=== PATIENT | female | born 1955 | race Caucasian/White ===

== ENCOUNTER → 2016-04-01 | Outpatient (CLI) | payer OTHER ==
[~2016-04-01] MED LIST: ACET325T96 PO; BISA10SU38 PR; BISA10SU7 PR; CLON0.5T3 PO; CPR500 PO; DOCU-94 PO; ERGO1CAP41 PO; FRC PO; HYOS1TAB PO; IBUP-1450 PO; LCTL45 PO; MOML PO; MULT-884 PO; NTRS PO; NYSS5 PO; ONDA4TAB46 PO; POTA-74 PO; POTA10CA28 PO; QUET1TAB32 PO; RXC/5 PO; RXC5 PO; SENN-61 PO; SODIENE PR; SORB70SO6 PO; [UNRECOGNIZED DRUG - CODE] PO
[2016-04-01 10:50] LABS: HEMATOCRIT 39.1 % (37-47); MEAN CELL VOLUME 93.1 fL (80-100); MEAN CORPUSCULAR HEMOGLOBIN 30.5 pg (25-34); MEAN CORPUSCULAR HGB CONC 32.7 g/dl (32-36); MEAN PLATELET VOLUME 10.8 fL (7.4-10.4); PLATELET COUNT 137 K/uL (130-400); WHITE BLOOD COUNT 3.84 K/uL (4.8-10.8)
[2016-04-01 10:57] LABS: ALT/SGPT 20 U/L (12-78); AST/SGOT 14 U/L (15-37); BLOOD UREA NITROGEN 12 mg/dl (7-18); BUN/CREATININE RATIO 21.3 (10-20); CALCIUM 8.4 mg/dl (8.5-10.1); CARBON DIOXIDE 28 mmol/L (21-32); CHLORIDE 111 mmol/L (98-107); CREATININE 0.56 mg/dl (0.60-1.20); GLUCOSE 78 mg/dl (70-99); POTASSIUM 3.8 mmol/L (3.5-5.1); SODIUM 147 mmol/L (136-145)
[2016-04-01 11:07] LABS: ALB/GLOB RATIO 0.8 (0.9-2)
[2016-04-01 11:08] LABS: ALKALINE PHOSPHATASE 86 U/L (45-117)
[2016-04-01 11:44] LABS: BASO % 0.3 %; BASO ABS # 0.01 K/uL (0-0.2); COMPLETE YES; IG% 0.3 %; LYMPH % 58.3 %; LYMPH ABS # 2.24 K/uL (1.2-3.4); NEUT % 34.1 %
--- NOTE | 2016-04-02 09:53 | CODING QUERY NO DIAGNOSIS ---
TREATMENT RENDERED WITHOUT A DIAGNOSIS 51 To promote full compliance with coding requirements relating to patient care, physician participation is requested in all cases of university lecturer uncertainty. Please assist us with providing a diagnosis/symptom for the test(s) below: A diagnosis/symptom was not documented on your Order. A valid diagnosis/symptom is required to bill all insurances. Please remember that we are unable to code a diagnosis of rule out, probable, possible, questionable, or suspected. DOS Tests that require a diagnosis: * TSH DIAGNOSIS: *THE DX CODE S06.zx ON YOUR ORDER IS AN INVALID CODE, CAN YOU PLEASE ADD CORRECT CODE Provider Signature: Date: Thank you Anni Coronel Health Information Management Once completed, please kindly fax back to [phone] For questions please call [phone]
== END | disposition home or self-care (01) ==
LOC: C.LABUPUNI 10:26
PROVIDERS: ATTEND Family Medicine
DX: E87.6 Hypokalemia (principal); R48.9 Unspecified symbolic dysfunctions; E03.9 Hypothyroidism, unspecified

== ENCOUNTER → 2016-04-08 | Outpatient (CLI) | payer OTHER ==
[2016-04-08 09:20] LABS: BLOOD UREA NITROGEN 13 mg/dl (7-18); BUN/CREATININE RATIO 23.8 (10-20); CALCIUM 8.6 mg/dl (8.5-10.1); CARBON DIOXIDE 28 mmol/L (21-32); CHLORIDE 109 mmol/L (98-107); CREATININE 0.53 mg/dl (0.60-1.20); GLUCOSE 92 mg/dl (70-99); POTASSIUM 3.8 mmol/L (3.5-5.1); SODIUM 146 mmol/L (136-145)
--- NOTE | 2016-04-12 06:40 | CODING QUERY NO DIAGNOSIS ---
: 1955 TREATMENT RENDERED WITHOUT A DIAGNOSIS To promote full compliance with coding requirements relating to patient care, physician participation is requested in all cases of tobacco buyer uncertainty. Please assist us with providing a diagnosis/symptom for the test(s) below: A diagnosis/symptom was not documented on your Order. A valid diagnosis/symptom is required to bill all insurances. Please remember that we are unable to code a diagnosis of rule out, probable, possible, questionable, or suspected. Tests that require a diagnosis: * BMP DOS: 04/08/16 DIAGNOSIS: Provider Signature: Date: Thank you Nan Manning Health Information Management Once completed, please kindly fax back to [phone] For questions please call [phone]
== END ==
LOC: C.LABUPUNI 08:52
PROVIDERS: ATTEND Family Medicine
DX: R63.4 Abnormal weight loss (principal)

== ENCOUNTER → 2016-05-26 | Outpatient (CLI) | payer OTHER ==
[2016-05-26 10:16] LABS: BLOOD UREA NITROGEN 8 mg/dl (7-18); CALCIUM 8.4 mg/dl (8.5-10.1); CARBON DIOXIDE 29 mmol/L (21-32); CHLORIDE 109 mmol/L (98-107); CREATININE 0.43 mg/dl (0.60-1.20); GLUCOSE 73 mg/dl (70-99); POTASSIUM 3.5 mmol/L (3.5-5.1); SODIUM 145 mmol/L (136-145)
== END ==
LOC: C.LABUPUNI 09:41
PROVIDERS: ATTEND Family Medicine
DX: R48.9 Unspecified symbolic dysfunctions (principal)

== ENCOUNTER → 2016-07-14 | Outpatient (CLI) | payer OTHER ==
[~2016-07-14] MED LIST changes: +CHOL2000 PO; -ERGO1CAP41 PO; +ERGO500011 PO; +FAMO20TA11 PO; +GABA1CAP PO; +IPRASOL4 INH; +MULT-506 PO; +POTA20TA16 PO; +QUET1TAB30 PO
[2016-07-14 08:45] LABS: ALT/SGPT 15 U/L (12-78); BLOOD UREA NITROGEN 10 mg/dl (7-18); BUN/CREATININE RATIO 20.6 (10-20); CARBON DIOXIDE 27 mmol/L (21-32); CHLORIDE 110 mmol/L (98-107); CREATININE 0.48 mg/dl (0.60-1.20); GLUCOSE 72 mg/dl (70-99); POTASSIUM 3.8 mmol/L (3.5-5.1); SODIUM 144 mmol/L (136-145)
[2016-07-14 08:55] LABS: ALB/GLOB RATIO 0.8 (0.9-2); ALKALINE PHOSPHATASE 92 U/L (45-117); AST/SGOT 10 U/L (15-37)
[2016-07-14 09:05] LABS: BASO % 0.2 %; BASO ABS # 0.01 K/uL (0-0.2); COMPLETE YES; HEMATOCRIT 42.2 % (37-47); LYMPH % 48.7 %; MEAN CELL VOLUME 95.3 fL (80-100); MEAN CORPUSCULAR HEMOGLOBIN 31.4 pg (25-34); MEAN CORPUSCULAR HGB CONC 32.9 g/dl (32-36); MEAN PLATELET VOLUME 10.6 fL (7.4-10.4); MONO % 5.6 %; NEUT % 45.5 %; PLATELET COUNT 160 K/uL (130-400); RED BLOOD COUNT 4.43 M/uL (4.2-5.4); WHITE BLOOD COUNT 5.34 K/uL (4.8-10.8)
[2016-07-14 09:06] LABS: CALCIUM 8.8 mg/dl (8.5-10.1)
--- NOTE | 2016-07-19 10:15 | CODING QUERY MEDICAL NECESSITY ---
SUPPORTING DIAGNOSIS NEEDED A supporting diagnosis is required for the test/procedure performed on this patient in order for us to be reimbursed by the patient's insurance. Please provide a supporting diagnosis for the following test/procedure listed below next to the test name along with your signature. *If there is no additional diagnosis for this patient that would support the following test/procedure please document that below next to the test/procedure. Test(s)/Procedure(s) that require a supporting diagnosis: DOS 07/14 * Vitamin D DIAGNOSIS: Provider Signature: Date: Thank you Maral Poe Health Information Management Once completed, please kindly fax back to [phone] For questions please call [phone]
== END ==
LOC: C.LABUPUNI 08:15
PROVIDERS: ATTEND Family Medicine
DX: I10 Essential (primary) hypertension (principal); S06.2X9A Diffuse traumatic brain injury with loss of consciousness of unspecified duration, initial encounter; X58.XXXA Exposure to other specified factors, initial encounter; I69.910 Attention and concentration deficit following unspecified cerebrovascular disease; E55.9 Vitamin D deficiency, unspecified

== ENCOUNTER 2016-07-18 12:56 | Inpatient (IN) | payer OTHER ==
[~2016-07-18] VITALS: Ht 165.1 cm; Wt 62.0 kg
[~2016-07-18 12:56] MED LIST changes: -ACET325T96 PO; -BISA10SU38 PR; -BISA10SU7 PR; -CHOL2000 PO; -CLON0.5T3 PO; -CPR500 PO; -DOCU-94 PO; -ERGO500011 PO; -FAMO20TA11 PO; -GABA1CAP PO; -HYOS1TAB PO; -IBUP-1450 PO; -IPRASOL4 INH; -LCTL45 PO; -MOML PO; -MULT-506 PO; -MULT-884 PO; -NTRS PO; -NYSS5 PO; -ONDA4TAB46 PO; -POTA-74 PO; -POTA10CA28 PO; -POTA20TA16 PO; -QUET1TAB30 PO; -QUET1TAB32 PO; -RXC/5 PO; -RXC5 PO; -SENN-61 PO; -SODIENE PR; -SORB70SO6 PO; -[UNRECOGNIZED DRUG - CODE] PO
[2016-07-18 13:56] LABS: COMPLETE YES; HEMATOCRIT 48.3 % (37-47); IG% 0.2 %; LYMPH % 4.4 %; LYMPH ABS # 0.48 K/uL (1.2-3.4); MEAN CELL VOLUME 93.4 fL (80-100); MEAN CORPUSCULAR HEMOGLOBIN 31.5 pg (25-34); MEAN CORPUSCULAR HGB CONC 33.7 g/dl (32-36); MEAN PLATELET VOLUME 10.4 fL (7.4-10.4); MONO % 6.4 %; PLATELET COUNT 181 K/uL (130-400); RED BLOOD COUNT 5.17 M/uL (4.2-5.4); WHITE BLOOD COUNT 10.89 K/uL (4.8-10.8)
[2016-07-18] MEDS ORDERED: SODIUM CHLORIDE 0.9% 1000ML 500 ML IV STA (13:56)
[2016-07-18] MEDS ORDERED: SODIUM CHLORIDE 0.9% 1000ML 1,000 ML IV STA (13:56)
[2016-07-18] MEDS ORDERED: ONDANSETRON INJ 2 MG/ML 2 ML VIAL IV STA (13:56)
[2016-07-18] MEDS ORDERED: PROMETHAZINE HCL INJ 6.25 MG in SODIUM CHLORIDE 0.9% 50ML 50 ML IV STA (13:56)
[2016-07-18] MEDS ORDERED: MoRPHine SULFATE 4 MG/ML 1 ML CARP\\VIAL IV PRN (14:00)
--- NOTE | 2016-07-18 14:02 | EMERGENCY ROOM VISIT NOTE ---
History Report prepared by Twyla: Luis Dacosta Under the Supervision of: Dr. Elias Merritt M.D. First contact with patient: 13:49 Chief Complaint: ABDOMINAL PAIN Stated Complaint: ABD PAIN History of Present Illness The patient is a 60 year old female who presents to the Emergency Room via EMS with complaints of abdominal pain that began yesterday. This history is given by the family due to the patient's altered mental status that is baseline since her brain aneurysm. 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 This occurred 9 years ago. Via the family, the patient has been having severe abdominal pain with vomiting and diarrhea since yesterday. The family states that the REPAIR DEPARTMENT MANAGER stated that she looked worse today that she was yesterday. They deny any other symptoms at this time. She has a Sulfa allergy. Source of History: family, nursing staff Onset: yesterday Position: abdomen Symptom Intensity: severe Quality: ache Timing: worsening Associated Symptoms: + abdominal pain, + diarrhea, + vomiting Note: They deny any other abnormal symptoms at this time. Review of Systems See HPI for pertinent positives & negatives. A total of 10 systems reviewed and were otherwise negative. Past Medical & Surgical Medical Problems: (1) Brain injury (2) Hyperlipidemia (3) Hypertension Surgical Problems: (1) H/O brain surgery Family History Omitted secondary to age. Social History Smoking Status: Never Smoker Smokeless Tobacco Use: No Alcohol Use: none Drug Use: none Housing Status: assisted living Occupation Status: disabled Current/Historical Medications Scheduled Acetaminophen Tab (Tylenol), 650 MG PO Q4H Clonazepam (Klonopin), 0.5 MG PO BID Docusate Sodium (Colace), 100 CAP PO QAM Enteral Nutrition Formula (Nutritional Supplement), 1 DOSE PO QAM Ergocalciferol (Vitamin D 91729 Unit), 50,000 UNIT PO WK Famotidine (Pepcid Ac Ez Chews Maximu), 20 MG PO QAM Hyoscyamine Sulfate (Levsin), 0.125 MG PO QID Lactulose (Lactulose), 30 GM PO QAM Multiple Vitamin (Multi Vitamin Daily), 1 TAB PO QAM Potassium Chloride (Micro-K Ext Rel), 20 MEQ PO QAM Quetiapine Fumarate (Seroquel), 50 MG PO HS Senna (Senokot), 1 TAB PO BID Sodium Phosphate/Biphosphate (Fleet Enema), 1 EA MI DAILY Scheduled PRN Bisacodyl (Bisac-Evac), 10 MG MI UD PRN for Constipation Bisacodyl (Dulcolax), 10 MG MI UD PRN for Constipation Ibuprofen (Motrin), 600 MG PO Q6H PRN for Pain Magnesium Hydroxide (Milk Of Magnesia), 30 ML PO UD PRN for Constipation Ondansetron Hcl (Zofran), 4 MG PO Q4H PRN for Nausea Oxycodone HCl (Oxycodone HCl), 5 MG PO TID PRN for Headache Sorbitol (Laxative) (Sorbitol), 15 ML PO HS PRN for Constipation Allergies Coded Allergies: Morphine (Verified Allergy, Intermediate, hives, 07/18/16) Sulfa Antibiotics (Verified Allergy, Unknown, UNKNOWN, 07/18/16) Physical Exam Vital Signs Date Time Temp Pulse Resp B/P Pulse Ox O2 Delivery O2 Flow Rate FiO2 07/18/16 15:28 78 07/18/16 15:09 83 140/91 95 Room Air 07/18/16 14:15 72 20 114/68 98 Room Air 07/18/16 13:05 76 07/18/16 13:03 37.2 73 30 168/92 94 Room Air Physical Exam GENERAL: Patient is in moderate distress secondary to pain. Nonverbal. Grunting. HEENT: There is a deformity to the right skull consistent with previous surgery. Moist mucous membranes. No acute facial trauma. NECK: No stridor, no adenopathy, no meningismus, trachea is midline. LUNGS: Clear to auscultation bilaterally, no wheeze, no rhonchi, breath sounds equal. HEART: Without murmurs gallops or rubs, regular rate and rhythm. ABDOMEN: Soft, appears nontender by exam, bowel sounds positive, no hernias, no peritonitis. EXTREMITIES: No cyanosis or edema, full range of motion of all the joints without pain or difficulty, no signs for acute trauma. NEUROLOGIC: Nonverbal. Awake. Left sided paralysis. SKIN: No rash, no jaundice, no diaphoresis. Medical Decision & Procedures ER Provider Diagnostic Interpretation: Radiology results are stated below per my review and radiologist interpretation: CHEST ONE VIEW PORTABLE HISTORY: Generalized abdominal pain. COMPARISON: None. FINDINGS: The heart is normal in size. There are low lung volumes. No pleural effusions. No pneumothorax. No focal lung consolidations to suggest pneumonia. No evidence for pulmonary edema. IMPRESSION: No acute process. Electronically signed by: Rigo Reed M.D. 07/18/2016 2:38 PM Dictated Date/Time: 07/18/2016 2:37 PM ABDOMEN AND PELVIS CT WITH IV CONTRAST CT DOSE: 509.26 mGy.cm HISTORY: Generalized abdominal pain. TECHNIQUE: Multiaxial CT images of the abdomen and pelvis were performed following the use of intravenous contrast. COMPARISON STUDY: None. FINDINGS: Bibasilar linear densities consistent with subsegmental atelectasis. No pneumoperitoneum. No pneumatosis. No suspicious lytic or blastic osseous lesions. There are 3 hypodense lesions within the liver. Dominant lesion within the right hepatic lobe measures 1.4 cm. These are incompletely characterized on this single phase study but favor cysts or hemangiomas. The spleen, pancreas, adrenal glands are unremarkable. The kidneys enhance normally. Bilateral peripelvic renal cysts. The bladder is unremarkable. The uterus and bilateral adnexa are within normal limits. No bowel wall thickening or obstruction. A few colonic diverticula. Normal appendix. No retroperitoneal lymphadenopathy. Distended gallbladder with an enhancing wall and pericholecystic fluid/inflammatory change. This is consistent with acute cholecystitis. Normal caliber common bile duct. IMPRESSION: 1. Distended gallbladder with an enhancing wall and pericholecystic fluid/inflammatory change. This is consistent with acute cholecystitis. 2. Normal caliber common bile duct. 3. No bowel wall thickening or obstruction. 4. Additional findings as described above. Electronically signed by: Rigo Reed M.D. 07/18/2016 3:24 PM Dictated Date/Time: 07/18/2016 3:19 PM Laboratory Results 07/18/16 13:40 Red Blood Count 5.17, Mean Corpuscular Volume 93.4, Mean Corpuscular Hemoglobin 31.5, Mean Corpuscular Hemoglobin Concent 33.7, Mean Platelet Volume 10.4, Neutrophils (%) (Auto) 89.0, Lymphocytes (%) (Auto) 4.4, Monocytes (%) (Auto) 6.4, Eosinophils (%) (Auto) 0.0, Basophils (%) (Auto) 0.0, Neutrophils # (Auto) 9.69, Lymphocytes # (Auto) 0.48, Monocytes # (Auto) 0.70, Eosinophils # (Auto) 0.00, Basophils # (Auto) 0.00 07/18/16 13:40 Test 07/18/16 13:40 07/18/16 14:18 07/18/16 15:30 White Blood Count 10.89 K/uL (4.8-10.8) Red Blood Count 5.17 M/uL (4.2-5.4) Hemoglobin 16.3 g/dL (12.0-16.0) Hematocrit 48.3 % (37-47) Mean Corpuscular Volume 93.4 fL (80-100) Mean Corpuscular Hemoglobin 31.5 pg (25-34) Mean Corpuscular Hemoglobin Concent 33.7 g/dl (32-36) Platelet Count 181 K/uL (130-400) Mean Platelet Volume 10.4 fL (7.4-10.4) Neutrophils (%) (Auto) 89.0 % Lymphocytes (%) (Auto) 4.4 % Monocytes (%) (Auto) 6.4 % Eosinophils (%) (Auto) 0.0 % Basophils (%) (Auto) 0.0 % Neutrophils # (Auto) 9.69 K/uL (1.4-6.5) Lymphocytes # (Auto) 0.48 K/uL (1.2-3.4) Monocytes # (Auto) 0.70 K/uL (0.11-0.59) Eosinophils # (Auto) 0.00 K/uL (0-0.5) Basophils # (Auto) 0.00 K/uL (0-0.2) RDW Standard Deviation 44.9 fL (36.4-46.3) RDW Coefficient of Variation 13.1 % (11.5-14.5) Immature Granulocyte % (Auto) 0.2 % Immature Granulocyte # (Auto) 0.02 K/uL (0.00-0.02) Prothrombin Time 12.0 SECONDS (9.0-12.0) Prothromb Time International Ratio 1.1 (0.9-1.1) Activated Partial Thromboplast Time 23.8 SECONDS (21.0-31.0) Partial Thromboplastin Ratio 0.9 Anion Gap 8.0 mmol/L (3-11) Est Creatinine Clear Calc Drug Dose 70.9 ml/min Estimated GFR () 100.6 Estimated GFR (Non- 86.8 BUN/Creatinine Ratio 14.1 (10-20) Calcium Level 9.4 mg/dl (8.5-10.1) Total Bilirubin 2.1 mg/dl (0.2-1) Aspartate Amino Transf (AST/SGOT) 196 U/L (15-37) Alanine Aminotransferase (ALT/SGPT) 144 U/L (12-78) Alkaline Phosphatase 131 U/L (45-117) Troponin I 0.016 ng/ml (0-0.045) Total Protein 8.0 gm/dl (6.4-8.2) Albumin 3.5 gm/dl (3.4-5.0) Globulin 4.5 gm/dl (2.5-4.0) Albumin/Globulin Ratio 0.8 (0.9-2) Lipase 47 U/L (73-393) Chemistry Specimen Hemolysis Lactic Acid Level 2.5 mmol/L (0.4-2.0) Urine Color DK YELLOW Urine Appearance CLOUDY (CLEAR) Urine pH 6.0 (4.5-7.5) Urine Specific [place] 1.023 (1.000-1.030) Urine Protein TRACE (NEG) Urine Glucose (UA) NEG (NEG) Urine Ketones 1+ (NEG) Urine Occult Blood NEG (NEG) Urine Nitrite POS (NEG) Urine Bilirubin NEG (NEG) Urine Urobilinogen NEG (NEG) Urine Leukocyte Esterase TRACE (NEG) Urine WBC (Auto) 1-5 /hpf (0-5) Urine RBC (Auto) 0-4 /hpf (0-4) Urine Hyaline Casts (Auto) 0 /lpf (0-5) Urine Epithelial Cells (Auto) 0-5 /lpf (0-5) Urine Bacteria (Auto) 4+ (NEG) Laboratory results reviewed by me. Medications Administered Medications (Trade) Dose Ordered Sig/Mini Route Start Time Stop Time Status Last Admin Dose Admin Sodium Chloride (Nss 1000ml) 500 ml @ 999 mls/hr Q31M STAT IV 07/18/16 13:56 07/18/16 14:26 DC 07/18/16 15:00 999 MLS/HR Ondansetron HCl 4 mg 4 mg NOW STAT IV 07/18/16 13:56 07/18/16 13:59 DC 07/18/16 14:10 4 MG Sodium Chloride (Nss 1000ml) 1,000 ml @ 200 mls/hr Q5H STAT IV 07/18/16 13:56 07/18/16 18:55 DC 07/18/16 14:12 200 MLS/HR Morphine Sulfate 4 mg 4 mg Q30M PRN IV 07/18/16 14:00 07/18/16 19:14 DC 07/18/16 14:11 4 MG Promethazine HCl/ Sodium Chloride (Phenergan Inj/ Nss 50ml) 50.25 ml @ 204 mls/hr NOW STAT IV 07/18/16 13:56 07/18/16 14:10 DC 07/18/16 14:12 204 MLS/HR Diphenhydramine HCl (Benadryl Inj) 50 mg STK-MED ONCE .ROUTE 07/18/16 14:27 07/18/16 14:28 DC 07/18/16 14:24 50 MG Piperacillin Sod/ Tazobactam Sod (Zosyn Iv) 4.5 gm NOW STAT IV 07/18/16 15:30 07/18/16 15:32 DC 07/18/16 17:36 4.5 GM ECG Indication: abdominal pain Rate (beats per minute): 72 Rhythm: normal sinus Findings: no acute ischemic change, no ectopy ED Course 1349: The patient was evaluated in room B4B. A complete history and physical exam was performed. 1356: Ordered Promethazine HCl 6.25 mg/Sodium Chloride 50.25 ml @ 204 mls/hr IV , Sodium Chloride 1000 ml @ 200 mls/hr IV, Zofran Inj 4 mg IV, Sodium Chloride 500 ml @ 999 mls/hr IV 1400: Ordered Morphine Sulfate 4 mg IV 1427: Ordered Benadryl Inj 25 mg .ROUTE 1530: Ordered Zosyn Iv 4.5 gm IV 1533: At this time, I spoke with Dr. Blackmon of General Surgery. He recommended further evaluation with medicine. He said the patient should receive IV antibiotics and eventually GI. 1541: Upon reexamination the patient is resting. I discussed results and treatment plan with the patient's family. They verbalize agreement and understanding. The patient will be evaluated by Dr. Devine - [facility] [place], for further management. Medical Decision Differential diagnosis includes but is not limited to viral illness, dehydration , bowel obstruction, foodborne illness, UTI, cardiac ischemia, diverticulitis, appendicitis, acute cholecystitis and pneumonia. There is a mild leukocytosis, this could be consistent with infection. No concerning anemia. Potassium is slightly low, no kidney failure. Hepatitis was present. No pancreatitis. Lactic acid level was mildly elevated, this could be consistent with sepsis and/or dehydration. Urinalysis is suggestive of infection. Urine culture is pending. Chest film does not show pneumonia or free air. EKG shows a sinus rhythm, no acute ischemia. Abdominal and pelvis CT does not show any bowel obstruction or diverticulitis. Acute cholecystitis was noted. The patient received IV saline, IV Zofran and IV morphine. She was given IV Zosyn. She had a histamine reaction from the morphine and received IV Benadryl with a good response. Admission/observation is warranted. I did speak with the on-call surgeon as well as the on-call hospitalist. Case management has been involved. I did inform the family of all the findings. Consults Time Called: 1530 Consulting Physician: Dr. Blackmon - General Surgery Returned Call: [phone] We discussed the patient's case. Please see the ED course for more information. Additional Consults: Time Called: 1538 Consulted Physician: Dr. Devine - [facility] [place] Returned Call: [phone] Additional Comments: He will be evaluating the patient for further management. Impression Primary Impression: Acute cholecystitis Scribe Attestation The scribe's documentation has been prepared under my direction and personally reviewed by me in its entirety. I confirm that the note above accurately reflects all work, treatment, procedures, and medical decision making performed by me. Departure Information Dispostion Being Evaluated By Hospitalist Referrals [facility] (PCP) Patient Instructions My [facility]
[2016-07-18 14:15] LABS: ALB/GLOB RATIO 0.8 (0.9-2); BUN/CREATININE RATIO 14.1 (10-20); CALCIUM 9.4 mg/dl (8.5-10.1); CREATININE 0.74 mg/dl (0.60-1.20); POTASSIUM 2.9 mmol/L (3.5-5.1)
[2016-07-18] MEDS ORDERED: [UNRECOGNIZED DRUG - CODE] PO (14:21)
[2016-07-18] MEDS ORDERED: LCTL45 PO (14:21)
[2016-07-18] MEDS ORDERED: DOCU-94 PO (14:21)
[2016-07-18] MEDS ORDERED: NTRS PO (14:24)
[2016-07-18] MEDS ORDERED: MULT-884 PO (14:24)
[2016-07-18] MEDS ORDERED: POTA-74 PO (14:24)
[2016-07-18] MEDS ORDERED: POTA10CA28 PO (14:25)
[2016-07-18 14:27] LABS: INR 1.1 (0.9-1.1); PARTIAL THROMBOPLASTIN RATIO 0.9
[2016-07-18] MEDS ORDERED: CLON0.5T3 PO (14:27)
[2016-07-18] MEDS ORDERED: SORB70SO6 PO (14:27)
[2016-07-18] MEDS ORDERED: SENN-61 PO (14:27)
[2016-07-18] MEDS ORDERED: ERGO500011 PO (14:27)
[2016-07-18] MEDS ORDERED: DiphenhydrAMINE HCL 50 MG/ML VIAL ONE (14:27)
[2016-07-18] MEDS ORDERED: QUET1TAB32 PO (14:27)
[2016-07-18] MEDS ORDERED: RXC/5 PO (14:29)
[2016-07-18] MEDS ORDERED: OPTIRAY 320 IV PRN (14:30)
[2016-07-18] MEDS ORDERED: HYOS1TAB PO (14:31)
[2016-07-18] MEDS ORDERED: BISA10SU7 PR (14:31)
[2016-07-18] MEDS ORDERED: BISA10SU38 PR (14:31)
[2016-07-18] MEDS ORDERED: SODIENE PR (14:32)
[2016-07-18] MEDS ORDERED: MOML PO (14:32)
[2016-07-18] MEDS ORDERED: IBUP-1450 PO (14:32)
[2016-07-18] MEDS ORDERED: ACET325T96 PO (14:33)
[2016-07-18] MEDS ORDERED: ONDA4TAB46 PO (14:33)
--- NOTE | 2016-07-18 14:40 | DIAGNOSTIC IMAGING REPORT ---
CHEST ONE VIEW PORTABLE HISTORY: Generalized abdominal pain. COMPARISON: None. FINDINGS: The heart is normal in size. There are low lung volumes. No pleural effusions. No pneumothorax. No focal lung consolidations to suggest pneumonia. No evidence for pulmonary edema. IMPRESSION: No acute process. Electronically signed by: Rigo Reed M.D. 07/18/2016 2:38 PM Dictated Date/Time: 07/18/2016 2:37 PM
--- NOTE | 2016-07-18 15:27 | DIAGNOSTIC IMAGING REPORT ---
ABDOMEN AND PELVIS CT WITH IV CONTRAST CT DOSE: 509.26 mGy.cm HISTORY: Generalized abdominal pain. TECHNIQUE: Multiaxial CT images of the abdomen and pelvis were performed following the use of intravenous contrast. COMPARISON STUDY: None. FINDINGS: Bibasilar linear densities consistent with subsegmental atelectasis. No pneumoperitoneum. No pneumatosis. No suspicious lytic or blastic osseous lesions. There are 3 hypodense lesions within the liver. Dominant lesion within the right hepatic lobe measures 1.4 cm. These are incompletely characterized on this single phase study but favor cysts or hemangiomas. The spleen, pancreas, adrenal glands are unremarkable. The kidneys enhance normally. Bilateral peripelvic renal cysts. The bladder is unremarkable. The uterus and bilateral adnexa are within normal limits. No bowel wall thickening or obstruction. A few colonic diverticula. Normal appendix. No retroperitoneal lymphadenopathy. Distended gallbladder with an enhancing wall and pericholecystic fluid/inflammatory change. This is consistent with acute cholecystitis. Normal caliber common bile duct. IMPRESSION: 1. Distended gallbladder with an enhancing wall and pericholecystic fluid/inflammatory change. This is consistent with acute cholecystitis. 2. Normal caliber common bile duct. 3. No bowel wall thickening or obstruction. 4. Additional findings as described above. Electronically signed by: Rigo Reed M.D. 07/18/2016 3:24 PM Dictated Date/Time: 07/18/2016 3:19 PM
[2016-07-18] MEDS ORDERED: PIPERACILLIN/TAZOBACTAM 4.5 GM/100ML D5W IV STA (15:30)
[2016-07-18] MEDS ORDERED: ACETAMINOPHEN 325 MG TAB PO PRN (16:00)
[2016-07-18] MEDS ORDERED: ONDANSETRON INJ 2 MG/ML 2 ML VIAL IV PRN (16:00)
[2016-07-18] MEDS ORDERED: MoRPHine SULFATE 2 MG/ML CARP IV PRN (16:00)
[2016-07-18 16:19] LABS: URINE APPEARANCE CLOUDY (CLEAR); URINE BILIRUBIN NEG (NEG); URINE COLOR DK YELLOW; URINE EPITHELIAL CELL AUTO 0-5 /lpf (0-5); URINE NITRITE POS (NEG); URINE SPECIFIC GRAVITY 1.023 (1.000-1.030); UROBILINOGEN NEG (NEG); ZZURINE CULT IF INDIC CATH YES
[2016-07-18 16:24] LABS: MANUAL MICROSCOPIC REQUIRED? NO; REVIEW REQ? NO
[2016-07-18 16:37] VITALS: Ht 165.1 cm; Wt 62.0 kg
--- NOTE | 2016-07-18 17:04 | History and Physical ---
History & Physical Date & Time of Service: Jul 18, 2016 at 16:48 Chief Complaint: Abd Pain Primary Care Physician: Eben Thayer History of Present Illness Source: family, hospital records, [facility] 60 yo female with h/o large right sided stroke that required craniotomy, but unfortunately left her with left sided paralysis and non-verbal status, was sent to the ED from [facility] due to vomiting and generally not looking well. The patient could not give any history, all was obtained from the ED physician who also discussed with the SNF staff. All they could say was that she was eating less, vomiting and seemed uncomfortable. No fevers were documented and vitals appeared stable. She was sent to the ED for evaluation. She was afebrile, vitals stable, WBC was 10.8. A CT abdomen/pelvis showed cholecystitis , no signs of biliary duct dilation. Case was discussed with surgery by the ED physician and he recommended IV fluids and antibiotics and GI consultation to evaluate for biliary stones. Her LFT were noted to be mildly elevated. On my exam, the patient was non-verbal, no history. I spoke with family members here in the ED, they could not offer me any other history. I answered all of their questions. Past Medical/Surgical History H/o right sided stroke, large, with craniotomy residual left sided paralysis, UE contracture aphasia, completely non-verbal Medical Problems: (1) Brain injury Status: Chronic (2) Hyperlipidemia Status: Chronic (3) Hypertension Status: Chronic Surgical Problems: (1) H/O brain surgery Status: Resolved Social History Smoking Status: Never Smoker Smokeless Tobacco Use: No Drug Use: none Occupational Status: disabled Immunizations History of Influenza Vaccine: Unknown History of Tetanus Vaccine?: Unknown History of Pneumococcal: Unknown History of Hepatitis B Vaccine: Unknown Multi-Drug Resistant Organisms History of MDRO: No Allergies Coded Allergies: Morphine (Verified Allergy, Intermediate, hives, 07/18/16) Sulfa Antibiotics (Verified Allergy, Unknown, UNKNOWN, 07/18/16) Home Medications Scheduled Acetaminophen Tab (Tylenol), 650 MG PO Q4H Clonazepam (Klonopin), 0.5 MG PO BID Docusate Sodium (Colace), 100 CAP PO QAM Enteral Nutrition Formula (Nutritional Supplement), 1 DOSE PO QAM Ergocalciferol (Vitamin D 89858 Unit), 50,000 UNIT PO WK Famotidine (Pepcid Ac Ez Chews Maximu), 20 MG PO QAM Hyoscyamine Sulfate (Levsin), 0.125 MG PO QID Lactulose (Lactulose), 30 GM PO QAM Multiple Vitamin (Multi Vitamin Daily), 1 TAB PO QAM Potassium Chloride (Micro-K Ext Rel), 20 MEQ PO QAM Quetiapine Fumarate (Seroquel), 50 MG PO HS Senna (Senokot), 1 TAB PO BID Sodium Phosphate/Biphosphate (Fleet Enema), 1 EA [place] DAILY Scheduled PRN Bisacodyl (Bisac-Evac), 10 MG [place] UD PRN for Constipation Bisacodyl (Dulcolax), 10 MG AL UD PRN for Constipation Ibuprofen (Motrin), 600 MG PO Q6H PRN for Pain Magnesium Hydroxide (Milk Of Magnesia), 30 ML PO UD PRN for Constipation Ondansetron Hcl (Zofran), 4 MG PO Q4H PRN for Nausea Oxycodone HCl (Oxycodone HCl), 5 MG PO TID PRN for Headache Sorbitol (Laxative) (Sorbitol), 15 ML PO HS PRN for Constipation Review of Systems could not review systems due to completely non-verbal status Physical Exam Vital Signs Date Time Temp Pulse Resp B/P Pulse Ox O2 Delivery O2 Flow Rate FiO2 07/18/16 15:28 78 07/18/16 15:09 83 140/91 95 Room Air 07/18/16 13:05 76 07/18/16 13:03 37.2 73 30 168/92 94 Room Air General Appearance: WD/WN, no apparent distress Head: atraumatic, + pertinent finding (evidence of prior right craniotomy, right parietal/frontal lobes concave) Eyes: normal inspection, PERRL, sclerae normal ENT: normal ENT inspection, pharynx normal Neck: supple, no adenopathy, no JVD, trachea midline Respiratory/Chest: chest non-tender, lungs clear, no respiratory distress, no accessory muscle use, + decreased breath sounds (bases) Cardiovascular: regular rate, rhythm, no edema, no gallop, no JVD, no murmur, normal peripheral pulses Abdomen/GI: normal bowel sounds, non tender (could not elicit any pain in RUQ, negative Padron sign), soft, no organomegaly Back: normal inspection, no CVA tenderness, no muscle spasm, normal range of motion Extremities/Musculoskelatal: no calf tenderness, normal capillary refill, no pedal edema, non-tender, pelvis stable Neurologic/Psych: alert, normal mood/affect, + motor weakness (left sided paralysis, left hand contracture), + pertinent finding (cannot follow commands) Skin: normal color, warm/dry, no rash Lymphatic: no adenopathy Diagnostics Laboratory Results Results Past 24 Hours Test 07/18/16 13:40 07/18/16 14:18 07/18/16 15:30 Range/Units White Blood Count 10.89 4.8-10.8 K/uL Red Blood Count 5.17 4.2-5.4 M/uL Hemoglobin 16.3 12.0-16.0 g/dL Hematocrit 48.3 37-47 % Mean Corpuscular Volume 93.4 80-100 fL Mean Corpuscular Hemoglobin 31.5 25-34 pg Mean Corpuscular Hemoglobin Concent 33.7 32-36 g/dl Platelet Count 181 130-400 K/uL Mean Platelet Volume 10.4 7.4-10.4 fL Neutrophils (%) (Auto) 89.0 % Lymphocytes (%) (Auto) 4.4 % Monocytes (%) (Auto) 6.4 % Eosinophils (%) (Auto) 0.0 % Basophils (%) (Auto) 0.0 % Neutrophils # (Auto) 9.69 1.4-6.5 K/uL Lymphocytes # (Auto) 0.48 1.2-3.4 K/uL Monocytes # (Auto) 0.70 0.11-0.59 K/uL Eosinophils # (Auto) 0.00 0-0.5 K/uL Basophils # (Auto) 0.00 0-0.2 K/uL RDW Standard Deviation 44.9 36.4-46.3 fL RDW Coefficient of Variation 13.1 11.5-14.5 % Immature Granulocyte % (Auto) 0.2 % Immature Granulocyte # (Auto) 0.02 0.00-0.02 K/uL Prothrombin Time 12.0 9.0-12.0 SECONDS Prothromb Time International Ratio 1.1 0.9-1.1 Activated Partial Thromboplast Time 23.8 21.0-31.0 SECONDS Partial Thromboplastin Ratio 0.9 Sodium Level 145 136-145 mmol/L Potassium Level 2.9 3.5-5.1 mmol/L Chloride Level 104 98-107 mmol/L Carbon Dioxide Level 33 21-32 mmol/L Anion Gap 8.0 3-11 mmol/L Blood Urea Nitrogen 10 7-18 mg/dl Creatinine 0.74 0.60-1.20 mg/dl Est Creatinine Clear Calc Drug Dose 70.9 ml/min Estimated GFR () 100.6 Estimated GFR (Non- 86.8 BUN/Creatinine Ratio 14.1 10-20 Random Glucose 157 70-99 mg/dl Calcium Level 9.4 8.5-10.1 mg/dl Total Bilirubin 2.1 0.2-1 mg/dl Aspartate Amino Transf (AST/SGOT) 196 15-37 U/L Alanine Aminotransferase (ALT/SGPT) 144 12-78 U/L Alkaline Phosphatase 131 45-117 U/L Troponin I 0.016 0-0.045 ng/ml Total Protein 8.0 6.4-8.2 gm/dl Albumin 3.5 3.4-5.0 gm/dl Globulin 4.5 2.5-4.0 gm/dl Albumin/Globulin Ratio 0.8 0.9-2 Lipase 47 73-393 U/L Chemistry Specimen Hemolysis Lactic Acid Level 2.5 0.4-2.0 mmol/L Urine Color DK YELLOW Urine Appearance CLOUDY CLEAR Urine pH 6.0 4.5-7.5 Urine Specific [place] 1.023 1.000-1.030 Urine Protein TRACE NEG Urine Glucose (UA) NEG NEG Urine Ketones 1+ NEG Urine Occult Blood NEG NEG Urine Nitrite POS NEG Urine Bilirubin NEG NEG Urine Urobilinogen NEG NEG Urine Leukocyte Esterase TRACE NEG Urine WBC (Auto) 1-5 0-5 /hpf Urine RBC (Auto) 0-4 0-4 /hpf Urine Hyaline Casts (Auto) 0 0-5 /lpf Urine Epithelial Cells (Auto) 0-5 0-5 /lpf Urine Bacteria (Auto) 4+ NEG Microbiology Results 07/18/16 Urine Culture, Received Pending Diagnostic Radiology CT abdomen/pelvis IMPRESSION: 1. Distended gallbladder with an enhancing wall and pericholecystic fluid/inflammatory change. This is consistent with acute cholecystitis. 2. Normal caliber common bile duct. 3. No bowel wall thickening or obstruction. 4. Additional findings as described above. CXR normal Impression Assessment and Plan 60 yo female with history of right sided stroke, HTN, hyperlipidemia, left sided paralysis and non-verbal from stroke, here with acute cholecystitis - Acute cholecystitis: IV fluids, Zosyn IV, consult general surgery for definitive cholecystectomy check MRCP to look for biliary stones, LFT and bili mildly elevated, consult GI per surgery's request pain control with Morphine, does not appear uncomfortable but cannot verbalized Zofran PRN - Hypokalemia: give 20mEq IV now, place 40mEq in IV fluids and run at 80cc/hr - Elevated BP: likely due to pain, does not take anything chronically - h/o right sided stroke, left side paralysis: supportive care - Anxiety: Klonopin PRN, Seroquel qHS - DVT prophylaxis: heparin SC Level of Care Med/Surg Resuscitation Status FULL RESUSCITATION VTE Prophylaxis VTE Risk Assessment Done? Y/N: Yes Risk Level: High Given or contraindicated: Unfractionated heparin SQ Additional Copies To [facility]
[2016-07-18] MEDS ORDERED: PIPERACILLIN/TAZOBACTAM 4.5 GM/100ML D5W ONE (17:40)
[2016-07-18 18:16] VITALS: BP 125/77; PULSE 61; TEMP 36.5; O2SAT 98
[2016-07-18] MEDS: POTASSIUM CHLR 10 MEQ / WTR 10 MEQ in PREMIXED WATER 100 ML IV SCH ×2 (20:01→22:40)
[2016-07-18] MEDS: POTASSIUM CHLORIDE INJ 40 MEQ in SODIUM CHLORIDE 0.9% 1000ML 1,000 ML IV SCH (20:14)
[2016-07-18] MEDS: HYOSCYAMINE SULFATE 0.125 MG SL TAB PO SCH ×2 (20:14→22:40)
[2016-07-18] MEDS ORDERED: NURSING VERBAL MED ORDER ONE (20:15)
--- NOTE | 2016-07-18 20:24 | Progress Note ---
Progress Note Date of Service Jul 18, 2016. Progress Note Called by pharmacy noting that patient did have hives with first dose of Morphine in ED. Saw that patient is NPO except meds. Morphine cancelled and instead started Oxycodone 5 mg q4h PRN for pain. Will titrate upwards if not controlling pain adequately. Will continue to follow overnight.
[2016-07-18] MEDS ORDERED: HYDROmorphone INJ 0.5 MG/0.5 ML SYR IV PRN (20:30)
--- NOTE | 2016-07-18 22:31 | History and Physical ---
History & Physical Date & Time of Service: Jul 18, 2016 at 22:25 Chief Complaint: Acute Cholecytitis Primary Care Physician: Eben Thayer History of Present Illness Source: patient, clinic records, hospital records, other 60 yo female with h/o large right sided stroke that required craniotomy, but unfortunately left her with left sided paralysis and non-verbal status, was sent to the ED from [facility] due to vomiting and generally not looking well. The patient could not give any history, all was obtained from the ED physician who also discussed with the SNF staff. All they could say was that she was eating less, vomiting and seemed uncomfortable. No fevers were documented and vitals appeared stable. She was sent to the ED for evaluation. She was afebrile, vitals stable, WBC was 10.8. A CT abdomen/pelvis showed cholecystitis , no signs of biliary duct dilation. Case was discussed with surgery by the ED physician and he recommended IV fluids and antibiotics and GI consultation to evaluate for biliary stones. Her LFT were noted to be mildly elevated. On my exam, the patient was non-verbal, no history. I spoke with nurse here. pt has no nausea, no vomiting, but some abdominal pain, Past Medical/Surgical History Medical Problems: (1) Brain injury Status: Chronic (2) Hyperlipidemia Status: Chronic (3) Hypertension Status: Chronic Surgical Problems: (1) H/O brain surgery Status: Resolved Social History Smoking Status: Never Smoker Smokeless Tobacco Use: No Alcohol Use: none Drug Use: none Occupational Status: disabled Immunizations History of Influenza Vaccine: Unknown History of Tetanus Vaccine?: Unknown History of Pneumococcal: Unknown History of Hepatitis B Vaccine: Unknown Multi-Drug Resistant Organisms History of MDRO: No Allergies Coded Allergies: Morphine (Verified Allergy, Intermediate, hives, 07/18/16) Sulfa Antibiotics (Verified Allergy, Unknown, UNKNOWN, 07/18/16) Home Medications Scheduled Acetaminophen Tab (Tylenol), 650 MG PO Q4H Clonazepam (Klonopin), 0.5 MG PO BID Docusate Sodium (Colace), 100 CAP PO QAM Enteral Nutrition Formula (Nutritional Supplement), 1 DOSE PO QAM Ergocalciferol (Vitamin D 04554 Unit), 50,000 UNIT PO WK Famotidine (Pepcid Ac Ez Chews Maximu), 20 MG PO QAM Hyoscyamine Sulfate (Levsin), 0.125 MG PO QID Lactulose (Lactulose), 30 GM PO QAM Multiple Vitamin (Multi Vitamin Daily), 1 TAB PO QAM Potassium Chloride (Micro-K Ext Rel), 20 MEQ PO QAM Quetiapine Fumarate (Seroquel), 50 MG PO HS Senna (Senokot), 1 TAB PO BID Sodium Phosphate/Biphosphate (Fleet Enema), 1 EA [place] DAILY Scheduled PRN Bisacodyl (Bisac-Evac), 10 MG [place] UD PRN for Constipation Bisacodyl (Dulcolax), 10 MG [place] UD PRN for Constipation Ibuprofen (Motrin), 600 MG PO Q6H PRN for Pain Magnesium Hydroxide (Milk Of Magnesia), 30 ML PO UD PRN for Constipation Ondansetron Hcl (Zofran), 4 MG PO Q4H PRN for Nausea Oxycodone HCl (Oxycodone HCl), 5 MG PO TID PRN for Headache Sorbitol (Laxative) (Sorbitol), 15 ML PO HS PRN for Constipation Review of Systems Constitutional: No chills, No fatigue, No fever, No problem reported, No sweats , No weakness, No weight loss Eyes: No diplopia, No discharge, No eye pain, No problem reported, No redness, No worsening of vision ENT: No dental problems, No hearing loss, No nasal symptoms, No problem reported, No sore throat, No tinnitus, No trouble swallowing, No unusual epistaxis Respiratory: No cough, No dyspnea at rest, No dyspnea on exertion, No hemoptysis, No problem reported, No shortness of breath, No sputum, No wheezing Cardiovascular: No PND, No chest pain, No claudication, No edema, No orthopnea , No palpitations, No problem reported Abdomen: + pain (epigastric pain, ) Physical Exam Vital Signs Date Time Temp Pulse Resp B/P Pulse Ox O2 Delivery O2 Flow Rate FiO2 07/18/16 18:16 36.5 61 18 125/77 98 Room Air 07/18/16 18:10 Room Air 07/18/16 17:19 66 20 143/77 96 07/18/16 16:37 Room Air 07/18/16 15:28 78 07/18/16 15:09 83 140/91 95 Room Air 07/18/16 14:15 72 20 114/68 98 Room Air 07/18/16 13:05 76 07/18/16 13:03 37.2 73 30 168/92 94 Room Air General Appearance: WD/WN, no apparent distress Head: atraumatic, + pertinent finding (evidence of prior right craniotomy, right parietal/frontal lobes concave) Eyes: normal inspection, PERRL, sclerae normal ENT: normal ENT inspection, pharynx normal Neck: supple, no adenopathy, no JVD, trachea midline Respiratory/Chest: chest non-tender, lungs clear, no respiratory distress, no accessory muscle use, + decreased breath sounds (bases) Cardiovascular: regular rate, rhythm, no edema, no gallop, no JVD, no murmur, normal peripheral pulses Abdomen/GI: normal bowel sounds, non tender (could not elicit any pain in RUQ, negative Padron sign), soft, no organomegaly, no pulsatile mass Back: normal inspection, no CVA tenderness, no muscle spasm, normal range of motion Extremities/Musculoskelatal: normal inspection, no calf tenderness, normal capillary refill, no pedal edema, non-tender, pelvis stable Neurologic/Psych: alert, normal mood/affect, + motor weakness (left sided paralysis, left hand contracture), + pertinent finding (cannot follow commands) Skin: normal color, warm/dry, no rash Lymphatic: no adenopathy Diagnostics Laboratory Results Results Past 24 Hours Test 07/18/16 13:40 07/18/16 14:18 07/18/16 15:30 Range/Units White Blood Count 10.89 4.8-10.8 K/uL Red Blood Count 5.17 4.2-5.4 M/uL Hemoglobin 16.3 12.0-16.0 g/dL Hematocrit 48.3 37-47 % Mean Corpuscular Volume 93.4 80-100 fL Mean Corpuscular Hemoglobin 31.5 25-34 pg Mean Corpuscular Hemoglobin Concent 33.7 32-36 g/dl Platelet Count 181 130-400 K/uL Mean Platelet Volume 10.4 7.4-10.4 fL Neutrophils (%) (Auto) 89.0 % Lymphocytes (%) (Auto) 4.4 % Monocytes (%) (Auto) 6.4 % Eosinophils (%) (Auto) 0.0 % Basophils (%) (Auto) 0.0 % Neutrophils # (Auto) 9.69 1.4-6.5 K/uL Lymphocytes # (Auto) 0.48 1.2-3.4 K/uL Monocytes # (Auto) 0.70 0.11-0.59 K/uL Eosinophils # (Auto) 0.00 0-0.5 K/uL Basophils # (Auto) 0.00 0-0.2 K/uL RDW Standard Deviation 44.9 36.4-46.3 fL RDW Coefficient of Variation 13.1 11.5-14.5 % Immature Granulocyte % (Auto) 0.2 % Immature Granulocyte # (Auto) 0.02 0.00-0.02 K/uL Prothrombin Time 12.0 9.0-12.0 SECONDS Prothromb Time International Ratio 1.1 0.9-1.1 Activated Partial Thromboplast Time 23.8 21.0-31.0 SECONDS Partial Thromboplastin Ratio 0.9 Sodium Level 145 136-145 mmol/L Potassium Level 2.9 3.5-5.1 mmol/L Chloride Level 104 98-107 mmol/L Carbon Dioxide Level 33 21-32 mmol/L Anion Gap 8.0 3-11 mmol/L Blood Urea Nitrogen 10 7-18 mg/dl Creatinine 0.74 0.60-1.20 mg/dl Est Creatinine Clear Calc Drug Dose 70.9 ml/min Estimated GFR () 100.6 Estimated GFR (Non- 86.8 BUN/Creatinine Ratio 14.1 10-20 Random Glucose 157 70-99 mg/dl Calcium Level 9.4 8.5-10.1 mg/dl Total Bilirubin 2.1 0.2-1 mg/dl Aspartate Amino Transf (AST/SGOT) 196 15-37 U/L Alanine Aminotransferase (ALT/SGPT) 144 12-78 U/L Alkaline Phosphatase 131 45-117 U/L Troponin I 0.016 0-0.045 ng/ml Total Protein 8.0 6.4-8.2 gm/dl Albumin 3.5 3.4-5.0 gm/dl Globulin 4.5 2.5-4.0 gm/dl Albumin/Globulin Ratio 0.8 0.9-2 Lipase 47 73-393 U/L Chemistry Specimen Hemolysis Lactic Acid Level 2.5 0.4-2.0 mmol/L Urine Color DK YELLOW Urine Appearance CLOUDY CLEAR Urine pH 6.0 4.5-7.5 Urine Specific [place] 1.023 1.000-1.030 Urine Protein TRACE NEG Urine Glucose (UA) NEG NEG Urine Ketones 1+ NEG Urine Occult Blood NEG NEG Urine Nitrite POS NEG Urine Bilirubin NEG NEG Urine Urobilinogen NEG NEG Urine Leukocyte Esterase TRACE NEG Urine WBC (Auto) 1-5 0-5 /hpf Urine RBC (Auto) 0-4 0-4 /hpf Urine Hyaline Casts (Auto) 0 0-5 /lpf Urine Epithelial Cells (Auto) 0-5 0-5 /lpf Urine Bacteria (Auto) 4+ NEG Microbiology Results 07/18/16 Urine Culture, Received Pending Diagnostic Radiology ABDOMEN AND PELVIS CT WITH IV CONTRAST CT DOSE: 509.26 mGy.cm HISTORY: Generalized abdominal pain. TECHNIQUE: Multiaxial CT images of the abdomen and pelvis were performed following the use of intravenous contrast. COMPARISON STUDY: None. FINDINGS: Bibasilar linear densities consistent with subsegmental atelectasis. No pneumoperitoneum. No pneumatosis. No suspicious lytic or blastic osseous lesions. There are 3 hypodense lesions within the liver. Dominant lesion within the right hepatic lobe measures 1.4 cm. These are incompletely characterized on this single phase study but favor cysts or hemangiomas. The spleen, pancreas, adrenal glands are unremarkable. The kidneys enhance normally. Bilateral peripelvic renal cysts. The bladder is unremarkable. The uterus and bilateral adnexa are within normal limits. No bowel wall thickening or obstruction. A few colonic diverticula. Normal appendix. No retroperitoneal lymphadenopathy. Distended gallbladder with an enhancing wall and pericholecystic fluid/inflammatory change. This is consistent with acute cholecystitis. Normal caliber common bile duct. IMPRESSION: 1. Distended gallbladder with an enhancing wall and pericholecystic fluid/inflammatory change. This is consistent with acute cholecystitis. 2. Normal caliber common bile duct. 3. No bowel wall thickening or obstruction. 4. Additional findings as described above. Impression Assessment and Plan IMP cholelithiasis, possible cholecystitis, CBD stones Plan: GI consult, possible ERCP, U/S study for gallbladder, repeat labs in AM will F/U Thanks, Advanced Directives Existing Living Will: Yes Existing Power of Funeral Home Associate: Yes VTE Prophylaxis VTE Risk Assessment Done? Y/N: Yes Risk Level: High Given or contraindicated: Unfractionated heparin SQ
[2016-07-18] MEDS: HEPARIN SOD 5000 UNIT/0.5 ML CARP SQ SCH (22:39)
[2016-07-18] MEDS: CLONAZEPAM 0.5 MG TAB PO SCH (22:40)
[2016-07-18] MEDS: QUETIAPINE FUMARATE 25 MG TAB PO SCH (22:41)
[2016-07-19] MEDS: PIPERACILL/TAZOBAC IV 3.375 GM in DEXTROSE 5% 100ML 100 ML IV SCH ×4 (00:57→23:52)
[2016-07-19 01:25] VITALS: BP 104/67; PULSE 61; TEMP 36.5; O2SAT 98
[2016-07-19] MEDS: HEPARIN SOD 5000 UNIT/0.5 ML CARP SQ SCH ×3 (05:52→22:00)
[2016-07-19 07:19] VITALS: BP 126/76; PULSE 57; TEMP 36.9; O2SAT 99
[2016-07-19 08:27] LABS: BASO % 0.2 %; BASO ABS # 0.01 K/uL (0-0.2); COMPLETE YES; HEMATOCRIT 43.2 % (37-47); LYMPH % 24.7 %; MEAN CELL VOLUME 95.2 fL (80-100); MEAN CORPUSCULAR HEMOGLOBIN 30.8 pg (25-34); MEAN CORPUSCULAR HGB CONC 32.4 g/dl (32-36); MEAN PLATELET VOLUME 10.9 fL (7.4-10.4); MONO % 11.4 %; NEUT % 63.7 %; PLATELET COUNT 101 K/uL (130-400); RED BLOOD COUNT 4.54 M/uL (4.2-5.4); WHITE BLOOD COUNT 4.46 K/uL (4.8-10.8)
[2016-07-19 08:35] LABS: ALKALINE PHOSPHATASE 97 U/L (45-117); ALT/SGPT 190 U/L (12-78); AST/SGOT 142 U/L (15-37); BLOOD UREA NITROGEN 9 mg/dl (7-18); BUN/CREATININE RATIO 20.2 (10-20); CARBON DIOXIDE 30 mmol/L (21-32); CHLORIDE 117 mmol/L (98-107); CREATININE 0.42 mg/dl (0.60-1.20); GLUCOSE 73 mg/dl (70-99); MAGNESIUM 1.8 mg/dl (1.8-2.4); SODIUM 149 mmol/L (136-145)
--- NOTE | 2016-07-19 08:40 | Hospitalist Progress Note ---
Hospitalist Progress Note Date of Service Jul 19, 2016. Subjective Pt evaluation today including: conversation w/ patient, conversation w/ family Pain: Controlled PO Intake: NPO The patient was seen and examined this morning. Pt's son, Jr is at bedside. The patient is nonverbal but appears comfortable as she is sleeping currently. Son reports that she hasn't had a good nights sleep for 2 days. She provides no history, but does more her right hand over the RUQ when I perform an abdominal exam. Otherwise she remains asleep. Additional Comments: ROS unobtainable due to nonverbal state. Objective Vital Signs Date Time Temp Pulse Resp B/P Pulse Ox O2 Delivery O2 Flow Rate FiO2 07/19/16 07:19 36.9 57 16 126/76 99 Room Air 07/19/16 01:25 36.5 61 16 104/67 98 Room Air 07/19/16 00:40 Room Air 07/18/16 18:16 36.5 61 18 125/77 98 Room Air 07/18/16 18:10 Room Air 07/18/16 17:19 66 20 143/77 96 07/18/16 16:37 Room Air 07/18/16 15:28 78 07/18/16 15:09 83 140/91 95 Room Air 07/18/16 14:15 72 20 114/68 98 Room Air 07/18/16 13:05 76 07/18/16 13:03 37.2 73 30 168/92 94 Room Air Physical Exam General Appearance: WD/WN, no apparent distress Eyes: PERRL, EOMI ENT: hearing grossly normal Neck: supple, no JVD Respiratory/Chest: lungs clear, normal breath sounds, no respiratory distress, no accessory muscle use Cardiovascular: regular rate, rhythm, no murmur Abdomen: soft, no organomegaly, + pertinent finding (hypoactive bowel sounds, nontender except does more her right hand over her abdomen to keep me from pressing on it) Extremities: non-tender, no pedal edema Neurologic/Psychiatric: + pertinent finding (Left sided hemiplegia. ) Skin: normal color, warm/dry Laboratory Results Last 24 Hours Test 07/18/16 13:40 07/18/16 14:18 07/18/16 15:30 07/19/16 07:30 White Blood Count 10.89 K/uL 4.46 K/uL Red Blood Count 5.17 M/uL 4.54 M/uL Hemoglobin 16.3 g/dL 14.0 g/dL Hematocrit 48.3 % 43.2 % Mean Corpuscular Volume 93.4 fL 95.2 fL Mean Corpuscular Hemoglobin 31.5 pg 30.8 pg Mean Corpuscular Hemoglobin Concent 33.7 g/dl 32.4 g/dl Platelet Count 181 K/uL 101 K/uL Mean Platelet Volume 10.4 fL 10.9 fL Neutrophils (%) (Auto) 89.0 % 63.7 % Lymphocytes (%) (Auto) 4.4 % 24.7 % Monocytes (%) (Auto) 6.4 % 11.4 % Eosinophils (%) (Auto) 0.0 % 0.0 % Basophils (%) (Auto) 0.0 % 0.2 % Neutrophils # (Auto) 9.69 K/uL 2.84 K/uL Lymphocytes # (Auto) 0.48 K/uL 1.10 K/uL Monocytes # (Auto) 0.70 K/uL 0.51 K/uL Eosinophils # (Auto) 0.00 K/uL 0.00 K/uL Basophils # (Auto) 0.00 K/uL 0.01 K/uL RDW Standard Deviation 44.9 fL 46.5 fL RDW Coefficient of Variation 13.1 % 13.6 % Immature Granulocyte % (Auto) 0.2 % 0.0 % Immature Granulocyte # (Auto) 0.02 K/uL 0.00 K/uL Prothrombin Time 12.0 SECONDS Prothromb Time International Ratio 1.1 Activated Partial Thromboplast Time 23.8 SECONDS Partial Thromboplastin Ratio 0.9 Sodium Level 145 mmol/L 149 mmol/L Potassium Level 2.9 mmol/L Chloride Level 104 mmol/L 117 mmol/L Carbon Dioxide Level 33 mmol/L 30 mmol/L Anion Gap 8.0 mmol/L 2.0 mmol/L Blood Urea Nitrogen 10 mg/dl 9 mg/dl Creatinine 0.74 mg/dl 0.42 mg/dl Est Creatinine Clear Calc Drug Dose 70.9 ml/min 125.0 ml/min Estimated GFR () 100.6 127.3 Estimated GFR (Non- 86.8 109.9 BUN/Creatinine Ratio 14.1 20.2 Random Glucose 157 mg/dl 73 mg/dl Calcium Level 9.4 mg/dl Total Bilirubin 2.1 mg/dl 1.8 mg/dl Aspartate Amino Transf (AST/SGOT) 196 U/L 142 U/L Alanine Aminotransferase (ALT/SGPT) 144 U/L 190 U/L Alkaline Phosphatase 131 U/L 97 U/L Troponin I 0.016 ng/ml Total Protein 8.0 gm/dl 5.6 gm/dl Albumin 3.5 gm/dl 2.3 gm/dl Globulin 4.5 gm/dl Albumin/Globulin Ratio 0.8 Lipase 47 U/L Chemistry Specimen Hemolysis Lactic Acid Level 2.5 mmol/L Urine Color DK YELLOW Urine Appearance CLOUDY Urine pH 6.0 Urine Specific [place] 1.023 Urine Protein TRACE Urine Glucose (UA) NEG Urine Ketones 1+ Urine Occult Blood NEG Urine Nitrite POS Urine Bilirubin NEG Urine Urobilinogen NEG Urine Leukocyte Esterase TRACE Urine WBC (Auto) 1-5 /hpf Urine RBC (Auto) 0-4 /hpf Urine Hyaline Casts (Auto) 0 /lpf Urine Epithelial Cells (Auto) 0-5 /lpf Urine Bacteria (Auto) 4+ Magnesium Level 1.8 mg/dl Assessment and Plan 60 yo female with history of right sided stroke, HTN, hyperlipidemia, left sided paralysis and non-verbal from stroke, here with acute cholecystitis Acute cholecystitis: IV fluids, Zosyn IV, consult general surgery for definitive cholecystectomy - MRCP not obtainable due to not knowing where the clips were placed. Per son, Dr. Devine at [facility] did the surgery about 10 years ago. Will attempt to call [facility] today and see if they have records of type of clip placed. - Trending LFT and bili mildly elevated - Spoke with Dr. Blackmon and plan for ultrasound of the LUQ this morning. No surgery today so will order clears (nectar thick), HOLD clears until after U/S - pain control with oxycodone, appears comfortable but cannot verbalized - Zofran PRN - Follow LFTs - Continue on zosyn empirically Hypokalemia: - give 20mEq IV now, place 40mEq in IV fluids and run at 80cc/hr Elevated BP - likely was due to pain, does not take anything chronically - resolved with pain control h/o right sided stroke, left side paralysis: - supportive care, Anxiety: Klonopin PRN, Seroquel qHS DVT prophylaxis: heparin SC CODE STATUS: FULL , no cardioversion, no mechanical ventilation Disposition: From [facility], await GI/surg recs, return once medically stable
[2016-07-19] MEDS: POTASSIUM CHLORIDE INJ 40 MEQ in SODIUM CHLORIDE 0.9% 1000ML 1,000 ML IV SCH (08:45)
[2016-07-19 08:46] LABS: CALCIUM 7.5 mg/dl (8.5-10.1)
--- NOTE | 2016-07-19 08:47 | Clinical Documentation Query ---
ALISTAIR Mcgarry : CLINICAL DOCUMENTATION QUERY Patient is a 60 year old female admitted for evaluation and treatment of acute cholecystitis. Overnight coverage noted patient to have "thrush", not otherwise specified. She was ordered Nystatin suspension. Although implicit, the site of the infection may not be assumed by the professional tenant relations coordinator and as documented lacks the severity associated with documentation as suggested below. As appropriate, consider explicit documentation of the site of the thrush infection in your patient. Thank you. In your clinical opinion is this patient being managed for: ( ) Candidal stomatitis ( ) Other explanation of clinical findings (Please Explain) ( ) Unable to determine (Please Define) ( ) Need to Discuss ( ) Not Agree The medical record reflects the following clinical findings, treatment, and risk factors. Clinical Indicators: As above Treatment: Nystatin suspension Risk Factors: na Please clarify and document your clinical opinion in the progress notes and discharge summary. Terms such as "probable", "suspected", "likely", "questionable", "possible", or "still to be ruled out" are acceptable. IF IN AGREEMENT, YOU MUST DOCUMENT ABOVE DIAGNOSTIC STATEMENT IN DAILY PROGRESS NOTES AND DISCHARGE SUMMARY. This document is not part of the patient's record. Thank You, Brent Miranda, GIA [phone]
--- NOTE | 2016-07-19 08:49 | Clinical Documentation Query ---
JOSEFINA Beltrán : CLINICAL DOCUMENTATION QUERY Patient is a 60 year old female admitted for evaluation and treatment of acute cholecystitis. Overnight coverage noted patient to have "thrush", not otherwise specified. She was ordered Nystatin suspension. Although implicit, the site of the infection may not be assumed by the professional cinder crane operator and as documented lacks the severity associated with documentation as suggested below. As appropriate, consider explicit documentation of the site of the thrush infection in your patient. Thank you. In your clinical opinion is this patient being managed for: ( X) Candidal stomatitis ( ) Other explanation of clinical findings (Please Explain) ( ) Unable to determine (Please Define) ( ) Need to Discuss ( ) Not Agree The medical record reflects the following clinical findings, treatment, and risk factors. Clinical Indicators: As above Treatment: Nystatin suspension Risk Factors: na Please clarify and document your clinical opinion in the progress notes and discharge summary. Terms such as "probable", "suspected", "likely", "questionable", "possible", or "still to be ruled out" are acceptable. IF IN AGREEMENT, YOU MUST DOCUMENT ABOVE DIAGNOSTIC STATEMENT IN DAILY PROGRESS NOTES AND DISCHARGE SUMMARY. This document is not part of the patient's record. Thank You, Brent Miranda, RN [phone]
--- NOTE | 2016-07-19 09:05 | Surgery Progress Note ---
Surgery Progress Note Date of Service Jul 19, 2016. Subjective + feeling well pt is doing better, no nausea, no vomiting, pt's son is bedside, Objective Vital Signs: Date Time Temp Pulse Resp B/P Pulse Ox O2 Delivery O2 Flow Rate FiO2 07/19/16 07:19 36.9 57 16 126/76 99 Room Air 07/19/16 01:25 36.5 61 16 104/67 98 Room Air 07/19/16 00:40 Room Air 07/18/16 18:16 36.5 61 18 125/77 98 Room Air 07/18/16 18:10 Room Air 07/18/16 17:19 66 20 143/77 96 07/18/16 16:37 Room Air 07/18/16 15:28 78 07/18/16 15:09 83 140/91 95 Room Air 07/18/16 14:15 72 20 114/68 98 Room Air 07/18/16 13:05 76 07/18/16 13:03 37.2 73 30 168/92 94 Room Air General Appearance: WD/WN Head: normocephalic Neck: supple Respiratory/Chest: chest non-tender, lungs clear Cardiovascular: regular rate, rhythm, no edema, no gallop Abdomen: normal bowel sounds, non tender, non distended, soft Extremities: normal range of motion, non-tender, normal inspection Laboratory Results: Results Past 24 Hours Test 07/18/16 13:40 07/18/16 14:18 07/18/16 15:30 07/19/16 07:30 Range/Units White Blood Count 10.89 4.46 4.8-10.8 K/uL Red Blood Count 5.17 4.54 4.2-5.4 M/uL Hemoglobin 16.3 14.0 12.0-16.0 g/dL Hematocrit 48.3 43.2 37-47 % Mean Corpuscular Volume 93.4 95.2 80-100 fL Mean Corpuscular Hemoglobin 31.5 30.8 25-34 pg Mean Corpuscular Hemoglobin Concent 33.7 32.4 32-36 g/dl Platelet Count 181 101 130-400 K/uL Mean Platelet Volume 10.4 10.9 7.4-10.4 fL Neutrophils (%) (Auto) 89.0 63.7 % Lymphocytes (%) (Auto) 4.4 24.7 % Monocytes (%) (Auto) 6.4 11.4 % Eosinophils (%) (Auto) 0.0 0.0 % Basophils (%) (Auto) 0.0 0.2 % Neutrophils # (Auto) 9.69 2.84 1.4-6.5 K/uL Lymphocytes # (Auto) 0.48 1.10 1.2-3.4 K/uL Monocytes # (Auto) 0.70 0.51 0.11-0.59 K/uL Eosinophils # (Auto) 0.00 0.00 0-0.5 K/uL Basophils # (Auto) 0.00 0.01 0-0.2 K/uL RDW Standard Deviation 44.9 46.5 36.4-46.3 fL RDW Coefficient of Variation 13.1 13.6 11.5-14.5 % Immature Granulocyte % (Auto) 0.2 0.0 % Immature Granulocyte # (Auto) 0.02 0.00 0.00-0.02 K/uL Prothrombin Time 12.0 9.0-12.0 SECONDS Prothromb Time International Ratio 1.1 0.9-1.1 Activated Partial Thromboplast Time 23.8 21.0-31.0 SECONDS Partial Thromboplastin Ratio 0.9 Sodium Level 145 149 136-145 mmol/L Potassium Level 2.9 3.5-5.1 mmol/L Chloride Level 104 117 98-107 mmol/L Carbon Dioxide Level 33 30 21-32 mmol/L Anion Gap 8.0 2.0 3-11 mmol/L Blood Urea Nitrogen 10 9 7-18 mg/dl Creatinine 0.74 0.42 0.60-1.20 mg/dl Est Creatinine Clear Calc Drug Dose 70.9 125.0 ml/min Estimated GFR () 100.6 127.3 Estimated GFR (Non- 86.8 109.9 BUN/Creatinine Ratio 14.1 20.2 10-20 Random Glucose 157 73 70-99 mg/dl Calcium Level 9.4 7.5 8.5-10.1 mg/dl Total Bilirubin 2.1 1.8 0.2-1 mg/dl Aspartate Amino Transf (AST/SGOT) 196 142 15-37 U/L Alanine Aminotransferase (ALT/SGPT) 144 190 12-78 U/L Alkaline Phosphatase 131 97 45-117 U/L Troponin I 0.016 0-0.045 ng/ml Total Protein 8.0 5.6 6.4-8.2 gm/dl Albumin 3.5 2.3 3.4-5.0 gm/dl Globulin 4.5 2.5-4.0 gm/dl Albumin/Globulin Ratio 0.8 0.9-2 Lipase 47 73-393 U/L Chemistry Specimen Hemolysis Lactic Acid Level 2.5 0.4-2.0 mmol/L Urine Color DK YELLOW Urine Appearance CLOUDY CLEAR Urine pH 6.0 4.5-7.5 Urine Specific [place] 1.023 1.000-1.030 Urine Protein TRACE NEG Urine Glucose (UA) NEG NEG Urine Ketones 1+ NEG Urine Occult Blood NEG NEG Urine Nitrite POS NEG Urine Bilirubin NEG NEG Urine Urobilinogen NEG NEG Urine Leukocyte Esterase TRACE NEG Urine WBC (Auto) 1-5 0-5 /hpf Urine RBC (Auto) 0-4 0-4 /hpf Urine Hyaline Casts (Auto) 0 0-5 /lpf Urine Epithelial Cells (Auto) 0-5 0-5 /lpf Urine Bacteria (Auto) 4+ NEG Magnesium Level 1.8 1.8-2.4 mg/dl Direct Bilirubin 0-0.2 mg/dl Test 07/19/16 08:38 Range/Units Microbiology Results 07/18/16 Urine Culture, Received Pending Assessment & Plan IMP cholecystitis, U/S study today, base on u/s study, then decide to do lap maxine or not, D/W benefits, risks and alternatives of laparoscopic cholecystectomy, the risks- infection, bleeding, injury CBD, bowel, DE, DVT, stroke, , pt's son understood, I answered all questions, will F/U U/s study,
[2016-07-19] MEDS: CLONAZEPAM 0.5 MG TAB PO SCH ×2 (10:04→21:46)
[2016-07-19] MEDS: HYOSCYAMINE SULFATE 0.125 MG SL TAB PO SCH ×4 (10:04→21:48)
[2016-07-19] MEDS: NYSTATIN SUSP 500,000 U/5 ML UDC PO SCH ×4 (10:05→21:48)
[2016-07-19 11:12] LABS: POTASSIUM 4.6 mmol/L (3.5-5.1)
--- NOTE | 2016-07-19 11:18 | DIAGNOSTIC IMAGING REPORT ---
ABDOMINAL ULTRASOUND, RIGHT UPPER QUADRANT HISTORY: Cholecystitis. COMPARISON: CT of the abdomen and pelvis July 18, 2016. FINDINGS: There is no biliary ductal dilatation. Moderate gallbladder wall thickening is noted. The wall measures 8 mm in thickness. There is extensive echogenic material within the gallbladder which may reflect sludge and stones. The gallbladder is mildly distended. A small amount of pericholecystic fluid is noted. The pancreatic body is normal. The head and tail are obscured. There is no right hydronephrosis. IMPRESSION: 1. Extensive material within the gallbladder which may reflect sludge and stones. Moderate gallbladder wall thickening with trace pericholecystic fluid. The findings favor acute cholecystitis. A hepatobiliary scan could be obtained as indicated. 2. No biliary ductal dilatation. Electronically signed by: Jose E Estes M.D. 07/19/2016 11:16 AM Dictated Date/Time: 07/19/2016 11:14 AM
[2016-07-19] MEDS: PANTOprazole INJ 40 MG in SYRINGE 0 ML IV SCH (11:20)
--- NOTE | 2016-07-19 11:29 | CONSULTATION REPORT ---
DATE OF CONSULTATION: 07/19/2016 DATE OF CONSULTATION: 07/19/2016. REFERRING PHYSICIAN: Dr. Antwon Devine. CONSULTING PHYSICIAN: Dr. Deya Snell. REASON FOR CONSULTATION: Acute cholecystitis. HISTORY OF PRESENT ILLNESS: Ms. Lucas is a 60-year-old female with past medical histories including right-sided stroke back in 2007 which required craniotomy and this left her with left-sided paralysis and nonverbal status. She is a [facility] resident. She was sent from there to the ED for symptoms of vomiting and not looking well in general. She seems to be eating less and less and appears to be uncomfortable. We could not get information from her due to her nonverbal status. Information has been obtained from her son Jr and also her admission H&P. When she was evaluated, she was noted to be afebrile and hemodynamically stable; however, her labs showed mild leukocytosis with WBC over 10.8, H/H 16/48. No coagulopathy. She is noted to have hypokalemia with potassium level 2.9 yesterday, today is pending. BUN and creatinine normal of 10/0.74. Her LFTs are elevated, previously normal and baseline. T-bili 2.1, AST 196, ALT 144, alkaline phosphatase 131, lipase is 47. Imaging study showed a chest x-ray showing no acute processes. She had an abdominal CAT scan that showed distended gallbladder with enhancing wall and pericholecystic fluid and inflammatory changes consistent with acute cholecystitis. There is a normal caliber CBD, no bowel wall thickening or obstruction. There are also 3 hypodensity lesions within the liver, dominant one in the right hepatic lobe measuring 1.4 cm favoring cysts or hemangiomas. Spleen, pancreas, adrenal glands are all unremarkable. PAST MEDICAL HISTORY: As noted in HPI above. Also hyperlipidemia, hypertension. PAST SURGICAL HISTORY: Craniotomy following her stroke. SOCIAL HISTORY: She lives as a [facility] resident. No smoking, no tobacco or drug abuses. FAMILY HISTORY: Unrelated to current admission. MEDICATIONS: Current medication list reviewed in her EMR. ALLERGIES: MORPHINE AND SULFA ANTIBIOTICS. REVIEW OF SYSTEMS: Please see HPI above. Unobtainable ROS due to patient's nonverbal state. PHYSICAL EXAMINATION: VITAL SIGNS: Temperature 36.9, pulse 57, respiration rate 16, blood pressure 126/74, O2 sat 99% on room air. GENERAL: Ms. Lucas is a 60-year-old female who appears to be comfortably resting and sleeping in her bed, no distress noted. RESPIRATORY: Diminished overall lung sounds. No respiratory distress noted. CARDIOVASCULAR: Heart sounds RRR. S1, S2 present. No murmur or gallops noted. GASTROINTESTINAL: Abdomen soft, hypoactive bowel sounds. The patient does not display any signs and symptoms of being in pain or uncomfortable when abdomen is palpated. LYMPHATIC: No edema noted on extremities. NEUROLOGIC: The patient does not open eyes when name called. She is generally nonverbal. Her son, Jr, is at the bedside states that his mother's basement status is such that she is nonverbal and does not generally follow much commands. DIAGNOSTIC STUDIES: The patient's most recent imaging studies and lab results have all been reviewed in her EMR. ASSESSMENT AND PLAN: Ms. Lucas is a 60-year-old female currently admitted for acute cholecystitis with LFT elevation. Unclear if she has any choledocholithiasis as well. Unfortunately, she did have a craniotomy with aneurysm clip placement and she is unable to get an MRCP; however, an abdominal ultrasound has been ordered. We will review this. Discussed the case with Dr. Deya Snell who would recommend an EUS and ERCP if abdominal ultrasound not clear for CBD stone. We will also ask anesthesia to evaluate patient for the risks of anesthesia used during EUS and ERCP given that she may be a higher risk patient to undergo this procedure. Currently surgery is also following her. No plans for laparoscopic cholecystectomy as of right now until ultrasound is resulted. The above assessment has been reviewed with Dr. Snell who is in agreement with the stated plan. I saw and evaluated the patient. She presented with abdominal pain ongoing for severa days thought related to acute cholecystitis. Iniitially her labs were notable for elevation of ast, alt and T bilirubin with negative imaging of the CBD. Given her history we could offer EUS with possible ERCP (if positive). I have discussed the plan with the patient and her son (risks are bleeding, infection, perforation, pain, pancreatitis, and failed biliary cannulation). BERNA
--- NOTE | 2016-07-19 13:37 | Clinical Documentation Query ---
RAQUEL Gusman : CLINICAL DOCUMENTATION QUERY Patient is a 60 year old female admitted for evaluation and treatment of acute cholecystitis. Overnight coverage noted patient to have "thrush", not otherwise specified. She was ordered Nystatin suspension. Although implicit, the site of the infection may not be assumed by the professional flux mixer and as documented lacks the severity associated with documentation as suggested below. As appropriate, consider explicit documentation of the site of the thrush infection in your patient. Thank you. In your clinical opinion is this patient being managed for: ( ) Candidal stomatitis ( ) Other explanation of clinical findings (Please Explain) ( ) Unable to determine (Please Define) ( ) Need to Discuss ( ) Not Agree The medical record reflects the following clinical findings, treatment, and risk factors. Clinical Indicators: As above Treatment: Nystatin suspension Risk Factors: na Please clarify and document your clinical opinion in the progress notes and discharge summary. Terms such as "probable", "suspected", "likely", "questionable", "possible", or "still to be ruled out" are acceptable. IF IN AGREEMENT, YOU MUST DOCUMENT ABOVE DIAGNOSTIC STATEMENT IN DAILY PROGRESS NOTES AND DISCHARGE SUMMARY. This document is not part of the patient's record. Thank You, Brent Miranda, RN [phone]
[2016-07-19 15:24] VITALS: BP 124/66; PULSE 53; TEMP 36.7; O2SAT 97
--- NOTE | 2016-07-19 15:33 | Anesthesiology Progress Note ---
Anesthesia Progress Note Date of Service Jul 19, 2016. Progress Notes This is a 60 y/o w female w/acute cholecystitis for an ERCP/EUS tomorrow.PMHx is sig. 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 is non-verbal, has left-sided paralysis and is non-verbal.Pt also has HTN,Hyperlipidemia, thrombocytopenia,GERD and hypernatremia.Discussed anesthesia w/son,Jr, risks vs benefits,all questions answered.Informed consent obtained.
[2016-07-19] MEDS: SODIUM CHLOR 0.45% + 20MEQ KCL 1,000 ML IV SCH (16:53)
[2016-07-19] MEDS: OXYCODONE HCL IR 5 MG TAB (IMMEDIATE RELEASE) PO PRN (17:09)
[2016-07-19] MEDS: QUETIAPINE FUMARATE 25 MG TAB PO SCH (21:47)
[2016-07-20] VITALS (7 sets, daily range): BP systolic 93–134; BP diastolic 55–85; PULSE 45–60; TEMP 36.7–36.9; O2SAT 90–97
[2016-07-20] MEDS: HEPARIN SOD 5000 UNIT/0.5 ML CARP SQ SCH ×3 (05:21→22:30)
[2016-07-20] MEDS: SODIUM CHLOR 0.45% + 20MEQ KCL 1,000 ML IV SCH ×2 (05:21→22:20)
[2016-07-20] MEDS ORDERED: INDOMETHACIN 50 MG SUPP PR SCH (07:00)
[2016-07-20 07:28] LABS: BUN/CREATININE RATIO 19.4 (10-20); CALCIUM 8.2 mg/dl (8.5-10.1); CREATININE 0.49 mg/dl (0.60-1.20); MAGNESIUM 2.3 mg/dl (1.8-2.4); POTASSIUM 3.5 mmol/L (3.5-5.1)
[2016-07-20] MEDS: PIPERACILL/TAZOBAC IV 3.375 GM in DEXTROSE 5% 100ML 100 ML IV SCH ×2 (08:24→16:31)
[2016-07-20] MEDS: CLONAZEPAM 0.5 MG TAB PO SCH ×2 (08:26→22:20)
[2016-07-20] MEDS: NYSTATIN SUSP 500,000 U/5 ML UDC PO SCH ×4 (08:26→22:20)
[2016-07-20] MEDS: HYOSCYAMINE SULFATE 0.125 MG SL TAB PO SCH ×4 (08:26→22:20)
--- NOTE | 2016-07-20 09:08 | Surgery Progress Note ---
Surgery Progress Note Date of Service Jul 20, 2016. Subjective Post OP Day: HD # 2 patient nonverbal due to stroke Objective Vital Signs: Date Time Temp Pulse Resp B/P Pulse Ox O2 Delivery O2 Flow Rate FiO2 07/20/16 08:00 Room Air 07/20/16 07:58 36.7 60 18 126/71 90 Room Air 07/20/16 06:42 50 111/65 94 Room Air 07/20/16 05:23 48 116/65 97 Room Air 07/20/16 00:52 53 07/20/16 00:10 36.8 45 18 93/55 96 Room Air 07/19/16 20:00 Room Air 07/19/16 16:00 Room Air 07/19/16 15:24 36.7 53 18 124/66 97 Room Air General Appearance: WD/WN, no apparent distress Head: normocephalic, atraumatic Respiratory/Chest: no respiratory distress, no accessory muscle use Cardiovascular: regular rate, rhythm Abdomen: non tender, non distended, soft Laboratory Results: Results Past 24 Hours Test 07/19/16 09:40 07/20/16 06:23 Range/Units Potassium Level 4.6 3.5 3.5-5.1 mmol/L Direct Bilirubin 1.1 0.4 0-0.2 mg/dl Sodium Level 147 136-145 mmol/L Chloride Level 113 98-107 mmol/L Carbon Dioxide Level 29 21-32 mmol/L Anion Gap 5.0 3-11 mmol/L Blood Urea Nitrogen 9 7-18 mg/dl Creatinine 0.49 0.60-1.20 mg/dl Est Creatinine Clear Calc Drug Dose 107.1 ml/min Estimated GFR () 121.0 Estimated GFR (Non- 104.4 BUN/Creatinine Ratio 19.4 10-20 Random Glucose 63 70-99 mg/dl Calcium Level 8.2 8.5-10.1 mg/dl Magnesium Level 2.3 1.8-2.4 mg/dl Total Bilirubin 1.1 0.2-1 mg/dl Aspartate Amino Transf (AST/SGOT) 96 15-37 U/L Alanine Aminotransferase (ALT/SGPT) 183 12-78 U/L Alkaline Phosphatase 111 45-117 U/L Total Protein 6.3 6.4-8.2 gm/dl Albumin 2.6 3.4-5.0 gm/dl Assessment & Plan Acute Cholecystitis with Cholelithiasis, gallbladder wall thickening, and pericholecystic fluid -vitals stable -Total bili elevated but decreased to 1.1 today, direct bili 0.4 - LFTs improving: AST- 96, ALT- 183, Alk Phos- 111 Plan: Patient is scheduled for ERCP today at [address] Snell Continue NPO status for ERCP Possible plan for laparoscopic cholecystectomy tomorrow by Dr. Blackmon. Repeat labs in am Continue current management established by medicine service Dr. Blackmon has seen and examined patient, agrees with assessment and plan.
[2016-07-20] MEDS: POTASSIUM CHLR 10 MEQ / WTR 10 MEQ in PREMIXED WATER 100 ML IV SCH ×2 (09:56→11:24)
[2016-07-20] MEDS: OXYCODONE HCL IR 5 MG TAB (IMMEDIATE RELEASE) PO PRN ×3 (10:30→18:39)
--- NOTE | 2016-07-20 10:47 | Hospitalist Progress Note ---
Hospitalist Progress Note Date of Service Jul 20, 2016. Subjective Pain: RUQ abd PO Intake: NPO Voiding: no voiding problems The patient was seen and examined this morning. Pt is nonverbal but is communicating by shaking her head yes or no. When I ask if she is in pain she nods her head yes and is holding her abdomen in the RUQ. She slightly pushes my stethoscope away when I am auscultating there. She does grimace with palpation. She nods yes that her mouth is dry. She shakes her head no to shortness of breath, chest pain, fever, chills, sweats. Objective Vital Signs Date Time Temp Pulse Resp B/P Pulse Ox O2 Delivery O2 Flow Rate FiO2 07/20/16 08:00 Room Air 07/20/16 07:58 36.7 60 18 126/71 90 Room Air 07/20/16 06:42 50 111/65 94 Room Air 07/20/16 05:23 48 116/65 97 Room Air 07/20/16 00:52 53 07/20/16 00:10 36.8 45 18 93/55 96 Room Air 07/19/16 20:00 Room Air 07/19/16 16:00 Room Air 07/19/16 15:24 36.7 53 18 124/66 97 Room Air Physical Exam General Appearance: WD/WN, + mild distress (facial grimacing), + pertinent finding (S/p right sided craniotomy s/p deformity from bone removal) Eyes: PERRL, EOMI ENT: hearing grossly normal, pharynx normal Neck: supple, no JVD Respiratory/Chest: lungs clear, no respiratory distress, no accessory muscle use Cardiovascular: regular rate, rhythm, no murmur Abdomen: normal bowel sounds, soft, + guarding, + tenderness (with light palpation in the RUQ) Extremities: non-tender, no pedal edema, no calf tenderness Neurologic/Psychiatric: alert, + pertinent finding (nonverbal, unable to test orientation, follows commands, communicates with nodding head yes or no, left sided hemipalegia) Skin: normal color, warm/dry Laboratory Results Last 24 Hours Test 07/20/16 06:23 Sodium Level 147 mmol/L Potassium Level 3.5 mmol/L Chloride Level 113 mmol/L Carbon Dioxide Level 29 mmol/L Anion Gap 5.0 mmol/L Blood Urea Nitrogen 9 mg/dl Creatinine 0.49 mg/dl Est Creatinine Clear Calc Drug Dose 107.1 ml/min Estimated GFR () 121.0 Estimated GFR (Non- 104.4 BUN/Creatinine Ratio 19.4 Random Glucose 63 mg/dl Calcium Level 8.2 mg/dl Magnesium Level 2.3 mg/dl Total Bilirubin 1.1 mg/dl Direct Bilirubin 0.4 mg/dl Aspartate Amino Transf (AST/SGOT) 96 U/L Alanine Aminotransferase (ALT/SGPT) 183 U/L Alkaline Phosphatase 111 U/L Total Protein 6.3 gm/dl Albumin 2.6 gm/dl Assessment and Plan 60 yo female with history of right sided stroke, HTN, hyperlipidemia, left sided paralysis and non-verbal from stroke, here with acute cholecystitis Acute cholecystitis: IV fluids, Zosyn IV, consult general surgery for definitive cholecystectomy - MRCP not obtainable due to not knowing where the clips were placed. Per son, Dr. Devine at [facility] did the surgery about 10 years ago. - Continue on zosyn empirically, WBC trending downward, afebrile. - ERCP was initially ordered for today but was cancelled per GI and surg as LFTs are trending downward, continue pain control, antibiotics and supportive care - LUQ obtained IMPRESSION: 1. Extensive material within the gallbladder which may reflect sludge and stones. Moderate gallbladder wall thickening with trace pericholecystic fluid. The findings favor acute cholecystitis. A hepatobiliary scan could be obtained as indicated. 2. No biliary ductal dilatation. - Allowed to have clears (nectar thick) - pain control with oxycodone, appears comfortable but cannot verbalized - Zofran PRN - Follow LFTs UTI growing klebsiella pneumonia - lema sensitive - Covered with zosyn for now Hypokalemia: - Resolved, place 40mEq in IV fluids and run at 80cc/hr Hypernatremia - Slowly trending downward, Na+ 147 today Elevated BP - likely was due to pain, does not take anything chronically - resolved with pain control h/o right sided stroke, left side paralysis: - supportive care, turn and repo Q2H prn Anxiety: Klonopin PRN, Seroquel qHS DVT prophylaxis: heparin SC CODE STATUS: FULL , no cardioversion, no mechanical ventilation Disposition: From [facility], await GI/surg recs, return once medically stable
[2016-07-20] MEDS: PANTOprazole INJ 40 MG in SYRINGE 0 ML IV SCH (11:24)
--- NOTE | 2016-07-20 12:27 | Progress Note ---
Progress Note Date of Service Jul 20, 2016. (Peggy Raymond PA-C) Progress Note GI Quick note 60yo female with acute cholecystitis and elevated LFTs. US showed no obvious choledocholithiasis. LFTs are improving today. Unable to get MRCP due to aneurysm clip. Surgery reviewed and agrees with observation for now. Will cancel EUS/ERCP since LFTs improving. May have diet today. Pt scheduled for OR tomorrow. GI will follow peripherally. Please call with questions. (Peggy Raymond PA-C)
[2016-07-20] MEDS: QUETIAPINE FUMARATE 25 MG TAB PO SCH (22:20)
[2016-07-21] VITALS (9 sets, daily range): BP systolic 119–147; BP diastolic 58–84; PULSE 46–61; TEMP 36–36.7; O2SAT 94–100
[2016-07-21] MEDS: PIPERACILL/TAZOBAC IV 3.375 GM in DEXTROSE 5% 100ML 100 ML IV SCH ×4 (00:51→23:35)
[2016-07-21] MEDS: HEPARIN SOD 5000 UNIT/0.5 ML CARP SQ SCH (05:44)
--- NOTE | 2016-07-21 07:11 | Hospitalist Progress Note ---
Hospitalist Progress Note Date of Service Jul 21, 2016. Subjective Pt evaluation today including: conversation w/ patient, conversation w/ family Pain: RUQ PO Intake: NPO Voiding: no voiding problems The patient was seen and examined this morning. Pt's son Jr is present this morning. She seems to be in mild pain per his report but was given medication this morning and seems a little better at this time. Dr. Blackmon was at bedside during my visit and plans to take her to the OR for lap maxine around noon. Family's questions were addressed. The patient's daughter is on her way here today per son. Pt denies fever, chest pain, trouble breathing by nodding no. She nods yes to question of abdominal pain in RUQ. Other ROS not obtained due to nonverbal nature. Objective Vital Signs Date Time Temp Pulse Resp B/P Pulse Ox O2 Delivery O2 Flow Rate FiO2 07/21/16 01:00 53 07/21/16 01:00 Room Air 07/20/16 22:55 36.9 48 16 134/65 94 Room Air 07/20/16 15:41 36.7 50 18 131/85 96 Nasal Cannula 07/20/16 15:40 Room Air 07/20/16 08:00 Room Air 07/20/16 07:58 36.7 60 18 126/71 90 Room Air Physical Exam Notes: General Appearance: WD/WN, + mild distress (facial grimacing at times), + pertinent finding (S/p right sided craniotomy s/p deformity from bone removal) Eyes: PERRL, EOMI ENT: hearing grossly normal, pharynx normal Neck: supple, no JVD Respiratory/Chest: lungs clear, no respiratory distress, no accessory muscle use Cardiovascular: regular rate, rhythm, no murmur Abdomen: normal bowel sounds, soft, + guarding, + tenderness (with light palpation in the RUQ) Extremities: non-tender, no pedal edema, no calf tenderness Neurologic/Psychiatric: awake and alert, + pertinent finding (nonverbal, unable to test orientation, follows commands, communicates with nodding head yes or no, left sided hemipalegia) Skin: normal color, warm/dry Laboratory Results Last 24 Hours Test 07/21/16 04:44 Assessment and Plan 60 yo female with history of right sided stroke, HTN, hyperlipidemia, left sided paralysis and non-verbal from stroke, here with acute cholecystitis Acute cholecystitis: IV fluids, Zosyn IV, consult general surgery for definitive cholecystectomy - Spoke with gen surg, Dr. Blackmon at bedside, plans for lap maxine at noon today - appreciate recs - GI on board- appreciate recs - Continue on zosyn empirically, WBC trending downward, afebrile. - LFTs are trending downward again today, follow LFTs - pain control with oxycodone - Zofran PRN - Discussion with son held at bedside regarding plan for lap maxine today, all his questions and concerns were addressed. UTI growing klebsiella pneumonia - lema sensitive - Covered with zosyn for now Hypokalemia: - Resolved, place 40mEq in IV fluids and run at 80cc/hr Hypernatremia - Slowly trending downward, Na+ 147 today Elevated BP - likely was due to pain, does not take anything chronically - resolved with pain control h/o right sided stroke, left side paralysis: - supportive care, turn and repo Q2H prn Anxiety: Klonopin PRN, Seroquel qHS DVT prophylaxis: heparin SC CODE STATUS: FULL , no cardioversion, no mechanical ventilation Disposition: From [facility], lap maxine today, likely dc in 1-2 days
[2016-07-21] MEDS: SODIUM CHLOR 0.45% + 20MEQ KCL 1,000 ML IV SCH (07:53)
[2016-07-21 08:26] LABS: HEMATOCRIT 41.8 % (37-47); MEAN CELL VOLUME 93.3 fL (80-100); MEAN CORPUSCULAR HEMOGLOBIN 31.5 pg (25-34); MEAN CORPUSCULAR HGB CONC 33.7 g/dl (32-36); PLATELET COUNT 110 K/uL (130-400); RED BLOOD COUNT 4.48 M/uL (4.2-5.4); WHITE BLOOD COUNT 3.31 K/uL (4.8-10.8)
[2016-07-21] MEDS: OXYCODONE HCL IR 5 MG TAB (IMMEDIATE RELEASE) PO PRN (08:59)
[2016-07-21] MEDS: HYOSCYAMINE SULFATE 0.125 MG SL TAB PO SCH ×4 (09:00→20:59)
[2016-07-21] MEDS: CLONAZEPAM 0.5 MG TAB PO SCH ×2 (09:00→20:59)
[2016-07-21] MEDS: NYSTATIN SUSP 500,000 U/5 ML UDC PO SCH ×4 (09:08→20:59)
[2016-07-21 09:11] LABS: BUN/CREATININE RATIO 13.6 (10-20); CALCIUM 8.7 mg/dl (8.5-10.1); CREATININE 0.42 mg/dl (0.60-1.20); POTASSIUM 4.3 mmol/L (3.5-5.1)
--- NOTE | 2016-07-21 09:31 | Surgery Progress Note ---
Surgery Progress Note Date of Service Jul 21, 2016. Subjective + feeling well F/U acute cholecystitis, pt is doing better, less abdominal pain, no nausea, no vomiting, Objective Vital Signs: Date Time Temp Pulse Resp B/P Pulse Ox O2 Delivery O2 Flow Rate FiO2 07/21/16 08:09 94 Room Air 07/21/16 07:15 36.7 46 18 119/58 94 Room Air 07/21/16 01:00 53 07/21/16 01:00 Room Air 07/20/16 22:55 36.9 48 16 134/65 94 Room Air 07/20/16 15:41 36.7 50 18 131/85 96 Nasal Cannula 07/20/16 15:40 Room Air General Appearance: no apparent distress Head: + abnormal shape Neck: supple, no JVD Respiratory/Chest: chest non-tender, lungs clear, normal breath sounds Cardiovascular: regular rate, rhythm, no edema, no gallop, no JVD, no murmur Abdomen: normal bowel sounds, non distended, soft, no organomegaly, + guarding (RUQ) Extremities: normal range of motion, non-tender, normal inspection Laboratory Results: Results Past 24 Hours Test 07/21/16 08:18 Range/Units White Blood Count 3.31 4.8-10.8 K/uL Red Blood Count 4.48 4.2-5.4 M/uL Hemoglobin 14.1 12.0-16.0 g/dL Hematocrit 41.8 37-47 % Mean Corpuscular Volume 93.3 80-100 fL Mean Corpuscular Hemoglobin 31.5 25-34 pg Mean Corpuscular Hemoglobin Concent 33.7 32-36 g/dl RDW Standard Deviation 44.7 36.4-46.3 fL RDW Coefficient of Variation 13.1 11.5-14.5 % Platelet Count 110 130-400 K/uL Mean Platelet Volume 11.0 7.4-10.4 fL Sodium Level 142 136-145 mmol/L Potassium Level 4.3 3.5-5.1 mmol/L Chloride Level 105 98-107 mmol/L Carbon Dioxide Level 29 21-32 mmol/L Anion Gap 8.0 3-11 mmol/L Blood Urea Nitrogen 6 7-18 mg/dl Creatinine 0.42 0.60-1.20 mg/dl Est Creatinine Clear Calc Drug Dose 125.0 ml/min Estimated GFR () 127.3 Estimated GFR (Non- 109.9 BUN/Creatinine Ratio 13.6 10-20 Random Glucose 63 70-99 mg/dl Calcium Level 8.7 8.5-10.1 mg/dl Magnesium Level 2.0 1.8-2.4 mg/dl Total Bilirubin 1.0 0.2-1 mg/dl Direct Bilirubin 0.4 0-0.2 mg/dl Aspartate Amino Transf (AST/SGOT) 48 15-37 U/L Alanine Aminotransferase (ALT/SGPT) 139 12-78 U/L Alkaline Phosphatase 117 45-117 U/L Total Protein 6.5 6.4-8.2 gm/dl Albumin 2.7 3.4-5.0 gm/dl Assessment & Plan IMP cholecystitis, U/S study today, base on u/s study, then decide to do lap maxine or not, I talked to pt's son about laparoscopic cholecystectomy, possible open or cholangiogram, D/W benefits, risks and alternatives of laparoscopic cholecystectomy, the risks- infection, bleeding, injury CBD, bowel, biliary leak , may need ERCP, MN, DVT, stroke, , pt's son understood, he agrees with the surgery. I answered all questions. IMP cholecystitis, U/S study today, base on u/s study, then decide to do lap maxine or not, D/W benefits, risks and alternatives of laparoscopic cholecystectomy, the risks- infection, bleeding, injury CBD, bowel, MN, DVT, stroke, , pt's son understood, I answered all questions, will F/U U/s study,
[2016-07-21] MEDS: PANTOprazole INJ 40 MG in SYRINGE 0 ML IV SCH (10:50)
[2016-07-21] MEDS ORDERED: DEXAMETHASONE SOD INJ 4 MG/ML VIAL ONE (11:08)
[2016-07-21] MEDS ORDERED: MIDAZOLAM HCL 1 MG/ML 2ML VIAL ONE (11:08)
[2016-07-21] MEDS ORDERED: NEOSTIGMINE METHYLSULFATE 5 MG/5 ML SYR ONE (11:08)
[2016-07-21] MEDS ORDERED: PROPOFOL IV EMULSION 10 MG/ML 20 ML VIAL IV ONE (11:08)
[2016-07-21] MEDS ORDERED: GLYCOPYRROLATE INJ 0.2 MG/ML VIAL ONE ×2 (11:08→14:07)
[2016-07-21] MEDS ORDERED: LIDOCAINE HCL 2% 2 ML VIAL (20MG/ML) ONE (11:08)
[2016-07-21] MEDS ORDERED: FENTANYL CITRATE INJ 50 MCG/1 ML 2 ML VIAL ONE (11:08)
[2016-07-21] MEDS ORDERED: ONDANSETRON INJ 2 MG/ML 2 ML VIAL ONE (11:08)
[2016-07-21] MEDS ORDERED: ROCURONIUM BROMIDE 10 MG/ML 5 ML VIAL ONE (11:08)
--- NOTE | 2016-07-21 12:05 | History & Physical Bridge Note ---
H&P Re-Evaluation Bridge Note: I have examined the patient, reviewed the History & Physical and in the interval since the performance of the History & Physical I have noted the following changes of clinical significance: No changes noted
[2016-07-21] MEDS ORDERED: CEFAZOLIN IV 2,000 MG/60 ML D5W IV SCH (12:15)
[2016-07-21] MEDS ORDERED: CEFAZOLIN IV 2,000 MG/60 ML D5W IV ONE (12:15)
[2016-07-21] MEDS ORDERED: LIDOCAINE HCL 1% 20 ML VIAL ONE (12:23)
[2016-07-21] MEDS ORDERED: CONRAY 60% 50 ML VIAL ONE (12:24)
[2016-07-21] MEDS ORDERED: BUPIVACAINE 0.5 % 5 MG/1 ML MPF 30ML VIAL ONE (12:24)
[2016-07-21] MEDS ORDERED: LABETALOL HCL IV 5 MG/ML 20ML IV ONE (13:13)
[2016-07-21] MEDS ORDERED: EpHEDrine SULFATE 50MG/5ML SYR ONE (13:17)
[2016-07-21] MEDS ORDERED: BACITRACIN OINT 15 GM TUBE ONE (13:47)
[2016-07-21] MEDS ORDERED: CISATRACURIUM BESYLATE IV SOLN 2 MG/ML 10 ML VIAL ONE (14:06)
--- NOTE | 2016-07-21 14:22 | [facility] Post Operative Brief Note ---
Immediate Operative Summary Operative Date Jul 21, 2016. Pre-Operative Diagnosis Acute Cholecystitis, cholelithiasis Post-Operative Diagnosis Acute Cholecystitis, Cholelithiasis Procedure(s) Performed Laparoscopic Cholecystectomy Surgeon Dr. Blackmon Gas Operation Manager Surgeon(s) Jayshree Slaughter Estimated Blood Loss 10 ML Findings acute cholecystitis Fluids (cc crystalloids) 1200ml Specimens A: Gallbladder and Contents Drains none Anesthesia general Complication(s) None Disposition Recovery Room / PACU
[2016-07-21] MEDS ORDERED: ACETAMINOPHEN 325 MG TAB PO PRN (14:30)
[2016-07-21] MEDS ORDERED: ONDANSETRON INJ 2 MG/ML 2 ML VIAL IV PRN ×2 (14:30→14:45)
[2016-07-21] MEDS ORDERED: EpHEDrine SULFATE INJ 50 MG/ML AMP IV PRN (14:45)
[2016-07-21] MEDS ORDERED: ATROPINE SULFATE 0.1 MG/ML 5ML SYR IV PRN (14:45)
[2016-07-21] MEDS ORDERED: FENTANYL CITRATE INJ 50 MCG/1 ML 2 ML VIAL IV PRN (14:45)
[2016-07-21] MEDS ORDERED: NALOXONE HCL 0.4 MG/1 ML VIAL/CARP IV PRN (14:45)
[2016-07-21] MEDS ORDERED: PROMETHAZINE HCL INJ 12.5 MG in SODIUM CHLORIDE 0.9% 50ML 50 ML IV PRN (14:45)
--- NOTE | 2016-07-21 15:03 | OPERATIVE REPORT ---
DATE OF OPERATION: 07/21/2016 PREOPERATIVE DIAGNOSES: Acute cholecystitis, cholelithiasis. POSTOPERATIVE DIAGNOSIS: Same. OPERATION: Laparoscopic cholecystectomy. SURGEON: Dr. Aman Blackmon. HEALTHCARE MARKET CONSULTANT: Jayshree Stanley PA-C. ANESTHESIA: General. ESTIMATED BLOOD LOSS: About 10 mL. FINDINGS: Acute cholecystitis with cholelithiasis. COMPLICATIONS: None. IV FLUIDS: 1200 mL. INDICATIONS FOR THE PROCEDURE: This is a 60-year-old female who was diagnosed with acute cholecystitis. Patient will require by his family to do laparoscopic cholecystectomy, possible open, possible cholangiogram. I did talk to the patient's son and based on the patient had massive stroke in the past the patient could not talk and the son is power of commercial litigation attorney. I did talk to the patient's son about the benefit and risk, alternate procedure. I indicated the risks may include but not limited such as bleeding, infection, injury to common bile duct, bile leak, injury to bowel, may need ERCP, myocardial infarction, DVT, stroke and even . The patient's son understands. He signed informed consent and he agreed to proceed with procedure. I answered all questions. DETAILS OF PROCEDURE: We brought the patient to the OR, put the patient in the supine position. The patient received SCD on bilateral legs to prevent DVT. Also, the patient received 2 grams Ancef IV for prophylactic antibiotic. The patient received general anesthesia without difficulty. The abdomen was prepped and draped in routine sterile fashion. After a timeout, I injected local anesthesia by using 0.5% lidocaine mixed with 0.25% Marcaine just above umbilical, made a small incision just above umbilical, opened fascia and opened peritoneum under direct vision. I put a [place]kin trocar in, connected to CO2 to create pneumoperitoneum. Flow rate 6 liter per minute. Pressure not more than 14 mmHg. Once we get a nice pneumoperitoneum, we put a 10 mm camera in and looked around the abdomen shows no more findings on the stomach, small bowel, large bowel and the liver; however, the gallbladder showing significant inflammation, gallbladder wall thickening, edema, showing chronic cholecystitis. Then I put another 3.5 mm trocar on the right upper quadrant. Once all trocars in I put grasper in to hold the pouch over the base of the gallbladder, put direction to the diaphragm and then I put another grasper in to hold the pouch over the gallbladder, put latter to expose the triangle of Calot. The cystic duct was identified and mobilized. Then I put two 5 mm metal clips on the proximal cystic duct, 1 on the distal cystic duct and then used scissor to transect the cystic duct. Then the cystic artery was identified and mobilized. Then I put two 5 mm metal clips on the proximal cystic artery, 1 on the distal cystic artery. Then, I used scissor transection the cystic artery then I used Bovie to take down the gallbladder without difficulty. Rechecked and no active bleeding, no bile leak from the liver bed. Then we removed the gallbladder through the catch bag, then we reinserted Elkin trocar in connected to CO2 to create pneumoperitoneum. Again I put the camera in and looked around the abdomen showing no active bleeding, no bile leak from the liver bed. Then we removed all trocar under direct vision. No active bleeding from trocar sites. Then, the pneumoperitoneum was released. Closed umbilical incision, fascial layer by using #1 Vicryl [id number] x2, closed subcutaneous layer by using 2-0 Vicryl, closed skin by using 4-0 Vicryl, another 3.5 mm trocar site closed skin only by using 4-0 Vicryl. Then we put the dressing on. The patient tolerated the procedure well. All the instrument, needle and sponge count correct x2 at the end of the case. The specimen sent to pathology. After the procedure, I did talk to the patient, the son, the patient's mom and the patient's sister about the OR finding and procedure we did, they understand. I attest to the content of the Intraoperative Record and any orders documented therein. Any exceptio ns are noted below.
--- NOTE | 2016-07-21 15:12 | Anesthesiology Progress Note ---
Anesthesia Post Op Note Date & Time Jul 21, 2016 at 15:10 Vital Signs Pain Intensity: 5 Vital Signs Past 12 Hours Date Time Temp Pulse Resp B/P Pulse Ox O2 Delivery O2 Flow Rate FiO2 07/21/16 15:00 51 18 150/79 99 Nasal Cannula 3 07/21/16 14:50 56 14 147/79 99 Mask 5 07/21/16 14:40 36.4 51 14 149/76 99 Mask 10 07/21/16 14:32 36.4 55 12 152/77 100 Mask 10 07/21/16 12:05 36.3 45 16 143/65 98 Room Air 07/21/16 08:09 94 Room Air 07/21/16 07:15 36.7 46 18 119/58 94 Room Air Notes Mental Status: alert / awake / arousable, participated in evaluation, see Notes Pt Amnestic to Procedure: Yes Nausea / Vomiting: adequately controlled Pain: adequately controlled Airway Patency, RR, SpO2: stable & adequate BP & HR: stable & adequate Hydration State: stable & adequate Anesthetic Complications: no major complications apparent pt is non-verbal secondary to a hemorrhagic CVA
[2016-07-21] MEDS: D5W AND 1/2NSS + 20MEQ KCL 1,000 ML IV SCH (15:42)
[2016-07-21] MEDS ORDERED: PIPERACILL/TAZOBAC CONSULT ACTIVE PRN (17:00)
[2016-07-21] MEDS: QUETIAPINE FUMARATE 25 MG TAB PO SCH (20:59)
[2016-07-22 03:27] VITALS: BP 116/74; PULSE 58; TEMP 37.1; O2SAT 98
[2016-07-22] MEDS: D5W AND 1/2NSS + 20MEQ KCL 1,000 ML IV SCH (04:11)
[2016-07-22 06:31] LABS: COMPLETE YES; HEMATOCRIT 43.5 % (37-47); LYMPH % 17.7 %; LYMPH ABS # 1.01 K/uL (1.2-3.4); MEAN CELL VOLUME 92.2 fL (80-100); MEAN CORPUSCULAR HEMOGLOBIN 30.7 pg (25-34); MEAN CORPUSCULAR HGB CONC 33.3 g/dl (32-36); MEAN PLATELET VOLUME 11.1 fL (7.4-10.4); MONO % 6.3 %; PLATELET COUNT 135 K/uL (130-400); RED BLOOD COUNT 4.72 M/uL (4.2-5.4)
[2016-07-22 07:11] VITALS: BP 108/65; PULSE 68; TEMP 36.4; O2SAT 98
[2016-07-22 07:28] LABS: ALB/GLOB RATIO 0.7 (0.9-2); BUN/CREATININE RATIO 6.1 (10-20); CALCIUM 9.2 mg/dl (8.5-10.1); CREATININE 0.58 mg/dl (0.60-1.20); POTASSIUM 3.5 mmol/L (3.5-5.1)
[2016-07-22] MEDS: PIPERACILL/TAZOBAC IV 3.375 GM in DEXTROSE 5% 100ML 100 ML IV SCH (07:41)
[2016-07-22] MEDS: POTASSIUM CHLR 10 MEQ / WTR 10 MEQ in PREMIXED WATER 100 ML IV SCH ×2 (08:14→09:23)
[2016-07-22] MEDS: CLONAZEPAM 0.5 MG TAB PO SCH (08:49)
[2016-07-22] MEDS: NYSTATIN SUSP 500,000 U/5 ML UDC PO SCH ×2 (08:50→13:04)
[2016-07-22] MEDS: HYOSCYAMINE SULFATE 0.125 MG SL TAB PO SCH ×2 (08:50→13:04)
--- NOTE | 2016-07-22 08:51 | Surgery Progress Note ---
Surgery Progress Note Date of Service Jul 22, 2016. Subjective Post OP Day: 1 patient nonverbal at baseline shakes head no when asked about belly pain does move hands toward abdomen on examination per nurse she has not had anything for pain since yesterday morning tolerating oral intake with pudding Objective Vital Signs: Date Time Temp Pulse Resp B/P Pulse Ox O2 Delivery O2 Flow Rate FiO2 07/22/16 07:11 36.4 68 20 108/65 98 Nasal Cannula 2.0 07/22/16 07:05 Nasal Cannula 1.0 07/22/16 03:27 37.1 58 18 116/74 98 Nasal Cannula 1.0 07/21/16 22:59 36.4 61 18 147/75 98 Nasal Cannula 1.0 07/21/16 20:00 Nasal Cannula 1.0 07/21/16 18:56 36.3 58 16 139/84 100 Nasal Cannula 1.0 07/21/16 17:30 36.7 56 16 126/72 100 Nasal Cannula 1.0 07/21/16 16:40 36.2 56 16 125/73 100 Nasal Cannula 1.0 07/21/16 16:05 36.2 53 16 143/81 100 Nasal Cannula 1.0 07/21/16 15:36 36.0 52 18 122/75 99 Room Air 07/21/16 15:35 Nasal Cannula 1.0 07/21/16 15:20 51 16 149/74 100 Nasal Cannula 3 07/21/16 15:10 36.5 50 16 142/76 100 Nasal Cannula 3 07/21/16 15:00 51 18 150/79 99 Nasal Cannula 3 07/21/16 14:50 56 14 147/79 99 Mask 5 07/21/16 14:40 36.4 51 14 149/76 99 Mask 10 07/21/16 14:32 36.4 55 12 152/77 100 Mask 10 07/21/16 12:05 36.3 45 16 143/65 98 Room Air General Appearance: WD/WN, no apparent distress Head: normocephalic, atraumatic Neck: trachea midline Respiratory/Chest: no respiratory distress, no accessory muscle use Cardiovascular: regular rate, rhythm, no murmur Abdomen: non distended, soft, + tenderness (appropriate post op) Incision(s): clean (dressings clean and dry), dry Laboratory Results: Results Past 24 Hours Test 07/22/16 05:50 Range/Units White Blood Count 5.70 4.8-10.8 K/uL Red Blood Count 4.72 4.2-5.4 M/uL Hemoglobin 14.5 12.0-16.0 g/dL Hematocrit 43.5 37-47 % Mean Corpuscular Volume 92.2 80-100 fL Mean Corpuscular Hemoglobin 30.7 25-34 pg Mean Corpuscular Hemoglobin Concent 33.3 32-36 g/dl Platelet Count 135 130-400 K/uL Mean Platelet Volume 11.1 7.4-10.4 fL Neutrophils (%) (Auto) 76.0 % Lymphocytes (%) (Auto) 17.7 % Monocytes (%) (Auto) 6.3 % Eosinophils (%) (Auto) 0.0 % Basophils (%) (Auto) 0.0 % Neutrophils # (Auto) 4.33 1.4-6.5 K/uL Lymphocytes # (Auto) 1.01 1.2-3.4 K/uL Monocytes # (Auto) 0.36 0.11-0.59 K/uL Eosinophils # (Auto) 0.00 0-0.5 K/uL Basophils # (Auto) 0.00 0-0.2 K/uL RDW Standard Deviation 44.0 36.4-46.3 fL RDW Coefficient of Variation 12.8 11.5-14.5 % Immature Granulocyte % (Auto) 0.0 % Immature Granulocyte # (Auto) 0.00 0.00-0.02 K/uL Sodium Level 140 136-145 mmol/L Potassium Level 3.5 3.5-5.1 mmol/L Chloride Level 103 98-107 mmol/L Carbon Dioxide Level 32 21-32 mmol/L Anion Gap 5.0 3-11 mmol/L Blood Urea Nitrogen 4 7-18 mg/dl Creatinine 0.58 0.60-1.20 mg/dl Est Creatinine Clear Calc Drug Dose 90.5 ml/min Estimated GFR () 114.5 Estimated GFR (Non- 98.8 BUN/Creatinine Ratio 6.1 10-20 Random Glucose 161 70-99 mg/dl Calcium Level 9.2 8.5-10.1 mg/dl Total Bilirubin 0.7 0.2-1 mg/dl Aspartate Amino Transf (AST/SGOT) 25 15-37 U/L Alanine Aminotransferase (ALT/SGPT) 99 12-78 U/L Alkaline Phosphatase 112 45-117 U/L Total Protein 6.7 6.4-8.2 gm/dl Albumin 2.8 3.4-5.0 gm/dl Globulin 3.9 2.5-4.0 gm/dl Albumin/Globulin Ratio 0.7 0.9-2 Assessment & Plan POD # 1 s/p laparoscopic cholecystectomy - vitals stable - no leukocytosis - labs including total bilirubin and LFTs normalized - tolerating full liquids Plan: From surgical standpoint patient may be discharged back to nursing facility today Dressings may be removed in 4 days, sponge bath in meantime and then shower Follow-up with Dr. Blackmon 1 week, call office at [phone] to make an appointment Dr. Blackmon has seen and examined patient, agrees with assessment and plan.
[2016-07-22] MEDS: OXYCODONE HCL IR 5 MG TAB (IMMEDIATE RELEASE) PO PRN (09:23)
[2016-07-22] MEDS ORDERED: BISACODYL 10 MG SUPP PR ONE (10:00)
--- NOTE | 2016-07-22 10:01 | Hospitalist Progress Note ---
Hospitalist Progress Note Date of Service Jul 22, 2016. Subjective Pt evaluation today including: conversation w/ patient, conversation w/ family (daughter) Pain: None PO Intake: [place] thickened liquids, soft diet Voiding: no incontinence The patient was seen and examined this morning. Her daughter is present at bedside and states she seemed to be in pain earlier, but since has had some medication and now appears more comfortable. Pt is nonverbal but nods her head no when asked about abdominal pain, flatus, bms, chest pain, shortness of breath , fever, sweats or chills. Nods yes to question if she sleep well. Discussion was held that the patient should be passing gas/having bowel movements and able to tolerate a diet prior to dc. All the daughters questions and concerns were addressed. Additional Comments: 10 point ROS as stated above and otherwise negative. Objective Vital Signs Date Time Temp Pulse Resp B/P Pulse Ox O2 Delivery O2 Flow Rate FiO2 07/22/16 07:11 36.4 68 20 108/65 98 Nasal Cannula 2.0 07/22/16 07:05 Nasal Cannula 1.0 07/22/16 03:27 37.1 58 18 116/74 98 Nasal Cannula 1.0 07/21/16 22:59 36.4 61 18 147/75 98 Nasal Cannula 1.0 07/21/16 20:00 Nasal Cannula 1.0 07/21/16 18:56 36.3 58 16 139/84 100 Nasal Cannula 1.0 07/21/16 17:30 36.7 56 16 126/72 100 Nasal Cannula 1.0 07/21/16 16:40 36.2 56 16 125/73 100 Nasal Cannula 1.0 07/21/16 16:05 36.2 53 16 143/81 100 Nasal Cannula 1.0 07/21/16 15:36 36.0 52 18 122/75 99 Room Air 07/21/16 15:35 Nasal Cannula 1.0 07/21/16 15:20 51 16 149/74 100 Nasal Cannula 3 07/21/16 15:10 36.5 50 16 142/76 100 Nasal Cannula 3 07/21/16 15:00 51 18 150/79 99 Nasal Cannula 3 07/21/16 14:50 56 14 147/79 99 Mask 5 07/21/16 14:40 36.4 51 14 149/76 99 Mask 10 07/21/16 14:32 36.4 55 12 152/77 100 Mask 10 07/21/16 12:05 36.3 45 16 143/65 98 Room Air Physical Exam Notes: General Appearance: WD/WN, appears comfortable, + pertinent finding (S/p right sided craniotomy s/p deformity from bone removal) Eyes: PERRL, EOMI ENT: hearing grossly normal, pharynx normal Neck: supple, no JVD Respiratory/Chest: lungs clear, no respiratory distress, no accessory muscle use Cardiovascular: regular rate, rhythm, no murmur Abdomen: NABS x 4 quad, soft, nondistended, nontender to palpation (+ dressing over 4 incision sites appear c/d/i, no surrounding erythema) Extremities: non-tender, no pedal edema, no calf tenderness Neurologic/Psychiatric: awakens easily, + pertinent finding (nonverbal, unable to test orientation, follows commands, communicates with nodding head yes or no , left sided hemipalegia) Skin: normal color, warm/dry Laboratory Results Last 24 Hours Test 07/22/16 05:50 White Blood Count 5.70 K/uL Red Blood Count 4.72 M/uL Hemoglobin 14.5 g/dL Hematocrit 43.5 % Mean Corpuscular Volume 92.2 fL Mean Corpuscular Hemoglobin 30.7 pg Mean Corpuscular Hemoglobin Concent 33.3 g/dl Platelet Count 135 K/uL Mean Platelet Volume 11.1 fL Neutrophils (%) (Auto) 76.0 % Lymphocytes (%) (Auto) 17.7 % Monocytes (%) (Auto) 6.3 % Eosinophils (%) (Auto) 0.0 % Basophils (%) (Auto) 0.0 % Neutrophils # (Auto) 4.33 K/uL Lymphocytes # (Auto) 1.01 K/uL Monocytes # (Auto) 0.36 K/uL Eosinophils # (Auto) 0.00 K/uL Basophils # (Auto) 0.00 K/uL RDW Standard Deviation 44.0 fL RDW Coefficient of Variation 12.8 % Immature Granulocyte % (Auto) 0.0 % Immature Granulocyte # (Auto) 0.00 K/uL Sodium Level 140 mmol/L Potassium Level 3.5 mmol/L Chloride Level 103 mmol/L Carbon Dioxide Level 32 mmol/L Anion Gap 5.0 mmol/L Blood Urea Nitrogen 4 mg/dl Creatinine 0.58 mg/dl Est Creatinine Clear Calc Drug Dose 90.5 ml/min Estimated GFR () 114.5 Estimated GFR (Non- 98.8 BUN/Creatinine Ratio 6.1 Random Glucose 161 mg/dl Calcium Level 9.2 mg/dl Total Bilirubin 0.7 mg/dl Aspartate Amino Transf (AST/SGOT) 25 U/L Alanine Aminotransferase (ALT/SGPT) 99 U/L Alkaline Phosphatase 112 U/L Total Protein 6.7 gm/dl Albumin 2.8 gm/dl Globulin 3.9 gm/dl Albumin/Globulin Ratio 0.7 Assessment and Plan 60 yo female with history of right sided stroke, HTN, hyperlipidemia, left sided paralysis and non-verbal from stroke, here with acute cholecystitis Acute cholecystitis s/p lap maxine on 07/21 - POD #1: Appreciate gen surg, Dr. Blackmon- pt appears comfortable today, oxycodone on board for pain control, no bowel movement yet, had flatus last night per EMR, ate 50% of breakfast (soft foods and nectar thick liquids) - GI on board- appreciate recs - Will stop zosyn, had for 3 days. - LFTs much improved s/p lap maxine - pain control with oxycodone - Zofran PRN - Discussion with daughter regarding likely discharge within 24 hours but need to have BM and flatus. Pt tolerating diet. UTI growing klebsiella pneumonia - lema sensitive - Was covered with zosyn x 3 days, will switch to cipro orally x 4 more days to complete a 7 day course. Hypokalemia: - Resolved, place 40mEq in IV fluids and run at 80cc/hr Hypernatremia - Slowly trending downward, Na+ 147 today Elevated BP - likely was due to pain, does not take anything chronically - resolved with pain control h/o right sided stroke, left side paralysis: - supportive care, turn and repo Q2H prn Anxiety: Klonopin PRN, Seroquel qHS DVT prophylaxis: heparin SC CODE STATUS: FULL , no cardioversion, no mechanical ventilation [facility], likely dc within 24 hours
[2016-07-22] MEDS ORDERED: CPR500 PO (10:09)
[2016-07-22] MEDS ORDERED: NYSS5 PO (10:09)
[2016-07-22] MEDS ORDERED: RXC5 PO (10:09)
--- NOTE | 2016-07-22 10:19 | Discharge Instructions ---
Discharge Instructions Date of Service Jul 22, 2016. Admission Reason for Admission: Acute Cholecytitis Discharge Discharge Diagnosis / Problem: Acute cholecystitis Discharge Goals Goal(s): Decrease discomfort, Improve function, Increase independence, Improve disease control Activity Recommendations Activity Limitations: resume your previous activity Lifting Limitations: no more than 25 pounds, gradually increase as tolerated Exercise/Sports Limitations: gradually increase as tolerated Shower/Bathe: no limitations (with assistance) Driving or Machine Use: DO NOT DRIVE . Instructions / Follow-Up Instructions / Follow-Up You were admitted to [facility] with abdominal pain, lethargy and weakness and diagnosed with acute cholecystitis. You were also diagnosed with klebsiella pneumonia urinary tract infection. - During your stay here you were treated with antibiotics, pain medication, intravenous fluids. - You underwent laparoscopic cholecystectomy on 07/[address] Blackmon- please see surgical discharge instructions for specific care regarding cholecystectomy. - You have been given a prescription for oxycodone for pain. Please continue to use a bowel regimen while taking this medication. Continue taking all other medication as prescribed. Follow up with your Primary Care Provider at [facility] within 24-48 hours of arrival. Current Hospital Diet Patient's current hospital diet: Full Liquid Diet Discharge Diet Recommended Diet: Regular Diet Diet Texture: Mechanical Soft (ground) Liquid Consistency: [place] Thick Procedures Procedures Performed: Laparoscopic Cholecystectomy 07/21/[address] Blackmon Pending Studies Studies pending at discharge: no Medical Emergencies . Who to Call and When: Medical Emergencies: If at any time you feel your situation is an emergency, please call 911 immediately. . Non-Emergent Contact Non-Emergency issues call your: Primary Care Provider Call Non-Emergent contact if: you have a fever, temperature is above 100.5, your pain is not controlled, your pain is worsening, your pain is unusual for you, your pain is concerning you, wound has increased drainage, wound has increased redness, wound has increased pain, you have any medication questions . Past History Medical & Surgical History: (1) Acute cholecystitis (2) Hypertension (3) Brain injury (4) Hyperlipidemia . "Provider Documentation" section prepared by Isatu Chavez. . VTE Core Measure Inpt VTE Proph given/why not?: Unfractionated heparin SQ, T.E.D. Stockings, SCD 's
[2016-07-22] MEDS: PANTOprazole INJ 40 MG in SYRINGE 0 ML IV SCH (10:42)
[2016-07-22 12:00] VITALS: BP 123/80; PULSE 63; TEMP 36.7; O2SAT 96
--- NOTE | 2016-07-22 13:05 | Discharge Summary ---
Discharge Summary Date of Service Jul 22, 2016. 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 ABDOMEN AND PELVIS CT WITH IV CONTRAST 07/18/16 IMPRESSION: 1. Distended gallbladder with an enhancing wall and pericholecystic fluid/inflammatory change. This is consistent with acute cholecystitis. 2. Normal caliber common bile duct. 3. No bowel wall thickening or obstruction. 4. Additional findings as described above. ABDOMINAL ULTRASOUND, RIGHT UPPER QUADRANT 07/19/16 IMPRESSION: 1. Extensive material within the gallbladder which may reflect sludge and stones. Moderate gallbladder wall thickening with trace pericholecystic fluid. The findings favor acute cholecystitis. A hepatobiliary scan could be obtained as indicated. 2. No biliary ductal dilatation. Consultations: General Surgery Gastroenterology Medication Reconciliation New Medications: Ciprofloxacin (Ciprofloxacin HCl) 500 Mg Tab 500 MG PO DAILY for 3 Days, #3 TAB Nystatin (Nystatin) 5 Ml Susp 5 ML PO QID for 7 Days, #28 DOSE Oxycodone HCl (Oxycodone HCl) 5 Mg Tab 5 MG PO Q4H PRN for Pain for 5 Days, #20 TAB Continued Medications: Acetaminophen Tab (Tylenol) 325 Mg Tab 650 MG PO Q4H, TAB Bisacodyl (Bisac-Evac) 10 Mg Sup 10 MG SC UD PRN for Constipation Bisacodyl (Dulcolax) 10 Mg Sup 10 MG SC UD PRN for Constipation, SUP Clonazepam (Klonopin) 0.5 Mg Tab 0.5 MG PO BID, TAB Docusate Sodium (Colace) 100 Mg Cap 100 CAP PO QAM for 30 Days, #3000 CAP Enteral Nutrition Formula (Nutritional Supplement) Ea 1 DOSE PO QAM Ergocalciferol (Vitamin D 51819 Unit) 50,000 Unit Cap 35986 UNIT PO WK ON FRIDAYS Famotidine (Pepcid Ac Ez Chews Maximu) 20 Mg Chw 20 MG PO QAM Hyoscyamine Sulfate (Levsin) 0.125 Mg Tab 0.125 MG PO QID, TAB Ibuprofen (Motrin) 600 Mg Tab 600 MG PO Q6H PRN for Pain, TAB TAKE WITH FOOD Lactulose (Lactulose) 30 Gm/45 Ml Syrp 30 GM PO QAM Magnesium Hydroxide (Milk Of Magnesia) 30 Ml Susp 30 ML PO UD PRN for Constipation, ML Multiple Vitamin (Multi Vitamin Daily) 1 Tab Tab 1 TAB PO QAM Ondansetron Hcl (Zofran) 4 Mg Tab 4 MG PO Q4H PRN for Nausea, TAB Oxycodone HCl (Oxycodone HCl) 5 Mg Tab 5 MG PO TID PRN for Headache Potassium Chloride (Micro-K Ext Rel) 10 Meq Capcr 20 MEQ PO QAM, CAP Quetiapine Fumarate (Seroquel) 50 Mg Tab 50 MG PO HS, TAB Senna (Senokot) 8.6 Mg Tab 1 TAB PO BID, TAB Sodium Phosphate/Biphosphate (Fleet Enema) Sabi 1 EA SC DAILY, BTL Sorbitol (Laxative) (Sorbitol) 70 % Meghana 15 ML PO HS PRN for Constipation Discharge Exam Subjective Pt evaluation today including: conversation w/ patient, conversation w/ family (daughter) Pain: None PO Intake: [place] thickened liquids, soft diet Voiding: no incontinence The patient was seen and examined this morning. Her daughter is present at bedside and states she seemed to be in pain earlier, but since has had some medication and now appears more comfortable. Pt is nonverbal but nods her head no when asked about abdominal pain, flatus, bms, chest pain, shortness of breath , fever, sweats or chills. Nods yes to question if she sleep well. Discussion was held that the patient should be passing gas/having bowel movements and able to tolerate a diet prior to dc. All the daughters questions and concerns were addressed. ROS : 10 point ROS as stated above and otherwise negative. Objective Vital Signs Date Time Temp Pulse Resp B/P Pulse Ox O2 Delivery O2 Flow Rate FiO2 07/22/16 07:11 36.4 68 20 108/65 98 Nasal Cannula 2.0 07/22/16 07:05 Nasal Cannula 1.0 07/22/16 03:27 37.1 58 18 116/74 98 Nasal Cannula 1.0 07/21/16 22:59 36.4 61 18 147/75 98 Nasal Cannula 1.0 07/21/16 20:00 Nasal Cannula 1.0 07/21/16 18:56 36.3 58 16 139/84 100 Nasal Cannula 1.0 07/21/16 17:30 36.7 56 16 126/72 100 Nasal Cannula 1.0 07/21/16 16:40 36.2 56 16 125/73 100 Nasal Cannula 1.0 07/21/16 16:05 36.2 53 16 143/81 100 Nasal Cannula 1.0 07/21/16 15:36 36.0 52 18 122/75 99 Room Air 07/21/16 15:35 Nasal Cannula 1.0 07/21/16 15:20 51 16 149/74 100 Nasal Cannula 3 07/21/16 15:10 36.5 50 16 142/76 100 Nasal Cannula 3 07/21/16 15:00 51 18 150/79 99 Nasal Cannula 3 07/21/16 14:50 56 14 147/79 99 Mask 5 07/21/16 14:40 36.4 51 14 149/76 99 Mask 10 07/21/16 14:32 36.4 55 12 152/77 100 Mask 10 07/21/16 12:05 36.3 45 16 143/65 98 Room Air Physical Exam General Appearance: WD/WN, appears comfortable, + pertinent finding (S/p right sided craniotomy s/p deformity from bone removal) Eyes: PERRL, EOMI ENT: hearing grossly normal, pharynx normal Neck: supple, no JVD Respiratory/Chest: lungs clear, no respiratory distress, no accessory muscle use Cardiovascular: regular rate, rhythm, no murmur Abdomen: NABS x 4 quad, soft, nondistended, nontender to palpation (+ dressing over 4 incision sites appear c/d/i, no surrounding erythema) Extremities: non-tender, no pedal edema, no calf tenderness Neurologic/Psychiatric: awakens easily, + pertinent finding (nonverbal, unable to test orientation, follows commands, communicates with nodding head yes or no , left sided hemipalegia) Skin: normal color, warm/dry Hospital Course H&P per Eric Devine M.D. History of Present Illness Source: family, hospital records, [facility] 60 yo female with h/o large right sided stroke that required craniotomy, but unfortunately left her with left sided paralysis and non-verbal status, was sent to the ED from [facility] due to vomiting and generally not looking well. The patient could not give any history, all was obtained from the ED physician who also discussed with the SNF staff. All they could say was that she was eating less, vomiting and seemed uncomfortable. No fevers were documented and vitals appeared stable. She was sent to the ED for evaluation. She was afebrile, vitals stable, WBC was 10.8. A CT abdomen/pelvis showed cholecystitis , no signs of biliary duct dilation. Case was discussed with surgery by the ED physician and he recommended IV fluids and antibiotics and GI consultation to evaluate for biliary stones. Her LFT were noted to be mildly elevated. On my exam, the patient was non-verbal, no history. I spoke with family members here in the ED, they could not offer me any other history. I answered all of their questions. Physical Exam Vital Signs Date Time Temp Pulse Resp B/P Pulse Ox O2 Delivery O2 Flow Rate FiO2 07/18/16 15:28 78 07/18/16 15:09 83 140/91 95 Room Air 07/18/16 13:05 76 07/18/16 13:03 37.2 73 30 168/92 94 Room Air General Appearance: WD/WN, no apparent distress Head: atraumatic, + pertinent finding (evidence of prior right craniotomy, right parietal/frontal lobes concave) Eyes: normal inspection, PERRL, sclerae normal ENT: normal ENT inspection, pharynx normal Neck: supple, no adenopathy, no JVD, trachea midline Respiratory/Chest: chest non-tender, lungs clear, no respiratory distress, no accessory muscle use, + decreased breath sounds (bases) Cardiovascular: regular rate, rhythm, no edema, no gallop, no JVD, no murmur, normal peripheral pulses Abdomen/GI: normal bowel sounds, non tender (could not elicit any pain in RUQ, negative Padron sign), soft, no organomegaly Back: normal inspection, no CVA tenderness, no muscle spasm, normal range of motion Extremities/Musculoskelatal: no calf tenderness, normal capillary refill, no pedal edema, non-tender, pelvis stable Neurologic/Psych: alert, normal mood/affect, + motor weakness (left sided paralysis, left hand contracture), + pertinent finding (cannot follow commands) Skin: normal color, warm/dry, no rash Lymphatic: no adenopathy Hospital course 60 yo female with history of right sided stroke, HTN, hyperlipidemia, left sided paralysis and non-verbal from stroke, here with acute cholecystitis who underwent laparoscopic cholecystectomy by Dr. Blackmon on 07/21/16. Patient was treated with IV antibiotics for 3 days, but was discontinued after surgery. Patient was found to be growing klebsiella pneumonia UTI which was lema sensitive, so was continued on Cipro 3 more days to complete a one-week course. Electrolyte abnormalities corrected, and the patient was stable for discharge back to [facility]. Daughter and son were updated prior to discharge. Acute cholecystitis s/p lap maxine on 07/21 - POD #1: Appreciate gen surg, Dr. Blackmon- pt appears comfortable today, oxycodone on board for pain control, no bowel movement yet, had flatus last night per EMR, ate 50% of breakfast (soft foods and nectar thick liquids) - GI on board- appreciate recs - Will stop zosyn, had for 3 days. - LFTs much improved s/p lap maxine - pain control with oxycodone - Zofran PRN - Discussion with daughter regarding likely discharge within 24 hours but need to have BM and flatus. Pt tolerating diet. UTI growing klebsiella pneumonia - lema sensitive - Was covered with zosyn x 3 days, will switch to cipro orally x 4 more days to complete a 7 day course. Hypokalemia: - Resolved, place 40mEq in IV fluids and run at 80cc/hr Hypernatremia - Slowly trending downward, Na+ 147 today Elevated BP - likely was due to pain, does not take anything chronically - resolved with pain control h/o right sided stroke, left side paralysis: - supportive care, turn and repo Q2H prn Anxiety: Klonopin PRN, Seroquel qHS DVT prophylaxis: heparin SC CODE STATUS: FULL , no cardioversion, no mechanical ventilation Disposition: From [place], dc today. Total Time Spent: Greater than 30 minutes This includes examination of the patient, discharge planning, medication reconciliation, and communication with other providers. Discharge Instructions Please refer to the electronic Patient Visit Report (Discharge Instructions) for additional information. Follow-Up Follow up with your Primary Care Provider at [facility] within 24-48 hrs of arrival there.
[2016-07-22 14:20] VITALS: BP 123/80; PULSE 63; TEMP 36.7; O2SAT 96
[2016-07-22 15:17] VITALS: BP 122/66; PULSE 63; TEMP 37; O2SAT 96
[2016-07-23] MEDS ORDERED: CIPROFLOXACIN 500 MG TAB PO SCH (09:00)
--- NOTE | 2016-08-12 12:49 | Surgery Consultation ---
Consultation Date of Consultation: July 18, 2016. Attending Physician: Elias Hylton MD, PhD History of Present Illness Source: patient, clinic records, hospital records, other 60 yo female with h/o large right sided stroke that required craniotomy, but unfortunately left her with left sided paralysis and non-verbal status, was sent to the ED from [facility] due to vomiting and generally not looking well. The patient could not give any history, all was obtained from the ED physician who also discussed with the SNF staff. All they could say was that she was eating less, vomiting and seemed uncomfortable. No fevers were documented and vitals appeared stable. She was sent to the ED for evaluation. She was afebrile, vitals stable, WBC was 10.8. A CT abdomen/pelvis showed cholecystitis , no signs of biliary duct dilation. Case was discussed with surgery by the ED physician and he recommended IV fluids and antibiotics and GI consultation to evaluate for biliary stones. Her LFT were noted to be mildly elevated. On my exam, the patient was non-verbal, no history. I spoke with nurse here. pt has no nausea, no vomiting, but some abdominal pain, Past Medical/Surgical History Medical Problems: (1) Acute cholecystitis Status: Acute Social History Smoking Status: Never Smoker Smokeless Tobacco Use: No Alcohol Use: none Drug Use: none Housing Status: assisted living Occupation Status: disabled Allergies Coded Allergies: Morphine (Verified Allergy, Intermediate, hives, 07/18/16) Sulfa Antibiotics (Verified Allergy, Unknown, UNKNOWN, 07/18/16) Home Medications Scheduled Acetaminophen Tab (Tylenol), 650 MG PO Q4H Ciprofloxacin (Ciprofloxacin HCl), 500 MG PO DAILY Clonazepam (Klonopin), 0.5 MG PO BID Docusate Sodium (Colace), 100 CAP PO QAM Enteral Nutrition Formula (Nutritional Supplement), 1 DOSE PO QAM Ergocalciferol (Vitamin D 08347 Unit), 50,000 UNIT PO WK Famotidine (Pepcid Ac Ez Chews Maximu), 20 MG PO QAM Hyoscyamine Sulfate (Levsin), 0.125 MG PO QID Lactulose (Lactulose), 30 GM PO QAM Multiple Vitamin (Multi Vitamin Daily), 1 TAB PO QAM Nystatin (Nystatin), 5 ML PO QID Potassium Chloride (Micro-K Ext Rel), 20 MEQ PO QAM Quetiapine Fumarate (Seroquel), 50 MG PO HS Senna (Senokot), 1 TAB PO BID Sodium Phosphate/Biphosphate (Fleet Enema), 1 EA PA DAILY Scheduled PRN Bisacodyl (Bisac-Evac), 10 MG PA UD PRN for Constipation Bisacodyl (Dulcolax), 10 MG PA UD PRN for Constipation Ibuprofen (Motrin), 600 MG PO Q6H PRN for Pain Magnesium Hydroxide (Milk Of Magnesia), 30 ML PO UD PRN for Constipation Ondansetron Hcl (Zofran), 4 MG PO Q4H PRN for Nausea Oxycodone HCl (Oxycodone HCl), 5 MG PO TID PRN for Headache Oxycodone HCl (Oxycodone HCl), 5 MG PO Q4H PRN for Pain Sorbitol (Laxative) (Sorbitol), 15 ML PO HS PRN for Constipation Review of Systems Constitutional: No chills, No fatigue, No fever, No problem reported, No sweats , No weakness, No weight loss Eyes: No diplopia, No discharge, No eye pain, No problem reported, No redness, No worsening of vision ENT: No dental problems, No hearing loss, No nasal symptoms, No problem reported, No sore throat, No tinnitus, No trouble swallowing, No unusual epistaxis Respiratory: No cough, No dyspnea at rest, No dyspnea on exertion, No hemoptysis, No problem reported, No shortness of breath, No sputum, No wheezing Cardiovascular: No PND, No chest pain, No claudication, No edema, No orthopnea , No palpitations, No problem reported Abdomen: No GI bleeding, No constipation, No diarrhea, No nausea, No pain, No problem reported, No vomiting Neurologic: No balance problems, No memory loss, No numbness/tingling, No paralysis, No problem reported, No vertigo, No weakness Psychiatric: No anhedonism, No anxiety, No depression symptoms, No insomnia, No problem reported, No substance abuse Endocrine: No excessive thirst, No excessive urination, No fatigue, No problem reported Hematologic / Lymphatic: No abnormal bleeding/bruising, No clotting problems, No night sweats, No problem reported, No swollen lymph nodes Physical Exam General Appearance: WD/WN, no apparent distress Head: normocephalic Eyes: normal inspection ENT: normal ENT inspection Neck: supple, no JVD Respiratory/Chest: chest non-tender, lungs clear Cardiovascular: regular rate, rhythm, no edema, no JVD Abdomen/GI: normal bowel sounds, non tender, soft, no organomegaly Extremities/Musculoskelatal: normal inspection, no calf tenderness, normal capillary refill Laboratory Results ABDOMEN AND PELVIS CT WITH IV CONTRAST CT DOSE: 509.26 mGy.cm HISTORY: Generalized abdominal pain. TECHNIQUE: Multiaxial CT images of the abdomen and pelvis were performed following the use of intravenous contrast. COMPARISON STUDY: None. FINDINGS: Bibasilar linear densities consistent with subsegmental atelectasis. No pneumoperitoneum. No pneumatosis. No suspicious lytic or blastic osseous lesions. There are 3 hypodense lesions within the liver. Dominant lesion within the right hepatic lobe measures 1.4 cm. These are incompletely characterized on this single phase study but favor cysts or hemangiomas. The spleen, pancreas, adrenal glands are unremarkable. The kidneys enhance normally. Bilateral peripelvic renal cysts. The bladder is unremarkable. The uterus and bilateral adnexa are within normal limits. No bowel wall thickening or obstruction. A few colonic diverticula. Normal appendix. No retroperitoneal lymphadenopathy. Distended gallbladder with an enhancing wall and pericholecystic fluid/inflammatory change. This is consistent with acute cholecystitis. Normal caliber common bile duct. IMPRESSION: 1. Distended gallbladder with an enhancing wall and pericholecystic fluid/inflammatory change. This is consistent with acute cholecystitis. 2. Normal caliber common bile duct. 3. No bowel wall thickening or obstruction. 4. Additional findings as described above. Assessment & Plan IMP cholelithiasis, possible cholecystitis, CBD stones Plan: GI consult, possible ERCP, U/S study for gallbladder, repeat labs in AM will F/U Thanks,
[2017-03-02] MEDS ORDERED: SENN-61 PO (10:32)
[2017-03-02] MEDS ORDERED: MOML PO (10:32)
[2017-03-02] MEDS ORDERED: IPRASOL4 INH (10:32)
[2017-03-02] MEDS ORDERED: CLON0.5T3 PO (10:32)
[2017-03-02] MEDS ORDERED: MULT-506 PO (10:32)
[2017-03-02] MEDS ORDERED: ONDA4TAB46 PO (10:32)
[2017-03-02] MEDS ORDERED: GABA1CAP PO (10:32)
[2017-03-02] MEDS ORDERED: CHOL2000 PO (10:32)
[2017-03-02] MEDS ORDERED: POTA20TA16 PO (10:32)
[2017-03-02] MEDS ORDERED: FAMO20TA11 PO (10:32)
[2017-03-02] MEDS ORDERED: SODIENE PR (10:32)
[2017-03-02] MEDS ORDERED: HYOS1TAB PO (10:32)
[2017-03-02] MEDS ORDERED: QUET1TAB30 PO (10:32)
== END 2016-07-22 16:00 | DRG 418 ==
LOC: ENRESERVTM → ENRESERVDT → EDBD 12:56 → C.EDB 12:59 → C.MSW 15:54
PROVIDERS: ADMIT Internal Medicine; ATTEND Hospitalist
PROC: 0FT44ZZ Resection of Gallbladder, Percutaneous Endoscopic Approach (ICD-10-PCS; principal; 2016-07-21 12:00)
DX: K80.00 Calculus of gallbladder with acute cholecystitis without obstruction (principal); I69.354 Hemiplegia and hemiparesis following cerebral infarction affecting left non-dominant side; N39.0 Urinary tract infection, site not specified; E87.0 Hyperosmolality and hypernatremia; I69.320 Aphasia following cerebral infarction; I10 Essential (primary) hypertension; E78.5 Hyperlipidemia, unspecified; E87.6 Hypokalemia; F41.9 Anxiety disorder, unspecified; B37.9 Candidiasis, unspecified; B96.1 Klebsiella pneumoniae [K. pneumoniae] as the cause of diseases classified elsewhere; Z79.899 Other long term (current) drug therapy

== ENCOUNTER → 2016-09-27 | Outpatient (CLI) | payer OTHER ==
[~2016-09-27] MED LIST changes: +ACET325T96 PO; +BISA10SU38 PR; +BISA10SU7 PR; +CLON0.5T3 PO; +CPR500 PO; +DOCU-94 PO; +ERGO1CAP41 PO; -FRC PO; +HYOS1TAB PO; +IBUP-1450 PO; +LCTL45 PO; +MOML PO; +MULT-884 PO; +NTRS PO; +NYSS5 PO; +ONDA4TAB46 PO; +POTA10CA28 PO; +QUET1TAB32 PO; +RXC/5 PO; +RXC5 PO; +SENN-61 PO; +SODIENE PR; +SORB70SO6 PO; +[UNRECOGNIZED DRUG - CODE] PO
[2016-09-27 09:26] LABS: ALT/SGPT 20 U/L (12-78); BLOOD UREA NITROGEN 7 mg/dl (7-18); CALCIUM 8.2 mg/dl (8.5-10.1); CARBON DIOXIDE 27 mmol/L (21-32); CHLORIDE 109 mmol/L (98-107); CREATININE 0.59 mg/dl (0.60-1.20); GLUCOSE 73 mg/dl (70-99); POTASSIUM 3.7 mmol/L (3.5-5.1); SODIUM 142 mmol/L (136-145)
[2016-09-27 09:28] LABS: ALB/GLOB RATIO 0.8 (0.9-2); ALKALINE PHOSPHATASE 97 U/L (45-117); AST/SGOT 14 U/L (15-37)
== END ==
LOC: C.LABUPUNI 08:46
PROVIDERS: ATTEND Family Medicine
DX: I10 Essential (primary) hypertension (principal)

== ENCOUNTER → 2016-11-13 | Outpatient (CLI) | payer OTHER ==
--- NOTE | 2016-11-25 07:37 | CODING QUERY NO DIAGNOSIS ---
TREATMENT RENDERED WITHOUT A DIAGNOSIS To promote full compliance with coding requirements relating to patient care, physician participation is requested in all cases of wheat grower uncertainty. Please assist us with providing a diagnosis/symptom for the test(s) below: A diagnosis/symptom was not documented on your Order. A valid diagnosis/symptom is required to bill all insurances. Please remember that we are unable to code a diagnosis of rule out, probable, possible, questionable, or suspected. DATE OF SERVICE: 11/13/16 Tests that require a diagnosis: * VITAMIN D 25 HYDROXY DIAGNOSIS: Provider Signature: Date: Thank you Joellen Ferris [facility] Information Management Once completed, please kindly fax back to [phone] For questions please call [phone]
== END ==
LOC: C.LABUPUNI 08:19
PROVIDERS: ATTEND Family Medicine
DX: E55.9 Vitamin D deficiency, unspecified (principal); G89.29 Other chronic pain

== ENCOUNTER → 2017-01-08 | Outpatient (CLI) | payer OTHER ==
[~2017-01-08] MED LIST changes: -ERGO1CAP41 PO; +ERGO500011 PO
[2017-01-08 06:42] LABS: HEMATOCRIT 36.4 % (37-47); MEAN CELL VOLUME 93.8 fL (80-100); MEAN CORPUSCULAR HEMOGLOBIN 30.4 pg (25-34); MEAN CORPUSCULAR HGB CONC 32.4 g/dl (32-36); MEAN PLATELET VOLUME 10.4 fL (7.4-10.4); PLATELET COUNT 121 K/uL (130-400); RED BLOOD COUNT 3.88 M/uL (4.2-5.4); WHITE BLOOD COUNT 2.97 K/uL (4.8-10.8)
[2017-01-08 06:43] LABS: ALT/SGPT 15 U/L (12-78); BLOOD UREA NITROGEN 11 mg/dl (7-18); BUN/CREATININE RATIO 28.3 (10-20); CALCIUM 8.3 mg/dl (8.5-10.1); CARBON DIOXIDE 28 mmol/L (21-32); CHLORIDE 111 mmol/L (98-107); GLUCOSE 82 mg/dl (70-99); POTASSIUM 3.8 mmol/L (3.5-5.1); SODIUM 143 mmol/L (136-145)
[2017-01-08 06:46] LABS: ALB/GLOB RATIO 0.8 (0.9-2); ALKALINE PHOSPHATASE 87 U/L (45-117); AST/SGOT 16 U/L (15-37)
[2017-01-08 07:00] LABS: BASO % 0.3 %; BASO ABS # 0.01 K/uL (0-0.2); COMPLETE YES; EOS % 0.3 %; LYMPH % 60.6 %; MONO % 8.4 %; NEUT % 30.4 %
--- NOTE | 2017-01-21 09:57 | CODING QUERY NO DIAGNOSIS ---
TREATMENT RENDERED WITHOUT A DIAGNOSIS : 1955 To promote full compliance with coding requirements relating to patient care, physician participation is requested in all cases of associate director career services uncertainty. Please assist us with providing a diagnosis/symptom for the test(s) below: A diagnosis/symptom was not documented on your Order. A valid diagnosis/symptom is required to bill all insurances. Please remember that we are unable to code a diagnosis of rule out, probable, possible, questionable, or suspected. Tests that require a diagnosis: DOS: 01/08/17 * CBC WITH AUTO DIFFER DIAGNOSIS: * COMPREHENSIVE METABO DIAGNOSIS: Provider Signature: Date: Thank you Nan [facility] Information Management Once completed, please kindly fax back to [phone] For questions please call [phone]
== END | disposition home or self-care (01) ==
LOC: C.LABUPUNI 12:08
PROVIDERS: ATTEND Nurse Practitioner Family
DX: Z00.00 Encounter for general adult medical examination without abnormal findings (principal)

== ENCOUNTER → 2017-01-11 | Outpatient (CLI) | payer OTHER ==
[~2017-01-11] MED LIST changes: +ERGO1CAP41 PO; -ERGO500011 PO
[2017-01-11 11:05] LABS: MEAN CELL VOLUME 94.3 fL (80-100); MEAN CORPUSCULAR HEMOGLOBIN 31.1 pg (25-34); MEAN PLATELET VOLUME 10.6 fL (7.4-10.4); PLATELET COUNT 141 K/uL (130-400); RED BLOOD COUNT 4.24 M/uL (4.2-5.4); WHITE BLOOD COUNT 3.53 K/uL (4.8-10.8)
[2017-01-11 11:22] LABS: ALT/SGPT 16 U/L (12-78); BLOOD UREA NITROGEN 12 mg/dl (7-18); CALCIUM 8.6 mg/dl (8.5-10.1); CARBON DIOXIDE 29 mmol/L (21-32); CHLORIDE 107 mmol/L (98-107); CREATININE 0.44 mg/dl (0.60-1.20); GLUCOSE 70 mg/dl (70-99); SODIUM 142 mmol/L (136-145)
[2017-01-11 11:25] LABS: ALB/GLOB RATIO 0.8 (0.9-2); ALKALINE PHOSPHATASE 92 U/L (45-117); AST/SGOT 11 U/L (15-37)
[2017-01-11 11:54] LABS: BASO % 0.3 %; BASO ABS # 0.01 K/uL (0-0.2); COMPLETE YES; LYMPH % 58.6 %; LYMPH ABS # 2.07 K/uL (1.2-3.4); MONO % 8.2 %; NEUT % 32.9 %; VACUOLIZATION 1+
== END ==
LOC: C.LABUPUNI 10:26
PROVIDERS: ATTEND Nurse Practitioner Family
DX: I10 Essential (primary) hypertension (principal); E87.6 Hypokalemia

== ENCOUNTER → 2017-01-18 | Outpatient (CLI) | payer OTHER ==
[2017-01-18 10:40] LABS: MEAN CELL VOLUME 94.5 fL (80-100); MEAN CORPUSCULAR HEMOGLOBIN 29.5 pg (25-34); MEAN CORPUSCULAR HGB CONC 31.2 g/dl (32-36); MEAN PLATELET VOLUME 10.9 fL (7.4-10.4); PLATELET COUNT 135 K/uL (130-400); RED BLOOD COUNT 4.34 M/uL (4.2-5.4); WHITE BLOOD COUNT 4.16 K/uL (4.8-10.8)
== END ==
LOC: C.LABUPUNI 10:06
PROVIDERS: ATTEND Nurse Practitioner Family
DX: I10 Essential (primary) hypertension (principal)

== ENCOUNTER → 2017-02-11 | Outpatient (CLI) | payer OTHER ==
[~2017-02-11] MED LIST changes: -ERGO1CAP41 PO; +ERGO500011 PO
[2017-02-11 08:52] LABS: ALT/SGPT 23 U/L (12-78); AST/SGOT 11 U/L (15-37); BLOOD UREA NITROGEN 16 mg/dl (7-18); BUN/CREATININE RATIO 30.9 (10-20); CALCIUM 8.5 mg/dl (8.5-10.1); CARBON DIOXIDE 29 mmol/L (21-32); CHLORIDE 109 mmol/L (98-107); CREATININE 0.51 mg/dl (0.60-1.20); GLUCOSE 102 mg/dl (70-99); POTASSIUM 3.6 mmol/L (3.5-5.1); SODIUM 145 mmol/L (136-145)
[2017-02-11 08:54] LABS: ALB/GLOB RATIO 0.8 (0.9-2); ALKALINE PHOSPHATASE 109 U/L (45-117)
== END ==
LOC: C.LABUPUNI 08:11
PROVIDERS: ATTEND Nurse Practitioner Family
DX: F01.51 Vascular dementia, unspecified severity, with behavioral disturbance (principal)

== ENCOUNTER → 2017-03-08 | Day surgery (SDC) | payer OTHER ==
[~2017-03-08] VITALS: Wt 65.0 kg
[~2017-03-08] MED LIST changes: -BISA10SU38 PR; +CEFAZOLIN SOD 1000MG/5 ML IV PUSH IV ONE; +CHOL2000 PO; -CPR500 PO; -DOCU-94 PO; -ERGO500011 PO; +FAMO20TA11 PO; +FENTANYL CITRATE INJ 50 MCG/1 ML 2 ML VIAL ONE; +GABA1CAP PO; +IPRASOL4 INH; -LCTL45 PO; +LIDOCAINE HCL 2% 2 ML VIAL (20MG/ML) ONE; +MULT-506 PO; -MULT-884 PO; -NTRS PO; -NYSS5 PO; -POTA10CA28 PO; +POTA20TA16 PO; +PROPOFOL IV EMULSION 10 MG/ML 20 ML VIAL IV ONE; +QUET1TAB30 PO; -QUET1TAB32 PO; -RXC/5 PO; -RXC5 PO; +SODIUM CHLORIDE 0.9% 500ML 500 ML IV ONE; -SORB70SO6 PO; -[UNRECOGNIZED DRUG - CODE] PO
--- NOTE | 2017-03-08 11:56 | Endo History and Physical ---
History & Physical Date of Service: Mar 08, 2017. Chief Complaint: Peg tube placement Referring Physician: History of Present Illness patient with Hx of CVA and worsening dysphagia and poor oral intake. Needs PEG Past Surgical History Hx Cardiac Surgery: No Hx Internal Defibrillator: No Hx Pacemaker: No Hx Abdominal Surgery: Yes (JOE) Hx of Implantable Prosthesis: No Hx Post-Op Nausea and Vomiting: No Hx Cancer Surgery: No Hx Thoracic Surgery: No Hx Orthopedic: No Hx Urinary Tract Surgery: No Social History Smoking Status: Unknown if Ever Smoked Hx Substance Use: No Hx Alcohol Use: No Allergies Coded Allergies: Morphine (Verified Allergy, Intermediate, hives, 03/08/17) Sulfa Antibiotics (Verified Allergy, Unknown, UNKNOWN, 03/08/17) Current Medications Reported Home Medications Medications Dose Route/Sig Max Daily Dose Days Date Category Dose Instructions Zofran (Ondansetron HCl) 4 Mg Tab 4 Mg PO Q4H PRN 03/02/17 Reported Vitamin D3 (Cholecalciferol) 2,000 Unit Cap 2 Cap PO DAILY 03/02/17 Reported Seroquel (Quetiapine Fumarate) 25 Mg Tab 25 Mg PO HS 03/02/17 Reported Senokot (Senna) 8.6 Mg Tab 1 Tab PO BID 03/02/17 Reported Klor-Con (Potassium Chloride) 20 Meq Tabcr 20 Meq PO QAM 03/02/17 Reported Multivitamin (Multivitamins) Tab 1 Tab PO DAILY 03/02/17 Reported Milk Of Magnesia (Magnesium Hydroxide) 30 Ml Susp 30 Ml PO DAILY PRN 03/02/17 Reported Levsin (Hyoscyamine Sulfate) 0.125 Mg Tab 0.125 Mg PO AC 03/02/17 Reported Klonopin (Clonazepam) 0.5 Mg Tab 0.5 Mg PO HS 03/02/17 Reported AND CAN USE PRN DAILY FOR ANXIETY Neurontin (Gabapentin) 100 Mg Cap 200 Mg PO BID 03/02/17 Reported Fleet Enema (Sodium Phosphate/Biphosphate) Sabi 1 Ea LA DAILY PRN 03/02/17 Reported Pepcid (Famotidine) 20 Mg Tab 20 Mg PO DAILY 03/02/17 Reported Duoneb (Ipratropium-Albuterol) 3 Ml Nebu 1 Treatment INH Q6H PRN 03/02/17 Reported Tylenol (Acetaminophen) 325 Mg Tab 650 Mg PO Q4H PRN 07/18/16 Reported Motrin (Ibuprofen) 600 Mg Tab 600 Mg PO Q6H PRN 07/18/16 Reported TAKE WITH FOOD Bisac-Evac (Bisacodyl) 10 Mg Sup 10 Mg LA UD PRN 07/18/16 Reported Vital Signs Weight (Kilograms): 65 Height (Feet): 0 Height (Inches): 0 Date Time Temp Pulse Resp B/P (MAP) Pulse Ox O2 Delivery O2 Flow Rate FiO2 03/08/17 11:25 36.7 70 16 108/83 (91) 94 Room Air Physical Exam General Appearance: no apparent distress Respiratory/Chest: Auscultation: breath sounds normal Cardiovascular: Heart Auscultation: RRR Abdomen: Inspection & Palpation: soft, non-distended Assessment and Plan Discussed with the Son and explained the risk, benefit and alternatives, risk of bleeding, infection and perforation. He agreed and consented. Will check Platelets count and INR. One dose of IV Cefazolin 1gm pre op.
[2017-03-08 12:12] LABS: PROTHROMBIN TIME (PATIENT) 10.8 SECONDS (9.0-12.0)
[2017-03-08 12:25] LABS: PLATELET COUNT 91 K/uL (130-400)
[2017-03-08 12:26] LABS: PLT ESTIMATE DECREASED
--- NOTE | 2017-03-08 13:23 | GI REPORT ---
Procedure Date: 03/08/2017 12:35 PM Procedure: Upper GI endoscopy Indications: Dysphagia Medicines: Monitored Anesthesia Care Complications: No immediate complications. Estimated Blood Loss: Estimated blood loss: none. Procedure: Pre-Anesthesia Assessment: - Prior to the procedure, a History and Physical was performed, and patient medications and allergies were reviewed. The patient is unable to give consent secondary to the patient being legally incompetent to consent. The risks and benefits of the procedure and the sedation options and risks were discussed with the patient's son. All questions were answered and informed consent was obtained. Patient identification and proposed procedure were verified by the physician and the nurse in the procedure room. Mental Status Examination: alert . Airway Examination: normal oropharyngeal airway and neck mobility. Respiratory Examination: clear to auscultation. CV Examination: normal. ASA Grade Assessment: III - A patient with severe systemic disease. After reviewing the risks and benefits, the patient was deemed in satisfactory condition to undergo the procedure. The anesthesia plan was to use monitored anesthesia care (MAC). Immediately prior to administration of medications, the patient was re-assessed for adequacy to receive sedatives. The heart rate, respiratory rate, oxygen saturations, blood pressure, adequacy of pulmonary ventilation, and response to care were monitored throughout the procedure. The physical status of the patient was re-assessed after the procedure. One dose of IV Cefazoline 1gm was given prior to the procedure. Labs checked with normal INR. After obtaining informed consent, the endoscope was passed under direct vision. Throughout the procedure, the patient's blood pressure, pulse, and oxygen saturations were monitored continuously. The Scope was introduced through the mouth, and advanced to the second part of duodenum. The upper GI endoscopy was accomplished without difficulty. The patient tolerated the procedure well. Findings: The examined esophagus was normal. There was evidence of a closed previous gastrostomy present in the gastric antrum. This was characterized by healthy appearing mucosa. The entire examined stomach was normal. The patient was placed in the supine position for PEG placement. The stomach was insufflated to appose gastric and abdominal mcintosh. A site was located in the body of the stomach with excellent transillumination and manual external pressure for placement. The abdominal wall was marked and prepped in a sterile manner. The area was anesthetized with 1 mL of 1% lidocaine. The trocar needle was introduced through the abdominal wall and into the stomach under direct endoscopic view. A snare was introduced through the endoscope and opened in the gastric lumen. The guide wire was passed through the trocar and into the open snare. The snare was closed around the guide wire. The endoscope and snare were removed, pulling the wire out through the mouth. A skin incision was made at the site of needle insertion. The externally removable 20 Fr Devonte-Cook gastrostomy tube was lubricated. The G-tube was tied to the guide wire and pulled through the mouth and into the stomach. The trocar needle was removed, and the gastrostomy tube was pulled out from the stomach through the skin. The external bumper was attached to the gastrostomy tube, and the tube was cut to remove the guide wire. The final position of the gastrostomy tube was confirmed by relook endoscopy, and skin marking noted to be 3.5 cm at the external bumper. The final tension and compression of the abdominal wall by the PEG tube and external bumper were checked and revealed that the bumper was moderately tight and mildly deforming the skin. The feeding tube was capped, and the tube site cleaned and dressed. The duodenal bulb and 2nd part of the duodenum were normal. Impression: - Normal esophagus. - Closed previous gastrostomy present characterized by healthy appearing mucosa. - Normal stomach. An externally removable PEG placement was successfully completed. - Normal duodenal bulb and 2nd part of the duodenum. - No specimens collected. Recommendation: - Discharge patient to a intermediate. - Please follow the post-PEG recommendations including: - NPO today x 6 hrs then water and Meds today. - Nutrition consult for formula and volume. - Change dressing once per day. - Dry dressing only, remove dressing after 1 week. - Check site for bleeding q 6 hrs for 24 hrs. - Apply abdominal binder for 1 week to avoid inadvertent dislodgement. - May use PEG tomorrow for feedings. Rakesh Pleitez MD 03/08/2017 1:23:04 PM This report has been signed electronically. Note Initiated On: 03/08/2017 12:35 PM I attest to the content of the Intraoperative Record and orders documented therein, exceptions below
--- NOTE | 2017-03-08 13:27 | Discharge Instructions ---
Endoscopy Patient Instructions Date / Procedure(s) Performed Mar 08, 2017. Other Allergy Information Coded Allergies: Morphine (Verified Allergy, Intermediate, hives, 03/08/17) Sulfa Antibiotics (Verified Allergy, Unknown, UNKNOWN, 03/08/17) Discharge Date / Findings Mar 08, 2017. EGD showed normal Esophagus, Prior closed gastrostomy, normal Duodenum. A new PEG tube was successfully placed. Medication Instructions Reported Home Medications Medications Dose Route/Sig Max Daily Dose Days Date Category Dose Instructions Zofran (Ondansetron HCl) 4 Mg Tab 4 Mg PO Q4H PRN 03/02/17 Reported Vitamin D3 (Cholecalciferol) 2,000 Unit Cap 2 Cap PO DAILY 03/02/17 Reported Seroquel (Quetiapine Fumarate) 25 Mg Tab 25 Mg PO HS 03/02/17 Reported Senokot (Senna) 8.6 Mg Tab 1 Tab PO BID 03/02/17 Reported Klor-Con (Potassium Chloride) 20 Meq Tabcr 20 Meq PO QAM 03/02/17 Reported Multivitamin (Multivitamins) Tab 1 Tab PO DAILY 03/02/17 Reported Milk Of Magnesia (Magnesium Hydroxide) 30 Ml Susp 30 Ml PO DAILY PRN 03/02/17 Reported Levsin (Hyoscyamine Sulfate) 0.125 Mg Tab 0.125 Mg PO AC 03/02/17 Reported Klonopin (Clonazepam) 0.5 Mg Tab 0.5 Mg PO HS 03/02/17 Reported AND CAN USE PRN DAILY FOR ANXIETY Neurontin (Gabapentin) 100 Mg Cap 200 Mg PO BID 03/02/17 Reported Fleet Enema (Sodium Phosphate/Biphosphate) Sabi 1 Ea MS DAILY PRN 03/02/17 Reported Pepcid (Famotidine) 20 Mg Tab 20 Mg PO DAILY 03/02/17 Reported Duoneb (Ipratropium-Albuterol) 3 Ml Nebu 1 Treatment INH Q6H PRN 03/02/17 Reported Tylenol (Acetaminophen) 325 Mg Tab 650 Mg PO Q4H PRN 07/18/16 Reported Motrin (Ibuprofen) 600 Mg Tab 600 Mg PO Q6H PRN 07/18/16 Reported TAKE WITH FOOD Bisac-Evac (Bisacodyl) 10 Mg Sup 10 Mg MS UD PRN 07/18/16 Reported Provider Instructions Activity Restrictions - No exercising or heavy lifting for 24 hours. - Do not drink alcohol the day of the procedure. - Do not drive a car or operate machinery until the day after the procedure. - Do not make any important decisions or sign important papers in 24 hours after the procedure. Following Day: - Return to full activity which may include returning to work/school. Diet Start your diet with liquids and light foods (jello, soup, juice, toast). Then eat your usual diet if not nauseated. Treatment For Common After Affects For mild abdominal pain, bloating, or excessive gas: - Rest - Eat lightly - Lie on right side Follow-Up Information Check endoscopy report for detailed recommendations. - Discharge patient to a prison. - Please follow the post-PEG recommendations including: - NPO today x 6 hrs then water and Meds today. - Nutrition consult for formula and volume. - Change dressing once per day. - Dry dressing only, remove dressing after 1 week. - Check site for bleeding q 6 hrs for 24 hrs. - Apply abdominal binder for 1 week to avoid inadvertent dislodgement. - May use PEG tomorrow for feedings Anesthesia Information What You Should Know You have had a procedure that required some medicine to reduce anxiety and discomfort. This treatment is called moderate sedation. After receiving the treatment, you may be sleepy, but you will be able to breathe on your own. The effects of the treatment may last for several hours. Follow these instructions along with Activity/Diet recommendations noted above: * Do NOT do anything where dizziness or clumsiness would be dangerous. * Rest quietly at home today, then you can be up and about tomorrow. * Have a responsible person stay with you the rest of today. * You may have had an I.V. today. If so, you may take the dressing off later today. Recommendations Call your doctor if: * Trouble breathing * Continuous vomiting for more than 24 hours * Temperature above 101 degrees * Severe abdominal pain or bloating * Pain not relieved by pain medicine ordered * There is increased drainage or redness from any incision * A large amount of rectal bleeding greater than 2-3 tablespoons. (If you had a polyp/s removed or have hemorrhoids, a small amount of blood - from the rectum is to be expected.) * You have any unanswered questions or concerns. IN THE EVENT OF A SERIOUS EMERGENCY, GO TO THE NEAREST EMERGENCY ROOM Your discharge instructions were prepared by provider Rakesh Pleitez. Patient Instructions Signature Page [facility] Patient (or Guardian) Signature/Date: I have read and understand the instructions given to me by my caregivers. Caregiver/RN/Doctor Signature/Date: The above-named patient and/or guardian has received patient instructions on this date. + Original Patient Signature Page (only) stays with chart. Please make copy for patient.
--- NOTE | 2017-03-08 13:37 | Anesthesiology Progress Note ---
Anesthesia Post Op Note Date & Time Mar 08, 2017 at 13:37 Vital Signs Vital Signs Past 12 Hours Date Time Temp Pulse Resp B/P (MAP) Pulse Ox O2 Delivery O2 Flow Rate FiO2 03/08/17 13:09 76 16 124/78 (93) 97 Room Air 03/08/17 11:25 36.7 70 16 108/83 (91) 94 Room Air Notes Mental Status: alert / awake / arousable, participated in evaluation Pt Amnestic to Procedure: Yes Nausea / Vomiting: adequately controlled Pain: adequately controlled Airway Patency, RR, SpO2: stable & adequate BP & HR: stable & adequate Hydration State: stable & adequate Anesthetic Complications: no major complications apparent
[2017-03-08 13:41] VITALS: BP 131/79; PULSE 57; O2SAT 95
== END | disposition home or self-care (01) ==
LOC: C.GI 10:50
PROVIDERS: ATTEND Student in an Organized Health Care Education/Training Program
DX: R13.10 Dysphagia, unspecified (principal); Z98.84 Bariatric surgery status; Z86.73 Personal history of transient ischemic attack (TIA), and cerebral infarction without residual deficits; Z79.899 Other long term (current) drug therapy

== ENCOUNTER → 2017-03-10 | Outpatient (CLI) | payer OTHER ==
[~2017-03-10] MED LIST changes: -CEFAZOLIN SOD 1000MG/5 ML IV PUSH IV ONE; -FENTANYL CITRATE INJ 50 MCG/1 ML 2 ML VIAL ONE; -LIDOCAINE HCL 2% 2 ML VIAL (20MG/ML) ONE; -PROPOFOL IV EMULSION 10 MG/ML 20 ML VIAL IV ONE; -SODIUM CHLORIDE 0.9% 500ML 500 ML IV ONE
[2017-03-10 09:13] LABS: BASO % 0.2 %; BASO ABS # 0.01 K/uL (0-0.2); HEMATOCRIT 40.8 % (37-47); HEMOGLOBIN 13.3 g/dL (12.0-16.0); LYMPH % 40.9 %; LYMPH ABS # 1.87 K/uL (1.2-3.4); MEAN CELL VOLUME 95.1 fL (80-100); MEAN CORPUSCULAR HGB CONC 32.6 g/dl (32-36); MEAN PLATELET VOLUME 10.7 fL (7.4-10.4); MONO % 9.6 %; MONO ABS # 0.44 K/uL (0.11-0.59); NEUT % 49.3 %; NEUT ABS # 2.25 K/uL (1.4-6.5); PLATELET COUNT 134 K/uL (130-400); RED CELL DISTRIBUTION WIDTH SD 45.1 fL (36.4-46.3); WHITE BLOOD COUNT 4.57 K/uL (4.8-10.8)
[2017-03-10 09:21] LABS: ALBUMIN 2.8 gm/dl (3.4-5.0); ALT/SGPT 18 U/L (12-78); BLOOD UREA NITROGEN 17 mg/dl (7-18); CALCIUM 8.4 mg/dl (8.5-10.1); CARBON DIOXIDE 29 mmol/L (21-32); GLUCOSE 98 mg/dl (70-99); POTASSIUM 3.9 mmol/L (3.5-5.1); SODIUM 141 mmol/L (136-145)
[2017-03-10 09:24] LABS: ALKALINE PHOSPHATASE 94 U/L (45-117); AST/SGOT 12 U/L (15-37); TOTAL PROTEIN 6.5 gm/dl (6.4-8.2)
--- NOTE | 2017-03-15 09:25 | CODING QUERY NO DIAGNOSIS ---
TREATMENT RENDERED WITHOUT A DIAGNOSIS 53 To promote full compliance with coding requirements relating to patient care, physician participation is requested in all cases of vocational rehab consultant uncertainty. Please assist us with providing a diagnosis/symptom for the test(s) below: A diagnosis/symptom was not documented on your Order. A valid diagnosis/symptom is required to bill all insurances. Please remember that we are unable to code a diagnosis of rule out, probable, possible, questionable, or suspected. DOS 03/10/17 Tests that require a diagnosis: *CBC w/DIFF DIAGNOSIS: *ON YOUR ORDER YOU HAVE DX CODE E78, THAT IS AN INVALID CODE, PLEASE ADD THE CORRECT CODE Provider Signature: Date: Thank you Anni [facility] Information Management Once completed, please kindly fax back to [phone] For questions please call [phone]
== END ==
LOC: C.LABUPUNI 08:59
PROVIDERS: ATTEND Nurse Practitioner Family
DX: I10 Essential (primary) hypertension (principal); E78.9 Disorder of lipoprotein metabolism, unspecified

== ENCOUNTER → 2017-03-17 | Outpatient (CLI) | payer OTHER ==
[2017-03-17 08:40] LABS: BLOOD UREA NITROGEN 13 mg/dl (7-18); CALCIUM 8.6 mg/dl (8.5-10.1); CARBON DIOXIDE 31 mmol/L (21-32); CREATININE 0.33 mg/dl (0.60-1.20); GLUCOSE 92 mg/dl (70-99); POTASSIUM 3.7 mmol/L (3.5-5.1); SODIUM 140 mmol/L (136-145)
--- NOTE | 2017-04-01 09:17 | CODING QUERY NO DIAGNOSIS ---
TREATMENT RENDERED WITHOUT A DIAGNOSIS : 53 To promote full compliance with coding requirements relating to patient care, physician participation is requested in all cases of computer language coder uncertainty. Please assist us with providing a diagnosis/symptom for the test(s) below: A diagnosis/symptom was not documented on your Order. A valid diagnosis/symptom is required to bill all insurances. Please remember that we are unable to code a diagnosis of rule out, probable, possible, questionable, or suspected. Tests that require a diagnosis: DOS: 03/17/17 * PARTIAL RENAL PROFILE DIAGNOSIS: Provider Signature: Date: Thank you Nan Manning [facility] [employer] [facility] Information Management Once completed, please kindly fax back to [phone] For questions please call [phone]
== END ==
LOC: C.LABUPUNI 08:18
PROVIDERS: ATTEND Nurse Practitioner Family
DX: R30.0 Dysuria (principal)

== ENCOUNTER → 2017-03-24 | Outpatient (CLI) | payer OTHER ==
[2017-03-24 09:23] LABS: BLOOD UREA NITROGEN 16 mg/dl (7-18); BUN/CREATININE RATIO 40.3 (10-20); CALCIUM 8.5 mg/dl (8.5-10.1); CARBON DIOXIDE 30 mmol/L (21-32); CHLORIDE 107 mmol/L (98-107); GLUCOSE 81 mg/dl (70-99); POTASSIUM 4.2 mmol/L (3.5-5.1); SODIUM 142 mmol/L (136-145)
== END ==
LOC: C.LABUPUNI 08:57
PROVIDERS: ATTEND Nurse Practitioner Family
DX: I10 Essential (primary) hypertension (principal)

== ENCOUNTER → 2017-03-31 | Outpatient (CLI) | payer OTHER ==
[2017-03-31 10:22] LABS: BLOOD UREA NITROGEN 17 mg/dl (7-18); CREATININE 0.43 mg/dl (0.60-1.20); GLUCOSE 101 mg/dl (70-99)
[2017-03-31 10:23] LABS: CALCIUM 8.6 mg/dl (8.5-10.1); CARBON DIOXIDE 29 mmol/L (21-32); POTASSIUM 4.1 mmol/L (3.5-5.1); SODIUM 139 mmol/L (136-145)
== END | disposition home or self-care (01) ==
LOC: C.LABUPUNI 08:31
PROVIDERS: ATTEND Nurse Practitioner Family
DX: I10 Essential (primary) hypertension (principal)

== ENCOUNTER → 2017-04-07 | Outpatient (CLI) | payer OTHER ==
[2017-04-07 09:20] LABS: BLOOD UREA NITROGEN 19 mg/dl (7-18); CALCIUM 8.6 mg/dl (8.5-10.1); CARBON DIOXIDE 31 mmol/L (21-32); CREATININE 0.33 mg/dl (0.60-1.20); GLUCOSE 98 mg/dl (70-99); POTASSIUM 3.9 mmol/L (3.5-5.1); SODIUM 141 mmol/L (136-145)
== END ==
LOC: C.LABUPUNI 08:41
PROVIDERS: ATTEND Nurse Practitioner Family
DX: I10 Essential (primary) hypertension (principal)

== ENCOUNTER → 2017-04-11 | Outpatient (CLI) | payer OTHER ==
[2017-04-11 09:22] LABS: ALBUMIN 2.4 gm/dl (3.4-5.0); ALT/SGPT 21 U/L (12-78); BLOOD UREA NITROGEN 22 mg/dl (7-18); CALCIUM 8.7 mg/dl (8.5-10.1); CARBON DIOXIDE 30 mmol/L (21-32); CREATININE 0.31 mg/dl (0.60-1.20); GLUCOSE 80 mg/dl (70-99); SODIUM 140 mmol/L (136-145)
[2017-04-11 09:24] LABS: ALKALINE PHOSPHATASE 120 U/L (45-117); AST/SGOT 11 U/L (15-37); TOTAL PROTEIN 6.3 gm/dl (6.4-8.2)
== END | disposition home or self-care (01) ==
LOC: C.LABUPUNI 07:38
PROVIDERS: ATTEND Nurse Practitioner Family
DX: I10 Essential (primary) hypertension (principal)

== ENCOUNTER → 2017-05-02 | Outpatient (CLI) | payer OTHER ==
[2017-05-02 08:27] LABS: HEMATOCRIT 41.3 % (37-47); HEMOGLOBIN 13.2 g/dL (12.0-16.0); MEAN CELL VOLUME 98.1 fL (80-100); MEAN CORPUSCULAR HEMOGLOBIN 31.4 pg (25-34); PLATELET COUNT 164 K/uL (130-400); RED CELL DISTRIBUTION WIDTH CV 14.1 % (11.5-14.5); WHITE BLOOD COUNT 4.21 K/uL (4.8-10.8)
[2017-05-02 08:39] LABS: BLOOD UREA NITROGEN 16 mg/dl (7-18); CALCIUM 8.8 mg/dl (8.5-10.1); CARBON DIOXIDE 30 mmol/L (21-32); CREATININE 0.46 mg/dl (0.60-1.20); GLUCOSE 83 mg/dl (70-99); POTASSIUM 3.9 mmol/L (3.5-5.1); SODIUM 141 mmol/L (136-145)
[2017-05-02 08:51] LABS: INFLUENZA B ANTIGEN Neg for Influ B (NEG)
== END ==
LOC: C.LABUPUNI 07:36
PROVIDERS: ATTEND Nurse Practitioner Family
DX: R50.9 Fever, unspecified (principal); R11.2 Nausea with vomiting, unspecified; I10 Essential (primary) hypertension

== ENCOUNTER → 2017-06-06 | Outpatient (CLI) | payer OTHER ==
[~2017-06-06] MED LIST changes: +ACET-1693 PO; -ACET325T96 PO; +GABA100C13 PO; -GABA1CAP PO
[2017-06-06 10:57] LABS: ALBUMIN 2.7 gm/dl (3.4-5.0); ALT/SGPT 18 U/L (12-78); BLOOD UREA NITROGEN 19 mg/dl (7-18); CALCIUM 8.9 mg/dl (8.5-10.1); CARBON DIOXIDE 30 mmol/L (21-32); CREATININE 0.45 mg/dl (0.60-1.20); GLUCOSE 86 mg/dl (70-99); POTASSIUM 4.4 mmol/L (3.5-5.1); SODIUM 139 mmol/L (136-145)
[2017-06-06 11:00] LABS: ALKALINE PHOSPHATASE 107 U/L (45-117); AST/SGOT 13 U/L (15-37); TOTAL PROTEIN 6.9 gm/dl (6.4-8.2)
== END ==
LOC: C.LABUPUNI 07:54
PROVIDERS: ATTEND Nurse Practitioner Family
DX: I10 Essential (primary) hypertension (principal)

== ENCOUNTER → 2017-06-08 | Outpatient (CLI) | payer OTHER ==
[2017-06-08 10:21] LABS: HEMATOCRIT 43.5 % (37-47); HEMOGLOBIN 14.5 g/dL (12.0-16.0); MEAN CELL VOLUME 94.8 fL (80-100); MEAN CORPUSCULAR HEMOGLOBIN 31.6 pg (25-34); MEAN PLATELET VOLUME 11.3 fL (7.4-10.4); PLATELET COUNT 160 K/uL (130-400); RED CELL DISTRIBUTION WIDTH CV 13.6 % (11.5-14.5); RED CELL DISTRIBUTION WIDTH SD 46.9 fL (36.4-46.3); WHITE BLOOD COUNT 8.04 K/uL (4.8-10.8)
[2017-06-08 10:29] LABS: BLOOD UREA NITROGEN 19 mg/dl (7-18); CALCIUM 8.8 mg/dl (8.5-10.1); CARBON DIOXIDE 30 mmol/L (21-32); CREATININE 0.54 mg/dl (0.60-1.20); GLUCOSE 125 mg/dl (70-99); POTASSIUM 3.9 mmol/L (3.5-5.1); SODIUM 139 mmol/L (136-145)
[2017-06-08 10:35] LABS: MEAN CORPUSCULAR HGB CONC 33.3 g/dl (32-36)
== END ==
LOC: C.LABUPUNI 10:09
PROVIDERS: ATTEND Nurse Practitioner Family
DX: Z87.440 Personal history of urinary (tract) infections (principal)

== ENCOUNTER → 2017-06-09 | Outpatient (CLI) | payer OTHER ==
[2017-06-09 08:21] LABS: HEMATOCRIT 41.2 % (37-47); HEMOGLOBIN 12.7 g/dL (12.0-16.0); MEAN CORPUSCULAR HEMOGLOBIN 29.6 pg (25-34); MEAN CORPUSCULAR HGB CONC 30.8 g/dl (32-36); MEAN PLATELET VOLUME 11.6 fL (7.4-10.4); PLATELET COUNT 135 K/uL (130-400); RED CELL DISTRIBUTION WIDTH CV 13.9 % (11.5-14.5); RED CELL DISTRIBUTION WIDTH SD 49.1 fL (36.4-46.3); WHITE BLOOD COUNT 4.05 K/uL (4.8-10.8)
[2017-06-09 08:43] LABS: BLOOD UREA NITROGEN 18 mg/dl (7-18); CALCIUM 8.7 mg/dl (8.5-10.1); CARBON DIOXIDE 28 mmol/L (21-32); CREATININE 0.41 mg/dl (0.60-1.20); GLUCOSE 116 mg/dl (70-99); POTASSIUM 3.9 mmol/L (3.5-5.1); SODIUM 139 mmol/L (136-145)
== END ==
LOC: C.LABUPUNI 08:00
PROVIDERS: ATTEND Nurse Practitioner Family
DX: I10 Essential (primary) hypertension (principal); I69.919 Unspecified symptoms and signs involving cognitive functions following unspecified cerebrovascular disease

== ENCOUNTER → 2017-08-09 | Outpatient (CLI) | payer OTHER ==
[~2017-08-09] MED LIST changes: +POTA-639 PO; -POTA20TA16 PO
[2017-08-09 10:30] LABS: CREATININE 0.43 mg/dl (0.60-1.20); GLUCOSE 86 mg/dl (70-99)
[2017-08-09 12:27] LABS: ALBUMIN 2.5 gm/dl (3.4-5.0); ALKALINE PHOSPHATASE 106 U/L (45-117); ALT/SGPT 20 U/L (12-78); AST/SGOT 10 U/L (15-37); BLOOD UREA NITROGEN 15 mg/dl (7-18); CALCIUM 8.7 mg/dl (8.5-10.1); CARBON DIOXIDE 31 mmol/L (21-32); POTASSIUM 3.9 mmol/L (3.5-5.1); SODIUM 140 mmol/L (136-145); TOTAL PROTEIN 6.4 gm/dl (6.4-8.2)
== END | disposition home or self-care (01) ==
LOC: C.LABUPUNI 09:13
PROVIDERS: ATTEND Nurse Practitioner Family
DX: I10 Essential (primary) hypertension (principal)

== ENCOUNTER → 2017-10-11 | Outpatient (CLI) | payer OTHER ==
[~2017-10-11] MED LIST changes: -CLON0.5T3 PO; +GABA-1693 PO; -GABA100C13 PO; +IPRA-64 INH; -IPRASOL4 INH; +KLN/5 PO
[2017-10-11 09:44] LABS: ALBUMIN 2.4 gm/dl (3.4-5.0); ALKALINE PHOSPHATASE 91 U/L (45-117); ALT/SGPT 21 U/L (12-78); AST/SGOT 14 U/L (15-37); BLOOD UREA NITROGEN 19 mg/dl (7-18); CALCIUM 9.1 mg/dl (8.5-10.1); CARBON DIOXIDE 30 mmol/L (21-32); CREATININE 0.42 mg/dl (0.60-1.20); GLUCOSE 78 mg/dl (70-99); POTASSIUM 3.8 mmol/L (3.5-5.1); SODIUM 143 mmol/L (136-145); TOTAL PROTEIN 6.3 gm/dl (6.4-8.2)
--- NOTE | 2017-10-30 12:44 | CODING QUERY NO DIAGNOSIS ---
TREATMENT RENDERED WITHOUT A DIAGNOSIS To promote full compliance with coding requirements relating to patient care, physician participation is requested in all cases of analysis manager uncertainty. Please assist us with providing a diagnosis/symptom for the test(s) below: A diagnosis/symptom was not documented on your Order. A valid diagnosis/symptom is required to bill all insurances. Please remember that we are unable to code a diagnosis of rule out, probable, possible, questionable, or suspected. Tests that require a diagnosis: DOS: 10/11/17 * CMP DIAGNOSIS: Provider Signature: Date: Thank you Jayshree May [employer] Information Management Once completed, please kindly fax back to [phone] For questions please call [phone]
== END ==
LOC: C.LABUPUNI 09:06
PROVIDERS: ATTEND Nurse Practitioner Family
DX: E87.6 Hypokalemia (principal)

== ENCOUNTER → 2017-10-21 | Outpatient (CLI) | payer OTHER ==
--- NOTE | 2017-10-30 16:54 | CODING QUERY NO DIAGNOSIS ---
TREATMENT RENDERED WITHOUT A DIAGNOSIS To promote full compliance with coding requirements relating to patient care, physician participation is requested in all cases of rubber roller grinder uncertainty. Please assist us with providing a diagnosis/symptom for the test(s) below: A diagnosis/symptom was not documented on your Order. A valid diagnosis/symptom is required to bill all insurances. Please remember that we are unable to code a diagnosis of rule out, probable, possible, questionable, or suspected. Tests that require a diagnosis: DOS: 10/21/17 * U/A AND C&S DIAGNOSIS: * VAGINAL CULTURE DIAGNOSIS: Provider Signature: Date: Thank you Jennifer Cruz [facility] Information Management Once completed, please kindly fax back to [phone] For questions please call [phone]
== END ==
LOC: C.LABUPUNI 15:30
PROVIDERS: ATTEND Nurse Practitioner Family
DX: B37.9 Candidiasis, unspecified (principal)

== ENCOUNTER → 2017-10-22 | Outpatient (CLI) | payer OTHER | LOC: C.LABUPUNI 10:50 | PROVIDERS: ATTEND Nurse Practitioner Family | DX: N89.8 Other specified noninflammatory disorders of vagina (principal) ==

== ENCOUNTER → 2017-11-02 | Outpatient (CLI) | payer OTHER ==
[2017-11-02 08:45] LABS: ALBUMIN 2.5 gm/dl (3.4-5.0); ALKALINE PHOSPHATASE 99 U/L (45-117); ALT/SGPT 19 U/L (12-78); AST/SGOT 13 U/L (15-37); BLOOD UREA NITROGEN 15 mg/dl (7-18); CALCIUM 8.8 mg/dl (8.5-10.1); CARBON DIOXIDE 32 mmol/L (21-32); CREATININE 0.38 mg/dl (0.60-1.20); GLUCOSE 79 mg/dl (70-99); SODIUM 142 mmol/L (136-145); TOTAL PROTEIN 6.2 gm/dl (6.4-8.2)
== END | disposition home or self-care (01) ==
LOC: C.LABUPNIT 08:01
PROVIDERS: ATTEND Nurse Practitioner Family
DX: I10 Essential (primary) hypertension (principal)

== ENCOUNTER 2019-08-26 16:03 | Inpatient (IN) ==
[2019-08-26] MEDS ORDERED: PIPERACILLIN/TAZOBACTAM 4.5 GM/120 ML BAG IV ONE (16:16)
[2019-08-26] MEDS ORDERED: PIPERACILL/TAZOBAC CONSULT ACTIVE PRN ×2 (16:16→21:52)
[2019-08-26] MEDS ORDERED: SODIUM CHLORIDE 0.9% 1000ML 1,000 ML IV ONE ×2 (16:16→18:15)
--- NOTE | 2019-08-26 16:18 | Emergency Department Note ---
History of Present Illness General Chief complaint: Respiratory Distress Stated complaint: RESP. DISTRESS, Time Seen by Provider: 08/26/19 16:08 Source: EMS Mode of arrival: EMS Limitations: altered mental status and clinical acuity History of Present Illness Provider complaint: ams, fever, sob Onset (ago): unknown This is 63-year-old female brought in by EMS from a intermediate. HPI is li mited due to patient's dementia as well as work of breathing and clinical acuity. Per EMS staff at their noted that the patient had a fever earlier in the day and gave her Tylenol. Upon recheck patient appeared to have increased trouble breathing. They also then noticed that patient had had an episode of vomiting. On EMS arrival, they state the patient was tachypneic, with increased work of breathing, actively vomiting, and recovering difficulty obtaining an accurate oxygen saturation level. Patient was placed on 15 L via nonrebreather. Records accompanying patient from the intermediate also have a pulsed form which states patient is a DNR/DNI. Patient here was able to follow a few simple commands, however otherwise cannot provide any additional history. During my exam patient began to actively vomit, and she was suctioned the Atlas5D suctioning catheter at bedside. Emesis was yellow and nonbloody. Pt seen during a time of high acuity and national emergency pandemic while w earing PPE. Home Medications Home Medications Medication Instructions Recorded Confirmed Type Fleet Enema 118 ml ME DIRECTED PRN 11/14/18 08/26/19 History Probiotic 0 mmu cells FEEDING TUBE BID 11/14/18 08/26/19 History acetaminophen [Tylenol] 650 mg FEEDING TUBE Q6H PRN 11/14/18 08/26/19 History bisacodyl [Dulcolax (bisacodyl)] 10 mg ME DIRECTED PRN 11/14/18 08/26/19 History clonazepam [Klonopin] 0.5 mg FEEDING TUBE BID 11/14/18 08/26/19 History docusate sodium See Rx Instructions .ROUTE .COMPLEX 11/14/18 08/26/19 History famotidine 20 mg FEEDING TUBE DAILY 11/14/18 08/26/19 History gabapentin 400 mg FEEDING TUBE BID 11/14/18 08/26/19 History lactulose 30 g FEEDING TUBE BID 11/14/18 08/26/19 History magnesium hydroxide [Milk of 15 ml FEEDING TUBE DIRECTED PRN 11/14/18 08/26/19 History Magnesia] oxycodone 10 mg FEEDING TUBE Q6H PRN 11/14/18 08/26/19 History sennosides [senna] 8.6 mg FEEDING TUBE BID 11/14/18 08/26/19 History Tar Gel 1 applic TOPICAL 2XWK 08/26/19 08/26/19 History cholecalciferol (vitamin D3) 4,000 unit FEEDING TUBE DAILY 08/26/19 08/26/19 History multivitamin with minerals See Rx Instructions .ROUTE .COMPLEX 08/26/19 08/26/19 History [Multiple Vitamin-Minerals] potassium chloride 10 meq FEEDING TUBE BID 08/26/19 08/26/19 History selenium sulfide [Selsun Blue] 1 applic TOPICAL 2XWK 08/26/19 08/26/19 History Allergies Allergy/AdvReac Type Severity Reaction Status Date / Time morphine Allergy Intermediate Hives Verified 08/26/19 17:14 Sulfa (Sulfonamide Allergy Unknown Unknown Verified 08/26/19 17:14 Antibiotics) Past Med/Surg History Medical History Anxiety Aphasia Contracture of knee R/L Dementia UNSPECIFIED WITH BEHAVIORIAL DISTURBANCE Depression Dysphagia GERD (gastroesophageal reflux disease) Hemiplegia AND HEMIPARESIS-LEFT SIDE Hydrocephalus COMMUNICATING Hypertension Stroke Tremor Surgical History History of brain surgery History of gastrostomy tube placement Social History Preferred Language: Romansh Communication Ability: Unable At Risk Specialist Required: No Beliefs That Will Affect Care: None Current Living Situation: Care Home Current Living Situation Comment: [facility] OF [facility] Feels Safe at Home: Yes Smoking Status: Never smoker Hx Alcohol Use: No Hx Substance Use: No Review of Systems Unobtainable due to cognitive status Physical Exam Vital Signs Vital Signs - 24 hr 08/26/19 16:13 08/26/19 16:17 08/26/19 16:19 Temperature Temperature Source Pulse Rate 90 94 H Pulse Rate [Apical] Pulse Rate from SpO2 Sensor 92 H 90 Pulse Rhythm Respiratory Rate 51 H 44 H Respiratory Effort / Characteristics Short of Breath Respiratory Depth Respiratory Pattern Tachypnea Blood Pressure 178/81 H Blood Pressure [Left Arm] Blood Pressure Mean 123 Blood Pressure Mean [Left Arm] Pulse Oximetry 93 93 Oxygen Delivery Method Non-rebreather Oxygen Flow Rate 15 Fraction of Inspired Oxygen Sepsis Recent Fever Within 48 Hours Sepsis New/Unexplained Change in Mental Status Sepsis Action Taken by Nursing 08/26/19 16:20 08/26/19 16:26 08/26/19 16:30 Temperature 39 C H Temperature Source Axillary Pulse Rate 88 110 H 93 H Pulse Rate [Apical] Pulse Rate from SpO2 Sensor 91 H 93 H Pulse Rhythm Regular Respiratory Rate 32 H 45 H 39 H Respiratory Effort / Characteristics Short of Breath Respiratory Depth Respiratory Pattern Blood Pressure 178/81 H Blood Pressure [Left Arm] Blood Pressure Mean 113 Blood Pressure Mean [Left Arm] Pulse Oximetry 90 94 94 Oxygen Delivery Method Non-rebreather Oxygen Flow Rate 15 Fraction of Inspired Oxygen Sepsis Recent Fever Within 48 Hours Yes Sepsis New/Unexplained Change in Mental Status Yes Sepsis Action Taken by Nursing Physician Notified 08/26/19 16:40 08/26/19 16:50 08/26/19 16:56 Temperature Temperature Source Pulse Rate 102 H 106 H 106 H Pulse Rate [Apical] Pulse Rate from SpO2 Sensor 104 H 108 H 105 H Pulse Rhythm Respiratory Rate 35 H 33 H 35 H Respiratory Effort / Characteristics Respiratory Depth Respiratory Pattern Blood Pressure 143/84 H Blood Pressure [Left Arm] Blood Pressure Mean 104 Blood Pressure Mean [Left Arm] Pulse Oximetry 97 96 94 Oxygen Delivery Method Oxygen Flow Rate Fraction of Inspired Oxygen Sepsis Recent Fever Within 48 Hours Sepsis New/Unexplained Change in Mental Status Sepsis Action Taken by Nursing 08/26/19 16:59 08/26/19 17:00 08/26/19 17:01 Temperature Temperature Source Pulse Rate 102 H 105 H Pulse Rate [Apical] 107 H Pulse Rate from SpO2 Sensor 102 H 104 H Pulse Rhythm Respiratory Rate 39 H 36 H 36 H Respiratory Effort / Characteristics Short of Breath Respiratory Depth Respiratory Pattern Blood Pressure 126/82 Blood Pressure [Left Arm] 143/84 H Blood Pressure Mean 92 Blood Pressure Mean [Left Arm] 103 Pulse Oximetry 94 96 96 Oxygen Delivery Method Non-rebreather Oxygen Flow Rate 15 Fraction of Inspired Oxygen Sepsis Recent Fever Within 48 Hours Sepsis New/Unexplained Change in Mental Status Sepsis Action Taken by Nursing 08/26/19 17:07 08/26/19 17:10 08/26/19 17:15 Temperature Temperature Source Pulse Rate 101 H 98 H 100 H Pulse Rate [Apical] Pulse Rate from SpO2 Sensor 99 H 100 H Pulse Rhythm Respiratory Rate 30 H 33 H 31 H Respiratory Effort / Characteristics Spontaneous Respiratory Depth Shallow Respiratory Pattern Rapid/Shallow Tachypnea Blood Pressure 127/75 Blood Pressure [Left Arm] Blood Pressure Mean 80 Blood Pressure Mean [Left Arm] Pulse Oximetry 96 96 97 Oxygen Delivery Method Oxygen Flow Rate Fraction of Inspired Oxygen 80 Sepsis Recent Fever Within 48 Hours Sepsis New/Unexplained Change in Mental Status Sepsis Action Taken by Nursing 08/26/19 17:20 08/26/19 17:30 Temperature Temperature Source Pulse Rate 101 H Pulse Rate [Apical] 98 H Pulse Rate from SpO2 Sensor 100 H Pulse Rhythm Respiratory Rate 30 H 26 H Respiratory Effort / Characteristics Respiratory Depth Respiratory Pattern Blood Pressure Blood Pressure [Left Arm] 125/72 Blood Pressure Mean Blood Pressure Mean [Left Arm] 89 Pulse Oximetry 97 98 Oxygen Delivery Method BiPAP Oxygen Flow Rate Fraction of Inspired Oxygen Sepsis Recent Fever Within 48 Hours Sepsis New/Unexplained Change in Mental Status Sepsis Action Taken by Nursing GENERAL: alert, well appearing, well nourished, no distress, non-toxic HEAD: Obvious chronic appearing deformities from prior surgeries EYE EXAM: normal conjunctiva, PERRL and EOM's grossly intact OROPHARYNX: Patient actively vomiting, no blood noted in the oropharynx NECK: supple, no nuchal rigidity, no adenopathy, non-tender LUNGS: Increased work of breathing, tachypnea, bilateral rhonchi and rales HEART: no murmurs, S1 normal and S2 normal, tachycardia noted on telemetry ABDOMEN: abdomen soft, non-tender, normo-active bowel sounds, no masses, no rebound or guarding. PEG tube noted in place. No surrounding discharge or d rainage, no surrounding erythema. BACK: Back is symmetrical on inspection and there is no deformity, no midline tenderness, no CVA tenderness. SKIN: no rashes and no bruising, no petechiae UPPER EXTREMITIES: upper extremities are grossly normal. No evidence of trauma, nml pulses b/l. LOWER EXTREMITIES: No pitting edema. No evidence of trauma, nml pulses b/l. NEURO EXAM: Patient able to follow very few and very simple commands, otherwise nonverbal, actively retching, eyes open, patient does have a prior history of stroke and dementia Course Course 1636: IV established and labs sent. RT setting up bipap. 165: I updated the son in [place]. 1702: Patient appears markedly more comfortable and less tachypneic with decreased work of breathing now that she is on BiPAP. No recurrent vomiting since being given a dose of Zofran. 1715: Son updated. Administered Medications Atropine Sulfate (Atropine Sulfate 1% Oph Soln) 3 drops PO Q2H PRN PRN Reason: secretions Stop: 09/26/19 11:44 Last Admin: 08/28/19 21:34 Dose: 3 drops Documented by: [id number] Admin: 08/28/19 17:13 Dose: 3 drops Documented by: [id number] Lorazepam (Ativan) 0.5 mg SL Q4H PRN PRN Reason: Anxiety/Agitation Stop: 09/27/19 14:29 Last Admin: 08/28/19 21:34 Dose: 0.5 mg Documented by: [id number] Miscellaneous (Check Scopolamine Patch Placement) 1 ea N/A QS LA Stop: 09/26/19 15:59 Last Admin: 08/29/19 00:02 Dose: 1 ea Documented by: [id number] Admin: 08/28/19 17:13 Dose: 1 ea Documented by: [id number] Admin: 08/28/19 09:01 Dose: 1 ea Documented by: [id number] Admin: 08/27/19 23:45 Dose: 1 ea Documented by: [id number] Admin: 08/27/19 15:10 Dose: 1 ea Documented by: [id number] Scopolamine (Transderm-Scop) 1.5 mg TD Q72H LA Stop: 09/26/19 11:59 Last Admin: 08/27/19 12:08 Dose: 1.5 mg Documented by: [id number] Discontinued Medications Acetaminophen (Tylenol Soln) 650 mg GT Q6H PRN PRN Reason: Pain or Fever Stop: 09/27/19 00:15 Last Admin: 08/28/19 00:28 Dose: 650 mg Documented by: [id number] Clonazepam (Klonopin) 0.5 mg PO BID LA Stop: 09/26/19 20:59 Last Admin: 08/28/19 09:02 Dose: Not Given Documented by: [id number] Admin: 08/27/19 21:06 Dose: 0.5 mg Documented by: [id number] Clonazepam (Klonopin) 0.5 mg PO NOW STA Stop: 08/27/19 17:22 Last Admin: 08/27/19 19:38 Dose: Not Given Documented by: [id number] Docusate Sodium (Colace) 100 mg PEG BID [facility] Stop: 09/27/19 11:29 Last Admin: 08/28/19 11:33 Dose: Not Given Documented by: [id number] Famotidine (Pepcid) 20 mg PO DAILY LA Stop: 09/27/19 10:59 Last Admin: 08/28/19 12:26 Dose: Not Given Documented by: [id number] Gabapentin (Neurontin) 400 mg PEG BID [facility] Stop: 09/26/19 20:59 Last Admin: 08/28/19 09:02 Dose: Not Given Documented by: [id number] Admin: 08/27/19 21:02 Dose: 400 mg Documented by: [id number] Heparin Sodium (Porcine) (Heparin Sodium (Porcine)) 5,000 units SQ Q12 LA Stop: 09/25/19 21:51 Last Admin: 08/28/19 09:02 Dose: 5,000 units Documented by: [id number] Cosigned by: [id number] Admin: 08/27/19 21:02 Dose: 5,000 units Documented by: [id number] Cosigned by: [id number] Admin: 08/27/19 08:14 Dose: 5,000 units Documented by: [id number] Cosigned by: [id number] Admin: 08/26/19 22:30 Dose: 5,000 units Documented by: [id number] Cosigned by: [id number] Sodium Chloride (Nss 1000ml) 1,000 mls @ 999 mls/hr IV .Q1H1M ONE Stop: 08/26/19 17:16 Last Infusion: 08/26/19 18:38 Dose: 0 mls/hr Documented by: [id number] Admin: 08/26/19 16:52 Dose: 999 mls/hr Documented by: [id number] Piperacillin Sod/Tazobactam Sod (Zosyn) 4.5 gm in 120 mls @ 240 mls/hr IV NOW ONE Stop: 08/26/19 16:45 Last Infusion: 08/26/19 17:32 Dose: 0 mls/hr Documented by: [id number] Admin: 08/26/19 16:52 Dose: 240 mls/hr Documented by: [id number] Acetaminophen (Ofirmev) 1,000 mg in 100 mls @ 400 mls/hr IV NOW STA Stop: 08/26/19 16:40 Last Infusion: 08/26/19 17:32 Dose: 0 mls/hr Documented by: [id number] Admin: 08/26/19 16:52 Dose: 400 mls/hr Documented by: [id number] Vancomycin HCl 1,500 mg/ (Sodium Chloride) 530 mls @ 200 mls/hr IV NOW ONE Stop: 08/26/19 20:52 Last Infusion: 08/27/19 00:10 Dose: 0 mls/hr Documented by: [id number] Admin: 08/26/19 19:30 Dose: 200 mls/hr Documented by: [id number] Sodium Chloride (Nss 1000ml) 1,000 mls @ 999 mls/hr IV .Q1H1M ONE Stop: 08/26/19 19:15 Last Infusion: 08/26/19 21:06 Dose: 0 mls/hr Documented by: [id number] Admin: 08/26/19 19:30 Dose: 999 mls/hr Documented by: [id number] Potassium Chloride/Dextrose/Sod Cl (D5nss + 20meq Kcl) 20 meq in 1,000 mls @ 100 mls/hr IV .Q10H LA Stop: 09/25/19 20:34 Last Infusion: 08/28/19 14:41 Dose: 0 mls/hr Documented by: [id number] Admin: 08/28/19 14:18 Dose: Not Given Documented by: [id number] Admin: 08/28/19 05:50 Dose: 100 mls/hr Documented by: [id number] Infusion: 08/28/19 03:52 Dose: 100 mls/hr Documented by: [id number] Admin: 08/27/19 17:52 Dose: 100 mls/hr Documented by: [id number] Infusion: 08/27/19 17:52 Dose: 100 mls/hr Documented by: [id number] Admin: 08/27/19 08:14 Dose: 100 mls/hr Documented by: [id number] Infusion: 08/27/19 08:14 Dose: 100 mls/hr Documented by: [id number] Admin: 08/26/19 23:08 Dose: 100 mls/hr Documented by: [id number] Methylprednisolone 40 mg/ (Syringe) 0.64 mls @ 1.5 mls/min IV Q8H LA Stop: 09/26/19 05:59 Last Admin: 08/28/19 14:18 Dose: Not Given Documented by: [id number] Admin: 08/28/19 05:50 Dose: 1.5 mls/min Documented by: [id number] Admin: 08/27/19 21:02 Dose: 1.5 mls/min Documented by: [id number] Admin: 08/27/19 14:04 Dose: 1.5 mls/min Documented by: [id number] Admin: 08/27/19 05:43 Dose: 1.5 mls/min Documented by: [id number] Piperacillin Sod/Tazobactam Sod (Zosyn) 3.375 gm in 115 mls @ 30 mls/hr IV Q8H LA Stop: 09/02/19 22:29 Last Admin: 08/28/19 14:19 Dose: Not Given Documented by: [id number] Infusion: 08/28/19 11:31 Dose: 0 mls/hr Documented by: [id number] Admin: 08/28/19 05:50 Dose: 30 mls/hr Documented by: [id number] Infusion: 08/28/19 03:35 Dose: 0 mls/hr Documented by: [id number] Admin: 08/27/19 23:45 Dose: 30 mls/hr Documented by: [id number] Infusion: 08/27/19 18:43 Dose: 0 mls/hr Documented by: [id number] Admin: 08/27/19 14:19 Dose: 30 mls/hr Documented by: [id number] Infusion: 08/27/19 09:35 Dose: 0 mls/hr Documented by: [id number] Admin: 08/27/19 05:43 Dose: 30 mls/hr Documented by: [id number] Infusion: 08/27/19 02:53 Dose: 0 mls/hr Documented by: [id number] Admin: 08/26/19 22:30 Dose: 30 mls/hr Documented by: [id number] Vancomycin HCl 1,000 mg/ (Sodium Chloride) 270 mls @ 125 mls/hr IV Q8H LA Stop: 09/03/19 03:59 Last Admin: 08/28/19 14:18 Dose: Not Given Documented by: [id number] Infusion: 08/28/19 09:02 Dose: 0 mls/hr Documented by: [id number] Admin: 08/28/19 06:15 Dose: 125 mls/hr Documented by: [id number] Infusion: 08/27/19 23:45 Dose: 0 mls/hr Documented by: [id number] Admin: 08/27/19 21:05 Dose: 125 mls/hr Documented by: [id number] Infusion: 08/27/19 14:20 Dose: 0 mls/hr Documented by: [id number] Admin: 08/27/19 12:07 Dose: 125 mls/hr Documented by: [id number] Infusion: 08/27/19 05:48 Dose: 0 mls/hr Documented by: [id number] Admin: 08/27/19 03:39 Dose: 125 mls/hr Documented by: [id number] Potassium Phosphate 21 mmol/ (Sodium Chloride) 507 mls @ 88 mls/hr IV ONE ONE Stop: 08/27/19 14:30 Last Infusion: 08/27/19 14:20 Dose: 0 mls/hr Documented by: [id number] Admin: 08/27/19 09:04 Dose: 88 mls/hr Documented by: [id number] Lactobacillus Acidophilus (Floranex) 4 tab PO BID LA Stop: 09/27/19 11:59 Last Admin: 08/28/19 11:33 Dose: Not Given Documented by: [id number] Lactulose (Chronulac) 30 gm PEG BID LA Stop: 09/26/19 20:59 Last Admin: 08/28/19 09:02 Dose: Not Given Documented by: [id number] Admin: 08/27/19 21:01 Dose: 30 gm Documented by: [id number] Methylprednisolone (Solumedrol) 25 mg IV NOW STA Stop: 08/26/19 20:36 Last Admin: 08/26/19 21:22 Dose: 25 mg Documented by: [id number] Ondansetron HCl (Zofran) 4 mg IV NOW STA Stop: 08/26/19 16:24 Last Admin: 08/26/19 16:47 Dose: 4 mg Documented by: [id number] Potassium Chloride (Lian Ciel Elix) 10 meq PEG BID LA Stop: 09/27/19 10:59 Last Admin: 08/28/19 12:26 Dose: Not Given Documented by: [id number] Sennosides (Senokot) 8.6 mg PO BID LA Stop: 09/27/19 10:59 Last Admin: 08/28/19 11:33 Dose: Not Given Documented by: [id number] Critical Care Time Critical Care Time: Yes Total Critical Care Time: 58 Critical care of 58 min performed to assess and manage high likelihood of life- threatening respiratory failure and sepsis, involving labs/imaging/use of bipap performed with assessment to evaluation respiratory failure and sepsis diagnosis with frequent reassessment. This time includes bedside time, treatment discussions with patient/family/consultants, documentation time and excludes procedure time. Medical Decision Making Differential Diagnosis Differential diagnoses includes but is not limited to pneumonia, bronchitis, COPD/Asthma exacerbation, pneumothorax, pulmonary embolism, congestive heart failure, acute coronary syndrome Medical Records Attestation: I reviewed the patient's medical records. Home Medications Current Medication List: was personally reviewed by me Laboratory Data Attestation: I reviewed the patient's lab results. Result diagrams: 08/27/19 07:29 08/28/19 12:23 Lab Results 08/26/19 08/26/19 08/26/19 Range/Units 16:40 16:40 16:40 WBC (4.8-10.8) K/uL RBC (4.2-5.4) M/uL Hgb (12.0-16.0) g/dL Hct (37-47) % MCV (80-100) fL MCH (25-34) pg MCHC (32-36) g/dL RDW Std Deviation (36.4-46.3) fL RDW Coeff of Julia (11.5-14.5) % Plt Count (130-400) K/uL MPV (7.4-10.4) fL Immature Gran % (Auto) % Neut % (Auto) % Lymph % (Auto) % Franklin % (Auto) % Eos % (Auto) % Baso % (Auto) % Immature Gran # (Auto) (0.00-0.02) K/uL Neut # (Auto) (1.4-6.5) K/uL Lymph # (Auto) (1.2-3.4) K/uL Franklin # (Auto) (0.11-0.59) K/uL Eos # (Auto) (0-0.5) K/uL Baso # (Auto) (0-0.2) K/uL PT (9.0-12.0) Seconds INR (0.9-1.1) APTT (21.0-31.0) Seconds PTT Ratio ABG pH (7.35-7.45) ABG pCO2 (35-46) mmHg ABG pO2 (80-95) mmHg ABG HCO3 (19-24) mmol/L ABG O2 Saturation (90-95) % ABG Base Excess (-9-1.8) mEq/L Gabriel Test (Pos) Barometric Pressure mm/Hg Oxygen Given Sodium (136-145) mmol/L Potassium (3.5-5.1) mmol/L Chloride (98-107) mmol/L Carbon Dioxide (21-32) mmol/L Anion Gap (3-11) BUN (7-18) mg/dl Creatinine (0.6-1.2) mg/dl Est Cr Clr Drug Dosing Est GFR ( Amer) Est GFR (Non-Af Amer) BUN/Creatinine Ratio (10-20) Glucose (70-99) mg/dl Lactate (0.4-2.0) mmol/L Calcium (8.5-10.1) mg/dl Magnesium Total Bilirubin (0.2-1) mg/dl AST (15-37) U/L ALT (12-78) U/L Alkaline Phosphatase (45-117) U/L Troponin I (0-0.045) ng/ml Total Protein (6.4-8.2) gm/dl Albumin (3.4-5.0) gm/dl Globulin (2.5-4.0) gm/dl Albumin/Globulin Ratio (0.9-2) Procalcitonin COVID-19 PCR NEGATIVE (Negative) Influenza Type A (PCR) Neg for Influ A (Neg) Influenza Type B (PCR) Neg for Influ B (Neg) SARS-CoV-2 RNA (RT-PCR) Cancelled 08/26/19 08/26/19 08/26/19 Range/Units 16:46 16:46 16:46 WBC 5.76 (4.8-10.8) K/uL RBC 5.26 (4.2-5.4) M/uL Hgb 17.0 H (12.0-16.0) g/dL Hct 52.4 H (37-47) % MCV 99.6 (80-100) fL MCH 32.3 (25-34) pg MCHC 32.4 (32-36) g/dL RDW Std Deviation 49.9 H (36.4-46.3) fL RDW Coeff of Julia 13.6 (11.5-14.5) % Plt Count 98 L (130-400) K/uL MPV 11.7 H (7.4-10.4) fL Immature Gran % (Auto) 0.2 % Neut % (Auto) 77.7 % Lymph % (Auto) 18.6 % Franklin % (Auto) 3.3 % Eos % (Auto) 0.0 % Baso % (Auto) 0.2 % Immature Gran # (Auto) 0.01 (0.00-0.02) K/uL Neut # (Auto) 4.48 (1.4-6.5) K/uL Lymph # (Auto) 1.07 L (1.2-3.4) K/uL Franklin # (Auto) 0.19 (0.11-0.59) K/uL Eos # (Auto) 0.00 (0-0.5) K/uL Baso # (Auto) 0.01 (0-0.2) K/uL PT 11.9 (9.0-12.0) Seconds INR 1.1 (0.9-1.1) APTT 23.6 (21.0-31.0) Seconds PTT Ratio 0.8 ABG pH (7.35-7.45) ABG pCO2 (35-46) mmHg ABG pO2 (80-95) mmHg ABG HCO3 (19-24) mmol/L ABG O2 Saturation (90-95) % ABG Base Excess (-9-1.8) mEq/L Gabriel Test (Pos) Barometric Pressure mm/Hg Oxygen Given Sodium 136 (136-145) mmol/L Potassium (3.5-5.1) mmol/L Chloride 103 (98-107) mmol/L Carbon Dioxide 26 (21-32) mmol/L Anion Gap 8.0 (3-11) BUN 18 (7-18) mg/dl Creatinine 0.66 (0.6-1.2) mg/dl Est Cr Clr Drug Dosing Not Reportable Est GFR ( Amer) 107.4 Est GFR (Non-Af Amer) 92.7 BUN/Creatinine Ratio 26.7 H (10-20) Glucose 130 H (70-99) mg/dl Lactate (0.4-2.0) mmol/L Calcium 8.9 (8.5-10.1) mg/dl Magnesium TNP Total Bilirubin 0.9 (0.2-1) mg/dl AST (15-37) U/L ALT 38 (12-78) U/L Alkaline Phosphatase 153 H (45-117) U/L Troponin I < 0.015 (0-0.045) ng/ml Total Protein 7.7 (6.4-8.2) gm/dl Albumin 2.8 L (3.4-5.0) gm/dl Globulin 4.9 H (2.5-4.0) gm/dl Albumin/Globulin Ratio 0.6 L (0.9-2) Procalcitonin COVID-19 PCR (Negative) Influenza Type A (PCR) (Neg) Influenza Type B (PCR) (Neg) SARS-CoV-2 RNA (RT-PCR) 08/26/19 08/26/19 08/26/19 Range/Units 16:46 16:46 18:12 WBC (4.8-10.8) K/uL RBC (4.2-5.4) M/uL Hgb (12.0-16.0) g/dL Hct (37-47) % MCV (80-100) fL MCH (25-34) pg MCHC (32-36) g/dL RDW Std Deviation (36.4-46.3) fL RDW Coeff of Julia (11.5-14.5) % Plt Count (130-400) K/uL MPV (7.4-10.4) fL Immature Gran % (Auto) % Neut % (Auto) % Lymph % (Auto) % Franklin % (Auto) % Eos % (Auto) % Baso % (Auto) % Immature Gran # (Auto) (0.00-0.02) K/uL Neut # (Auto) (1.4-6.5) K/uL Lymph # (Auto) (1.2-3.4) K/uL Franklin # (Auto) (0.11-0.59) K/uL Eos # (Auto) (0-0.5) K/uL Baso # (Auto) (0-0.2) K/uL PT (9.0-12.0) Seconds INR (0.9-1.1) APTT (21.0-31.0) Seconds PTT Ratio ABG pH (7.35-7.45) ABG pCO2 (35-46) mmHg ABG pO2 (80-95) mmHg ABG HCO3 (19-24) mmol/L ABG O2 Saturation (90-95) % ABG Base Excess (-9-1.8) mEq/L Gabriel Test (Pos) Barometric Pressure mm/Hg Oxygen Given Sodium (136-145) mmol/L Potassium 3.6 (3.5-5.1) mmol/L Chloride (98-107) mmol/L Carbon Dioxide (21-32) mmol/L Anion Gap (3-11) BUN (7-18) mg/dl Creatinine (0.6-1.2) mg/dl Est Cr Clr Drug Dosing Est GFR ( Amer) Est GFR (Non-Af Amer) BUN/Creatinine Ratio (10-20) Glucose (70-99) mg/dl Lactate 2.5 H* (0.4-2.0) mmol/L Calcium (8.5-10.1) mg/dl Magnesium 2.0 Total Bilirubin (0.2-1) mg/dl AST 12 L (15-37) U/L ALT (12-78) U/L Alkaline Phosphatase (45-117) U/L Troponin I (0-0.045) ng/ml Total Protein (6.4-8.2) gm/dl Albumin (3.4-5.0) gm/dl Globulin (2.5-4.0) gm/dl Albumin/Globulin Ratio (0.9-2) Procalcitonin Cancelled COVID-19 PCR (Negative) Influenza Type A (PCR) (Neg) Influenza Type B (PCR) (Neg) SARS-CoV-2 RNA (RT-PCR) 08/26/19 08/26/19 08/26/19 Range/Units 18:12 18:50 19:51 WBC (4.8-10.8) K/uL RBC (4.2-5.4) M/uL Hgb (12.0-16.0) g/dL Hct (37-47) % MCV (80-100) fL MCH (25-34) pg MCHC (32-36) g/dL RDW Std Deviation (36.4-46.3) fL RDW Coeff of Julia (11.5-14.5) % Plt Count (130-400) K/uL MPV (7.4-10.4) fL Immature Gran % (Auto) % Neut % (Auto) % Lymph % (Auto) % Franklin % (Auto) % Eos % (Auto) % Baso % (Auto) % Immature Gran # (Auto) (0.00-0.02) K/uL Neut # (Auto) (1.4-6.5) K/uL Lymph # (Auto) (1.2-3.4) K/uL Franklin # (Auto) (0.11-0.59) K/uL Eos # (Auto) (0-0.5) K/uL Baso # (Auto) (0-0.2) K/uL PT (9.0-12.0) Seconds INR (0.9-1.1) APTT (21.0-31.0) Seconds PTT Ratio ABG pH 7.41 (7.35-7.45) ABG pCO2 44 (35-46) mmHg ABG pO2 43 L (80-95) mmHg ABG HCO3 27 H (19-24) mmol/L ABG O2 Saturation 77.6 L (90-95) % ABG Base Excess 2.0 H (-9-1.8) mEq/L Gabriel Test POS (Pos) Barometric Pressure 735.9 mm/Hg Oxygen Given FI O2 80% Sodium (136-145) mmol/L Potassium (3.5-5.1) mmol/L Chloride (98-107) mmol/L Carbon Dioxide (21-32) mmol/L Anion Gap (3-11) BUN (7-18) mg/dl Creatinine (0.6-1.2) mg/dl Est Cr Clr Drug Dosing Est GFR ( Amer) Est GFR (Non-Af Amer) BUN/Creatinine Ratio (10-20) Glucose (70-99) mg/dl Lactate 2.1 H* (0.4-2.0) mmol/L Calcium (8.5-10.1) mg/dl Magnesium Total Bilirubin (0.2-1) mg/dl AST (15-37) U/L ALT (12-78) U/L Alkaline Phosphatase (45-117) U/L Troponin I (0-0.045) ng/ml Total Protein (6.4-8.2) gm/dl Albumin (3.4-5.0) gm/dl Globulin (2.5-4.0) gm/dl Albumin/Globulin Ratio (0.9-2) Procalcitonin 1.11 H COVID-19 PCR (Negative) Influenza Type A (PCR) (Neg) Influenza Type B (PCR) (Neg) SARS-CoV-2 RNA (RT-PCR) Imaging Data Radiologist's Impression: XR KUB/Abdomen 1 view CLINICAL HISTORY: PEG tube tube position COMPARISON STUDY: No previous studies for comparison. FINDINGS: PEG tube position the left of the L 1 vertebral body. Nonobstructive bowel pattern. No contrast was utilized per order. IMPRESSION: PEG tube left upper abdomen left lateral to the L1 vertebral body. ACT 112: Negative or not required by law. The above report was generated using voice recognition software. It may contain grammatical, syntax or spelling errors. Electronically signed by: Jarred Celestin M.D. 08/26/2019 5:51 PM XR chest 1V portable CLINICAL HISTORY: SEPSIS dyspnea COMPARISON STUDY: 07/18/2016 FINDINGS: Small parenchymal infiltrate medial aspect left base. Small parenchymal infiltrate right apex. Lungs otherwise appear clear. Diaphragms are smooth. IMPRESSION: Small parenchymal infiltrates left base and right upper lung. ACT 112: Negative or not required by law. The above report was generated using voice recognition software. It may contain grammatical, syntax or spelling errors. Electronically signed by: Jarred Celestin M.D. 08/26/2019 5:49 PM ECG Data Attestation: I personally reviewed and interpreted this ECG as follows: Indication: + SOB/dyspnea Rate (beats per minute): 110 Rhythm: + sinus tachycardia ECG Intervals/blocks: + Normal QRS and + Normal QT ECG [place]: + Left axis deviation ECG ST segments: + Nonspecific ST abnormalities Additional Comments: baseline artifact noted Blood Pressure Blood Pressure Findings: Elevated blood pressure Blood Pressure Disposition: further management by hospitalist FORREST Narrative Pt brought in from a local facility with obvious work of breathing and respiratory distress. Pt found to be hypoxic and vomiting by EMS. Pt placed on a NRB @ 15 lpm and was holding sats in the mid 90's but was tachypneic with significant increased WOB. A septic work up was started, pt given zofran and tylenol, and zosyn immediately ordered due to concern for likely aspiration contributing to respiratory distress. Pt was started on bipap due to prior wishes of DNR/DNI which was confirmed with the son. Pt improved with use of BIPAP. Given chronic NH status and indwelling PEG, vancomycin added. Procalcitonin elevated, lactic acid very mildly elevated. Pt noted to be thrombocytopenic, however this appears chronic on review of EMR. ABG reassuring, was performed about bipap had been initiated. Son updated on condition and plan for admission. I do not suspect acs or chf at this time. I feel PE less likely, althought possible given pt mostly bedbound and sedentary. CT deferred pending COVID testing. Case discussed with hospitalist. An order was placed for continuous cardiac monitoring. The monitor shows a rate of _88_ with _normal sinus_ rhythm. Impression & Plan Sepsis, Aspiration pneumonia, Vomiting, Acute respiratory failure with hypoxia, Thrombocytopenia Discharge Plan Visit Data *Final* Discharge Date/Time: 08/26/19 21:29 Chief Complaint: Respiratory Distress Stated Complaint: RESP. DISTRESS, ED Provider: Yvette Sanchez Discharge Problem: Sepsis, Aspiration pneumonia, Vomiting, Acute respiratory failure with hypoxia, Thrombocytopenia Patient Disposition: Admitted As Inpatient Discharge Instructions Interventions: ED Discharge Assessment Last Done: 08/26/19 21:29 Discharge Problem: Sepsis Qualifiers: Sepsis type: sepsis due to unspecified organism Sepsis acute organ dysfunction status: with acute organ dysfunction Severe sepsis acute organ dysfunction type: acute respiratory failure Acute respiratory failure type: with hypoxia Severe sepsis shock status: without septic shock Qualified Code(s): A41.9 - Sepsis, unspecified organism Aspiration pneumonia Qualifiers: Aspiration pneumonia type: due to vomit Laterality: bilateral Lung location: unspecified part of lung Qualified Code(s): J69.0 - Pneumonitis due to inhalation of food and vomit Vomiting Qualifiers: Vomiting type: unspecified Vomiting Intractability: non-intractable Nausea presence: unspecified Qualified Code(s): R11.10 - Vomiting, unspecified
[2019-08-26] MEDS ORDERED: ONDANSETRON INJ 2 MG/ML 2 ML VIAL IV STA (16:23)
[2019-08-26] MEDS ORDERED: ACETAMINOPHEN 1,000 MG/100 ML VIAL IV STA (16:26)
[2019-08-26 17:13] LABS: INR 1.1 (0.9-1.1); Partial Thromboplastin Ratio 0.8; Partial Thromboplastin Time 23.6 Seconds (21.0-31.0); Prothrombin Time 11.9 Seconds (9.0-12.0)
[2019-08-26 17:28] LABS: Alanine Aminotransferase 38 U/L (12-78); Albumin Globulin Ratio 0.6 (0.9-2); Albumin Level 2.8 gm/dl (3.4-5.0); Alkaline Phosphatase 153 U/L (45-117); BUN Creatinine Ratio 26.7 (10-20); Bilirubin,Total 0.9 mg/dl (0.2-1); Blood Urea Nitrogen 18 mg/dl (7-18); Calcium 8.9 mg/dl (8.5-10.1); Carbon Dioxide 26 mmol/L (21-32); Chloride 103 mmol/L (98-107); Est GFR (African American) 107.4; Est GFR (Non-African American) 92.7; Globulin 4.9 gm/dl (2.5-4.0); Glucose 130 mg/dl (70-99); Sodium 136 mmol/L (136-145); Total Protein 7.7 gm/dl (6.4-8.2); Troponin I < 0.015 ng/ml (0-0.045)
[2019-08-26 17:31] LABS: Influenza A virus by PCR Neg for Influ A (Neg); Influenza B virus by PCR Neg for Influ B (Neg)
[2019-08-26 17:38] LABS: Hematocrit (blood only) 52.4 % (37-47); Mean Corpuscular Hemoglobin 32.3 pg (25-34); Mean Corpuscular Hgb Conc 32.4 g/dL (32-36); Mean Corpuscular Volume 99.6 fL (80-100); Mean Platelet Volume 11.7 fL (7.4-10.4); Platelet Count 98 K/uL (130-400); RDW Coefficient of Variation 13.6 % (11.5-14.5); RDW Standard Deviation 49.9 fL (36.4-46.3); Red Blood Count 5.26 M/uL (4.2-5.4); White Blood Count 5.76 K/uL (4.8-10.8)
[2019-08-26 17:41] LABS: Basophils # (auto) 0.01 K/uL (0-0.2); Basophils % (auto) 0.2 %; Immature Granulocytes # (auto) 0.01 K/uL (0.00-0.02); Immature Granulocytes % (auto) 0.2 %; Lymphocytes # (auto) 1.07 K/uL (1.2-3.4); Lymphocytes % (auto) 18.6 %; Monocytes # (auto) 0.19 K/uL (0.11-0.59); Monocytes % (auto) 3.3 %; Neutrophils # (auto) 4.48 K/uL (1.4-6.5); Neutrophils % (auto) 77.7 %
--- NOTE | 2019-08-26 17:51 | XRay Report ---
XR chest 1V portable CLINICAL HISTORY: SEPSIS dyspnea COMPARISON STUDY: 07/18/2016 FINDINGS: Small parenchymal infiltrate medial aspect left base. Small parenchymal infiltrate right ap ex. Lungs otherwise appear clear. Diaphragms are smooth. IMPRESSION: Small parenchymal infiltrates left base and right upper lung. ACT 112: Negative or not required by law. The above report was generated using voice recognition software. It may contain grammatical, syntax or spelling errors. Electronically signed by: Jarred Celestin M.D. 08/26/2019 5:49 PM
--- NOTE | 2019-08-26 17:52 | XRay Report ---
XR KUB/Abdomen 1 view CLINICAL HISTORY: PEG tube tube position COMPARISON STUDY: No previous studies for comparison. FINDINGS: PEG tube position the left of the L 1 vertebral body. Nonobstructive bowel pattern. No cont rast was utilized per order. IMPRESSION: PEG tube left upper abdomen left lateral to the L1 vertebral body. ACT 112: Negative or not required by law. The above report was generated using voice recognition software. It may contain grammatical, syntax or spelling errors. Electronically signed by: Jarred Celestin M.D. 08/26/2019 5:51 PM
[2019-08-26] MEDS ORDERED: VANCOMYCIN CONSULT ACTIVE PRN ×3 (18:14→21:52)
[2019-08-26] MEDS ORDERED: VANCOMYCIN HCL 1,500 MG in SODIUM CHLORIDE 0.9% 500 ML IV ONE (18:14)
[2019-08-26 18:47] LABS: Potassium 3.6 mmol/L (3.5-5.1)
[2019-08-26 20:02] LABS: HCO3 ABG 27 mmol/L (19-24); Oxygen Saturation ABG 77.6 % (90-95); PCO2 ABG 44 mmHg (35-46); PO2 ABG 43 mmHg (80-95); pH ABG 7.41 (7.35-7.45)
[2019-08-26 20:03] LABS: Allen Test POS (Pos)
--- NOTE | 2019-08-26 20:39 | History & Physical Report ---
Date of Service August 26, 2019 Assessment & Plan (1) Aspiration pneumonia: Patient is a 63 year old female with PMHx Brain Aneurysm s/p brain surgery , PEG Tube, L side Hemiplagia, Anxiety, and Depression who presented in acute respiratory distress, vomiting, and fever. ED Course: 2L NSS, Zosyn 4.5gm IV, Vancomycin 1500mg IV, Tylenol 1000mg IV, Zofran 4mg IV Respiratory Distress, likely secondary to Aspiration Pneumonia -Although concern for aspiration pneumonia, as patient is a DNI will continue with BiPAP and watch closely. -Continue Zosyn and Vancomycin -Methylprednisolone 25mg IV now with Methylprednisolone 40mg IV q8h following -NPO and Nothing per PEG tube Vomiting -Patient was noted to have vomited at [facility] and in the ED -Was suctioned in ED post emesis and given Zofran which has controlled her vomiting. -NPO and Nothing per PEG tube -Repleting fluids with D5W NSS w/ 20meq K at 100ml/hr Hx PEG Tube Malfunction -Patients son notes malfunction that required replacement in 11/16/2018 of patients Devonte Cook 20Fr PEG at the time. -PEG was replaced then with a low profile 20 Fr Arsenio-Murrell gastrostomy tube. -Abdominal exam appears negative at this time, but low suspicion for reoccur rence of malfunction. -Will require further imaging for function of tube when patient is more stable -NPO and Nothing per PEG tube at this time. Possible UTI -UA concerning for infection, though likely chronic given patient is incontinent. -Currently on Vancomycin and Zosyn History of Brain Injury -Per son history of Brain aneurysm requiring surgery in [id number] -Patient has been hemiplegic of L arm and leg since -Discussed with son about patients poor prognosis, he would like a consult to discuss with Palliative. -Palliative consulted. Dispo: Telemetry FEN: NPO, D5W NSS +20meq KCl 100ml/hr, Nothing per PEG DVT: Heparin sq Code: DNR/DNI, No pressors (2) PEG tube malfunction: (3) Vomiting: (4) Brain injury: (5) Possible urinary tract infection: (6) Respiratory distress: History of Present Illness Chief Complaint: Respiratory Distress Primary Care Provider: Rainer Garcia Patient is a 63 year old female with PMHx Brain Aneurysm s/p brain surgery , PEG Tube, L side Hemiplagia, Anxiety, and Depression who presented in acute respiratory distress, vomiting, and fever. Patient was minimally able to provide history. All history was obtained from prior documentation review, discussion with the ED provider, and discussion with patients son Jr who is POA. Patient presents from [facility] where it was noted earlier this evening patient was febrile and was given tylenol. Upon reassessment of her, she was having increased respiratory distress and had an episode of vomiting. She presented via EMS and was placed initially on 15L non-rebreather for her respiratory distress. Patient also had an episode of yellow-mucus like vomit while being examined by the ED provider and was suctioned on the spot. Due to worsening respiratory status the patient was placed on Bipap and has had improved respiratory status since. Upon discussion with the son, he states that back in January patient had a very similar episode and it was noted she had a malfunction with her PEG tube which required replacement at the time. Allergies Allergy/AdvReac Type Severity Reaction Status Date / Time morphine Allergy Intermediate Hives Verified 08/26/19 17:14 Sulfa (Sulfonamide Allergy Unknown Unknown Verified 08/26/19 17:14 Antibiotics) Home Medications Home Medications Medication Instructions Recorded Confirmed Type Fleet Enema 118 ml MT DIRECTED PRN 11/14/18 08/26/19 History Probiotic 0 mmu cells FEEDING TUBE BID 11/14/18 08/26/19 History acetaminophen [Tylenol] 650 mg FEEDING TUBE Q6H PRN 11/14/18 08/26/19 History bisacodyl [Dulcolax (bisacodyl)] 10 mg MT DIRECTED PRN 11/14/18 08/26/19 History clonazepam [Klonopin] 0.5 mg FEEDING TUBE BID 11/14/18 08/26/19 History docusate sodium See Rx Instructions .ROUTE .COMPLEX 11/14/18 08/26/19 History famotidine 20 mg FEEDING TUBE DAILY 11/14/18 08/26/19 History gabapentin 400 mg FEEDING TUBE BID 11/14/18 08/26/19 History lactulose 30 g FEEDING TUBE BID 11/14/18 08/26/19 History magnesium hydroxide [Milk of 15 ml FEEDING TUBE DIRECTED PRN 11/14/18 08/26/19 History Magnesia] oxycodone 10 mg FEEDING TUBE Q6H PRN 11/14/18 08/26/19 History sennosides [senna] 8.6 mg FEEDING TUBE BID 11/14/18 08/26/19 History Tar Gel 1 applic TOPICAL 2XWK 08/26/19 08/26/19 History cholecalciferol (vitamin D3) 4,000 unit FEEDING TUBE DAILY 08/26/19 08/26/19 His tory multivitamin with minerals See Rx Instructions .ROUTE .COMPLEX 08/26/19 08/26/19 History [Multiple Vitamin-Minerals] potassium chloride 10 meq FEEDING TUBE BID 08/26/19 08/26/19 History selenium sulfide [Selsun Blue] 1 applic TOPICAL 2XWK 08/26/19 08/26/19 History Past Med/Surg History Medical History Anxiety Aphasia Contracture of knee R/L Dementia UNSPECIFIED WITH BEHAVIORIAL DISTURBANCE Depression Dysphagia GERD (gastroesophageal reflux disease) Hemiplegia AND HEMIPARESIS-LEFT SIDE Hydrocephalus COMMUNICATING Hypertension Stroke Tremor Surgical History History of brain surgery History of gastrostomy tube placement Social History Preferred Language: Turkish Communication Ability: Unable Process Safety Specialist Required: No Beliefs That Will Affect Care: None Current Living Situation: Custodial Current Living Situation Comment: RESIDENT OF [facility] Other Information That Helps Us Care for You: No Feels Safe at Home: Yes Smoking Status: Never smoker Hx Alcohol Use: No Hx Substance Use: No Review of Systems Review of Systems: Unobtainable due to cognitive status Physical Exam Constitutional: + physical limitations, + language barrier, + frail appearing and + in distress; not combative Bipap in place Eyes: + anicteric sclerae and PERRL; + EOM not intact (unable to determine, patient did not follow commands ) Neck: trachea midline, no thyromegaly Respiratory: normal respiratory effort (while on Bipap ) and symmetric chest movement; + not able to speak in complete sentence and no stridor Auscu ltation: lungs clear to auscultation bilaterally (front lung herman); no crackles, no rhonchi and no wheezes Cardiovascular: RRR, no murmur, no edema Gastrointestinal (Abdomen): Inspection/Auscultation: abdomen normal to inspection and normal bowel sounds; abdomen not distended, no abdominal edema and no high-pitched sounds Percussion/Palpation: abdomen soft; abdomen nontender and abdomen not firm PEG tube in place, no erythema noted surrounding tube insertion site Musculoskeletal: Head/Neck/Chest: + head abnormal to inspection (R crainum deformity, chronic, 2/2 prior surgery) Gait: + abnormal gait Able to grasp with R hand. L arm and leg immobile. Skin: no rashes, warm and dry Neurologic: awake Speech / Cognition: + abnormal speech (minimally verbal) Cranial Nerves: PERRL Psychiatric: Orientation: alert Eye Contact: + poor eye contact Speech: + mute Results & Data Results & Data ([facility]) Vital Signs (Past 12 Hours) Vital Signs Temp Pulse Pulse Resp BP BP Pulse Ox 08/26/19 19:45 92 H 28 H 135/86 97 08/26/19 19:30 98 H 27 H 149/85 H 96 08/26/19 19:15 97 H 27 H 145/71 H 96 08/26/19 19:00 93 H 24 130/71 96 08/26/19 18:45 95 H 24 121/71 95 08/26/19 18:30 92 H 26 H 143/73 H 97 08/26/19 18:20 95 H 26 H 96 08/26/19 18:15 92 H 26 H 127/94 97 08/26/19 18:10 26 H 97 08/26/19 18:01 103 H 26 H 95 08/26/19 18:00 102 H 27 H 123/74 94 08/26/19 17:50 106 H 28 H 96 08/26/19 17:45 99 H 28 H 109/76 97 08/26/19 17:40 99 H 28 H 97 08/26/19 17:31 104 H 32 H 97 08/26/19 17:30 105 H 98 H 33 H 125/72 125/72 98 08/26/19 17:20 101 H 30 H 97 08/26/19 17:15 100 H 31 H 127/75 97 08/26/19 17:10 98 H 33 H 96 08/26/19 17:07 101 H 30 H 96 08/26/19 17:01 105 H 36 H 96 08/26/19 17:00 102 H 36 H 126/82 96 08/26/19 16:59 107 H 39 H 143/84 H 94 08/26/19 16:56 106 H 35 H 143/84 H 94 08/26/19 16:50 106 H 33 H 96 08/26/19 16:40 102 H 35 H 97 08/26/19 16:30 93 H 39 H 94 08/26/19 16:26 39 C H 110 H 45 H 178/81 H 94 08/26/19 16:20 88 32 H 90 08/26/19 16:17 94 H 44 H 178/81 H 93 08/26/19 16:13 90 51 H 93 Code Status & VTE Plan VTE Prophylaxis Plan VTE Prophylaxis will be ordered: Yes Supervising Physician Co-Signing Physician Notes Attending addendum: I have physically seen this patient, have supervised the medical residents activities, and agree with the H&P unless as otherwise noted. Assessment and Plan: pneumonia/jail patient- Place on vancomycin IV and Zosyn IV. Methylprednisolone 125 mg IV now, then 40 mg IV every 8 hours NPO Nothing per PEG tube for this evening. IV fluids overnight, D5 normal saline with KCl 20 mEq at 100 mils per hour Zofran 4 mg IV every 6 hours as needed. Change from BiPAP to nasal cannula as soon as symptomatology improves. Condition is improving with ED interventions History of traumatic brain injury/left hemiplegia- palliative care consulted PG Care Time/CCT Total # of Minutes Spent Total Time Spent with Patient: Total time spent is greater than 50% in coordination of care (as documented) at patient's floor/unit and/or counseling patient: Coding Level of Care Code 92923 Initial Inpt Care Lvl 3 Diagnoses Aspiration pneumonia J69.0 PEG tube malfunction K94.23 Vomiting R11.10 Brain injury S06.9X9A Possible urinary tract infection R39.89 Respiratory distress R06.03 Resident Activity Tracking Resident Involvement: Resident Care Provided Care Provided: Adult Hospital Medicine
[2019-08-26 21:05] LABS: Appearance Urine Clear (Clear); Bacteria Urine Automated 1+ (Negative); Bilirubin Urine Negative (Negative); Blood Urine Trace (Negative); Color Urine Dark Yellow; Glucose Urine UA Negative (Negative); Ketones Urine 1+ (Negative); Leukocyte Esterase Urine 1+ (Negative); Nitrite Urine Negative (Negative); Protein Urine 1+ (Negative); RBC Urine Automated 0-4 /hpf (0-4); Specific Gravity Urine 1.037 (1.000-1.030); Urobilinogen Urine Negative (Negative); WBC Urine Automated >30 /hpf (0-5)
[2019-08-26] MEDS ORDERED: VANCOMYCIN HCL 1,000 MG in SODIUM CHLORIDE 0.9% 500 ML IV SCH (21:52)
[2019-08-26] MEDS: HEPARIN SOD 5,000 UNIT/0.5 ML VIAL SQ SCH (22:30)
[2019-08-26] MEDS: PIPERACILLIN/TAZOBACTAM 3.375 GM/115 ML BAG IV SCH (22:30)
[2019-08-26] MEDS: D5NSS + 20MEQ KCL 20 MEQ/1,000 ML BAG IV SCH (23:08)
[2019-08-27] MEDS ORDERED: PIPERACILLIN/TAZOBACTAM 3.375 GM/115 ML BAG IV SCH
--- NOTE | 2019-08-27 00:31 | Billing Data ---
Date of Service August 27, 2019 Coding Level of Care Code 02815 Initial Inpt Care Lvl 3
[2019-08-27] MEDS: VANCOMYCIN HCL 1,000 MG in SODIUM CHLORIDE 0.9% 250 ML IV SCH ×3 (03:39→21:05)
[2019-08-27] MEDS: PIPERACILLIN/TAZOBACTAM 3.375 GM/115 ML BAG IV SCH ×3 (05:43→23:45)
[2019-08-27] MEDS: methylPREDNISolone 40 MG in SYRINGE 0 ML IV SCH ×3 (05:43→21:02)
[2019-08-27 08:06] LABS: Albumin Globulin Ratio 0.5 (0.9-2); Albumin Level 2.1 gm/dl (3.4-5.0); BUN Creatinine Ratio 27.9 (10-20); Bilirubin,Total 0.6 mg/dl (0.2-1); Calcium 8.4 mg/dl (8.5-10.1); Creatinine Clr Calc Pharmacy 131.1 ml/min; Est GFR (African American) 124.7; Est GFR (Non-African American) 107.6; Globulin 4.1 gm/dl (2.5-4.0); Magnesium 2.2 mg/dl (1.8-2.4); Phosphorus 1.5 mg/dl (2.5-4.9); Potassium 4.7 mmol/L (3.5-5.1); Total Protein 6.2 gm/dl (6.4-8.2)
[2019-08-27 08:08] LABS: Basophils # (auto) 0.01 K/uL (0-0.2); Basophils % (auto) 0.1 %; Hematocrit (blood only) 44.1 % (37-47); Hemoglobin 14.5 g/dL (12.0-16.0); Immature Granulocytes # (auto) 0.04 K/uL (0.00-0.02); Immature Granulocytes % (auto) 0.5 %; Lymphocytes # (auto) 0.65 K/uL (1.2-3.4); Lymphocytes % (auto) 8.8 %; Mean Corpuscular Hemoglobin 31.9 pg (25-34); Mean Corpuscular Hgb Conc 32.9 g/dL (32-36); Mean Corpuscular Volume 97.1 fL (80-100); Mean Platelet Volume 12.2 fL (7.4-10.4); Monocytes # (auto) 0.31 K/uL (0.11-0.59); Monocytes % (auto) 4.2 %; Neutrophils # (auto) 6.37 K/uL (1.4-6.5); Neutrophils % (auto) 86.4 %; Platelet Count 74 K/uL (130-400); RDW Coefficient of Variation 13.3 % (11.5-14.5); RDW Standard Deviation 47.3 fL (36.4-46.3); Red Blood Count 4.54 M/uL (4.2-5.4); White Blood Count 7.38 K/uL (4.8-10.8)
[2019-08-27] MEDS: D5NSS + 20MEQ KCL 20 MEQ/1,000 ML BAG IV SCH ×2 (08:14→17:52)
[2019-08-27] MEDS: HEPARIN SOD 5,000 UNIT/0.5 ML VIAL SQ SCH ×2 (08:14→21:02)
[2019-08-27] MEDS ORDERED: POTASSIUM PHOS 3 MMOL/1 ML INFUSION IV STA (08:21)
[2019-08-27] MEDS ORDERED: POTASSIUM PHOSPHATE 21 MMOL in SODIUM CHLORIDE 0.9% 500 ML IV ONE (08:45)
--- NOTE | 2019-08-27 10:50 | Palliative Care Consultation ---
Date of Consultation August 27, 2019 Assessment & Plan (1) Goals of care, counseling/discussion: -63 year old female patient with PMH brain aneurysm s/p brain surgery 2007/2008, PEG Tube, left sided hemiplegia, anxiety, and depression, presented to the ED yesterday in acute respiratory distress with vomiting and a fever. Patient resides at the [facility], they reported patient had a fever and was given Tylenol. Her respiratory status continued to worsen and she had a vomiting episode. In ED, patient had a witnessed vomiting episode as well. She was on a non-rebreather but eventually was placed on bipap. CXR showed small parenchymal infiltrates left base and right upper lung. Lactic acid 2.1 and 2.5 shortly after. UA abnormal, culture sent. Blood cultures pending. Patient was on nonrebreather this morning, now on 3LNC and sats are 92%. Patient's son, Jr, is POA. Palliative care is consulted to discuss goals of care. -Patient to be seen by palliative MD this afternoon. Spoke with attending physician re: patient condition. -Spoke with patient's son, Jr, over phone. He is tearful and appropriately concerned about his mother's condition. He states that at baseline, patient is nonverbal and essentially is paralyzed. He states that patient does have some awareness and knows who he is. When he visits, she is able to have some limited interactive with him. She is fed via PEG tube and requires complete care of course. -Jr confirmed that at this time, we are continuing current supportive care with oxygen and abx. If patient's respiratory status worsens, she will remain a DNR/DNI. He is okay with bipap/NRB until he is notified and able to make decisio ns. -Jr requested that he be allowed to make a visit so he can see how patient is doing and better able to make decisions regarding goals of care. I confirmed with the attending physician that this is appropriate. He will call into the nurses' station to get instructions. -Patient is at continued risk of aspiration/pneumonitis/pneumonia due to her debilitated state. Important for son to understand that this can continue to happen, as abx do not treat aspiration. PEG tube does not prevent aspiration. -We will continue to follow. If patient's son is at bedside while palliative MD is rounding, will continue conversation about goals of care at that time. (2) Respiratory distress: (3) Aspiration pneumonia: (4) Vomiting: Supervising Physician Co-Signing Physician Notes Chart reviewed, patient seen and examined. Collaborated with HOUSTON Jensen Patient's son, Willian at bedside. Spoke with patient's son in private, patient's daughter Donna, on speaker phone. Discussed patient's prior level of functioning, current condition, discussed plan as well as goals of care. Patient's current CODE STATUS is DNR Patient has 2 children, Willian who lives locally and works at [employer] and a daughter Donna who lives in [facility]. They report patient has had her PEG tube for approximately 2 to 3 years after several years of progressive dysphasia after of ruptured brain aneurysm-status post craniotomy/craniectomy with residual left hemiparesis. Patient had multiple staph infections which prevented bone flap replacement. Patient appears comfortable-on 3.5 L of O2 PE: Patient awake, able to nod yes or no to simple questions. Patient does recognize her son. Patient is nonverbal HEENT: EOMI, hearing grossly within normal limits Respirations: Coarse breath sounds on right, on O2 at 3.5 L with adequate sats CV: Regular rate Abdomen: Soft, nontender, G-tube button in place. Neuro: Dense left hemiparesis, nonverbal, able to nod yes or no to simple questions. Agree with above note, assessment and plan as per HOUSTON Jensen. Will continue to follow and assist family with medical decision making if medical condition worsens. Plan is to return to the [facility]. History of Present Illness Attending Physician: Won Marsh History of Present Illness This 63 year old female patient with H brain aneurysm s/p brain surgery , PEG Tube, left sided hemiplegia, anxiety, and depression, presented to the ED yesterday in acute respiratory distress with vomiting and a fever. Patient resides at the [facility] half-way, they reported patient had a fever and was given Tylenol. Her respiratory status continued to worsen and she had a vomiting episode. In ED, patient had a witnessed vomiting episode as well. She was on a non-rebreather but eventually was placed on bipap. CXR showed small parenchymal infiltrates left base and right upper lung. Lactic acid 2.1 and 2.5 shortly after. UA abnormal, culture sent. Blood cultures pending. Patient was on nonrebreather this morning, now on 3LNC and sats are 92%. Patient's son, Jr, is ARIAN. Palliative care is consulted to discuss goals of care. Thank you kindly for this consult. Palliative care team will follow as needed. Allergies Allergy/AdvReac Type Severity Reaction Status Date / Time morphine Allergy Intermediate Hives Verified 08/26/19 17:14 Sulfa (Sulfonamide Allergy Unknown Unknown Verified 08/26/19 17:14 Antibiotics) Home Medications Home Medications Medication Instructions Recorded Confirmed Type Fleet Enema 118 ml TX DIRECTED PRN 11/14/18 08/26/19 History Probiotic 0 mmu cells FEEDING TUBE BID 11/14/18 08/26/19 History acetaminophen [Tylenol] 650 mg FEEDING TUBE Q6H PRN 11/14/18 08/26/19 History bisacodyl [Dulcolax (bisacodyl)] 10 mg TX DIRECTED PRN 11/14/18 08/26/19 History clonazepam [Klonopin] 0.5 mg FEEDING TUBE BID 11/14/18 08/26/19 History docusate sodium See Rx Instructions .ROUTE .COMPLEX 11/14/18 08/26/19 History famotidine 20 mg FEEDING TUBE DAILY 11/14/18 08/26/19 History gabapentin 400 mg FEEDING TUBE BID 11/14/18 08/26/19 History lactulose 30 g FEEDING TUBE BID 11/14/18 08/26/19 History magnesium hydroxide [Milk of 15 ml FEEDING TUBE DIRECTED PRN 11/14/18 08/26/19 History Magnesia] oxycodone 10 mg FEEDING TUBE Q6H PRN 11/14/18 08/26/19 History sennosides [senna] 8.6 mg FEEDING TUBE BID 11/14/18 08/26/19 History Tar Gel 1 applic TOPICAL 2XWK 08/26/19 08/26/19 History cholecalciferol (vitamin D3) 4,000 unit FEEDING TUBE DAILY 08/26/19 08/26/19 History multivitamin with minerals See Rx Instructions .ROUTE .COMPLEX 08/26/19 08/26/19 History [Multiple Vitamin-Minerals] potassium chloride 10 meq FEEDING TUBE BID 08/26/19 08/26/19 History selenium sulfide [Selsun Blue] 1 applic TOPICAL 2XWK 08/26/19 08/26/19 History Patient History Medical History Anxiety Aphasia Contracture of knee R/L Dementia UNSPECIFIED WITH BEHAVIORIAL DISTURBANCE Depression Dysphagia GERD (gastroesophageal reflux disease) Hemiplegia AND HEMIPARESIS-LEFT SIDE Hydrocephalus COMMUNICATING Hypertension Stroke Tremor Surgical History History of brain surgery History of gastrostomy tube placement Social History Preferred Language: Malaysian Communication Ability: Unable Reach Lift Truck Driver Required: No Beliefs That Will Affect Care: None Current Living Situation: Senior Living Current Living Situation Comment: RESIDENT OF [facility] Other Information That Helps Us Care for You: No Feels Safe at Home: Yes Smoking Status: Never smoker Hx Alcohol Use: No Hx Substance Use: No Results & Data Vital Signs (Past 12 Hours) Vital Signs Temp Pulse Pulse Pulse Resp BP BP 08/27/19 09:50 08/27/19 08:03 36.6 C 86 20 125/54 L 08/27/19 07:04 36.6 C 84 18 122/76 08/27/19 03:33 65 29 H 08/27/19 03:16 36.5 C 69 17 93/53 L 08/26/19 23:59 61 08/26/19 23:21 Pulse Ox 08/27/19 09:50 92 08/27/19 08:03 80 L 08/27/19 07:04 97 08/27/19 03:33 92 08/27/19 03:16 95 08/26/19 23:59 08/26/19 23:21 99 PG Care Time/CCT Prolonged Care Time Prolonged Care Time: Yes Total Prolonged Care Time: 40 Coding Level of Care Code 92146 Inpt Consult Level 3 Diagnoses Goals of care, counseling/discussion Z71.89 Respiratory distress R06.03 Aspiration pneumonia J69.0 Vomiting R11.10 Additional Codes Prolonged Care Time - Prolonged Care Time: Yes ([id number]) Time Spent (min) 110 Time Spent Midlevel A total of 70 minutes spent in reviewing chart, several conversations with physicians and IDT, as well as speaking with family regarding patient condition and goals of care. Attending Spent 40 minutes in addition to this 70 minutes spent by HOUSTON Jensen, 100% of the time was spent at bedside /on unit speaking with family. Critical Care Time Prolonged Care Time Prolonged Care Time: Yes Total Prolonged Care Time: 40 110
[2019-08-27] MEDS: SCOPOLAMINE 1.5 MG TDSY TD SCH (12:08)
--- NOTE | 2019-08-27 14:03 | Pharmacy Report ---
Pharmacy Abx Dose Short Note - Date of Service August 27, 2019 - Assessment & Plan Assessment * Ms Lucas is a 63 year old F receiving Vanc/Zosyn for treatment of pneumonia. * PMH is significant for brain aneurysm s/p surgery , L hemiplegia, PEG tube. Pt is a [place] [facility] resident. * MRSA swab positive, urine/blood cultures pending * Patient was initiated on broad-spectrum antibiotics on admission. Plan Vancomycin * Patient meets criteria for vancomycin AUC dosing nomogram * AUC/MELINDA is the preferred PK/PD target for vancomycin * Target AUC/MELINDA = 400-600 * AUC guided dosing is effective and associated with decreased risk of nephrotoxicity * Trough level ordered prior to the 4th overall dose. Zosyn * Zosyn 4.5gm IV x1 dose over 30 min, then: * Zosyn 3.375gm IV q8h Pharmacy will continue to follow and will adjust dose/frequency as necessary. Thank you.
[2019-08-27] MEDS: CHECK SCOPOLAMINE PATCH PLACEMENT SCH ×2 (15:10→23:45)
--- NOTE | 2019-08-27 16:16 | Electrocardiogram Report ---
Test Reason : Blood Pressure : / mmHG Vent. Rate : 110 BPM Atrial Rate : 110 BPM P-R Int : 132 ms QRS Dur : 074 ms QT Int : 314 ms P-R-T Axes : 061 -34 046 degrees QTc Int : 424 ms Sinus tachycardia Left axis deviation Abnormal ECG When compared with ECG of 18-JUL-2016 14:44, Vent. rate has increased BY 38 BPM Nonspecific T wave abnormality no longer evident in Anterior leads Confirmed by Severino Armendariz ([id number]) on 08/27/2019 4:15:39 PM Referred By: Ruth Heartide Confirmed By:Severino Armendariz
[2019-08-27] MEDS: clonazePAM 0.5 MG TAB PO STA ×2 (17:53→19:38)
--- NOTE | 2019-08-27 18:25 | Hospitalist Progress Note ---
Date of Service August 27, 2019 Assessment & Plan (1) Aspiration pneumonia: Patient is a 63 year old female with PMHx Brain Aneurysm s/p brain surgery , PEG Tube, L side Hemiplagia, Anxiety, and Depression who presented in acute respiratory distress, vomiting, and fever. ED Course: 2L NSS, Zosyn 4.5gm IV, Vancomycin 1500mg IV, Tylenol 1000mg IV, Zofran 4mg IV Respiratory Distress, likely secondary to Aspiration Pneumonia -Although concern for aspiration pneumonia, as patient is a DNI Patient however has been improving. No on 3 liters nasal cannula. -Continue Zosyn and Vancomycin -Methylprednisolone 25mg IV now with Methylprednisolone 40mg IV q8h following -NPO will reinstitue peg tube mediciations. Vomiting -Patient was noted to have vomited at [facility] and in the ED -Was suctioned in ED post emesis and given Zofran which has controlled her vomiting. -NPO -Repleting fluids with D5W NSS w/ 20meq K at 100ml/hr Hx PEG Tube Malfunction -Patients son notes malfunction that required replacement in 11/16/2018 of patients Devonte Cook 20Fr PEG at the time. -PEG was replaced then with a low profile 20 Fr Arsenio-Murrell gastrostomy tube. -Abdominal exam appears negative at this time, but low suspicion for reoccurrence of malfunction. -At this point does not appear to have any sort of malfunction as her history points towards vomiting. and aspiration pneumonia. -NPO and Nothing per PEG tube at this time. Possible UTI -UA concerning for infection, though likely chronic given patient is incontinent. -Currently on Vancomycin and Zosyn History of Brain Injury -Per son history of Brain aneurysm requiring surgery in [id number] -Patient has been hemiplegic of L arm and leg since -Discussed with son about patients poor prognosis, he would like a consult to discuss with Palliative. -Palliative consulted. Dispo: Telemetry DVT heparin subq (2) PEG tube malfunction: (3) Vomiting: (4) Brain injury: (5) Possible urinary tract infection: (6) Respiratory distress: Admission and Anticipated Discharge Date Admission Date: August 26, 2019 Subjective Patient remains non verbal. Updated family had palliative care meeting. Review of Systems Review of Systems: All systems reviewed & are unremarkable except as noted in HPI & below Physical Exam Physical Exam: Constitutional: + physical limitations, + language barrier. Does not appear to be in distress Eyes: + anicteric sclerae and PERRL; + EOM not intact (unable to determine, patient did not follow commands ) Neck: trachea midline, no thyromegaly Respiratory: normal respiratory effort (while on Bipap ) and symmetric chest movement; + not able to speak in complete sentence and no stridor Auscultation: lungs clear to auscultation bilaterally (front lung herman); no crackles, no rhonchi and no wheezes Cardiovascular: RRR, no murmur, no edema Gastrointestinal (Abdomen): Inspection/Auscultation: abdomen normal to inspection and normal bowel sounds; abdomen not distended, no abdominal edema and no high-pitched sounds Percussion/Palpation: abdomen soft; abdomen nontender and abdomen not firm PEG tube in place, no erythema noted surrounding tube insertion site Musculoskeletal: Head/Neck/Chest: + head abnormal to inspection (R crainum deformity, chronic, 2/2 prior surgery) Gait: + abnormal gait Able to grasp with R hand. L arm and leg immobile. Skin: no rashes, warm and dry Neurologic: awake Speech / Cognition: + abnormal speech (minimally verbal) Cranial Nerves: PERRL Psychiatric: Orientation: alert Eye Contact: + poor eye contact Speech: + mute Results & Data Results & Data ([facility]) Vital Signs (Past 12 Hours) Vital Signs Temp Pulse Resp BP BP Pulse Ox 08/27/19 15:11 37.0 C 97 H 18 152/70 H 91 08/27/19 15:00 37.5 C 89 24 111/74 94 08/27/19 12:38 36.8 C 81 20 120/51 L 92 08/27/19 09:50 92 08/27/19 08:03 36.6 C 86 20 125/54 L 80 L 08/27/19 07:04 36.6 C 84 18 122/76 97 PG Care Time/CCT Total # of Minutes Spent Total Time Spent with Patient: Total time spent is greater than 50% in coordination of care (as documented) at patient's floor/unit and/or counseling patient: Coding Level of Care Code 47592 Subseq Hosp Care Lvl 3 Diagnoses Aspiration pneumonia J69.0 PEG tube malfunction K94.23 Vomiting R11.10 Brain injury S06.9X9A Possible urinary tract infection R39.89 Respiratory distress R06.03 Time Spent (min) 35
[2019-08-27] MEDS ORDERED: VANCOMYCIN TROUGH ONE (19:30)
[2019-08-27] MEDS ORDERED: NON-FORMULARY MEDICATION (Gabapentin 400 MG) feeding tube SCH (21:00)
[2019-08-27] MEDS: LACTULOSE SYRUP 20 GM/30 ML UDC PEG SCH (21:01)
[2019-08-27] MEDS: GABAPENTIN 250 MG/5 ML 470 ML BTL PEG SCH (21:02)
[2019-08-27] MEDS: clonazePAM 0.5 MG TAB PO SCH (21:06)
--- NOTE | 2019-08-27 22:34 | Pharmacy Report ---
Pharmacy Abx Dose Short Note - Date of Service August 27, 2019 - Assessment & Plan Assessment 63 year old F receiving IV Vancomycin for treatment of pneumonia Day # 2 of antimicrobial therapy. Plan Vancomycin Patient meets criteria for vancomycin AUC dosing nomogram AUC/MELINDA is the preferred PK/PD target for vancomycin Target AUC/MELINDA = 400-600 Trough level of 17.9 mcg/mL is predicted to achieve target AUC/MELINDA AUC guided dosing is effective and associated with decreased risk of nephrotoxicity * Continue dose of 1000 mg IV every 8 hours Pharmacy will continue to follow and will adjust dose/frequency as necessary. Thank you.
[2019-08-28] MEDS ORDERED: ACETAMINOPHEN SOLN 650 MG/20.3 ML UDC GT PRN (00:16)
[2019-08-28] MEDS: D5NSS + 20MEQ KCL 20 MEQ/1,000 ML BAG IV SCH ×2 (05:50→14:18)
[2019-08-28] MEDS: PIPERACILLIN/TAZOBACTAM 3.375 GM/115 ML BAG IV SCH ×2 (05:50→14:19)
[2019-08-28] MEDS: methylPREDNISolone 40 MG in SYRINGE 0 ML IV SCH ×2 (05:50→14:18)
[2019-08-28] MEDS: VANCOMYCIN HCL 1,000 MG in SODIUM CHLORIDE 0.9% 250 ML IV SCH ×2 (06:15→14:18)
[2019-08-28] MEDS: CHECK SCOPOLAMINE PATCH PLACEMENT SCH ×2 (09:01→17:13)
[2019-08-28] MEDS: clonazePAM 0.5 MG TAB PO SCH (09:02)
[2019-08-28] MEDS: GABAPENTIN 250 MG/5 ML 470 ML BTL PEG SCH (09:02)
[2019-08-28] MEDS: HEPARIN SOD 5,000 UNIT/0.5 ML VIAL SQ SCH (09:02)
[2019-08-28] MEDS: LACTULOSE SYRUP 20 GM/30 ML UDC PEG SCH (09:02)
[2019-08-28] MEDS ORDERED: SENNA 8.6 MG TAB PO SCH (11:00)
[2019-08-28] MEDS ORDERED: MAGNESIUM HYDROXIDE SUSP 30 ML UDC PEG PRN (11:00)
[2019-08-28] MEDS ORDERED: bisacodyL 10 MG SUPP PR PRN (11:00)
[2019-08-28] MEDS ORDERED: POTASSIUM CHLORIDE 20 MEQ/15 ML UDC PEG SCH (11:00)
[2019-08-28] MEDS ORDERED: FAMOTIDINE 20 MG TAB PO SCH (11:00)
--- NOTE | 2019-08-28 11:24 | Gastrointestinal Consultation ---
Date of Consultation August 28, 2019 Assessment & Plan (1) Vomitin63 y/o female with PMHx PEG placement (most recently 11/16/18), admitted with fever, vomiting, dx with pneumonia (aspiration) and tx with IV ABX, Zofran, IVF. GI consulted for vomiting, concern for PEG malfunction. - CTAP had been ordered to further evaluate her vomiting, however pt has been evaluated by palliative medicine who relayed to me that pt is to be placed on comfort measures and would not like further testing, procedures done; would like to cancel CTAP; this has been done. - Please call with any acute changes, questions or concerns. Please see addendum below with additional recommendation from my supervising physician. Supervising Physician Co-Signing Physician Notes I performed a history and physical examination of the patient today, including specifically on history- vomiting. I have discussed the patient's management with the advanced practitioner. Please refer to the nurse practitioner's note for the documented findings and plan of care. patient is now comfort care hence no further input needed from our service. History of Present Illness Reason for Consultation: vomiting/ peg tube malfunction? Attending Physician: Won Marsh History of Present Illness Patient is a 63 year old female with PMHx Brain Aneurysm s/p brain surgery , PEG Tube, L side Hemiplegia, Anxiety, and Depression who presented 08/26/19 in acute respiratory distress, vomiting, and fever, found to have concern for aspiration pneumonia. CXR on arrival noted Small parenchymal infiltrates left base and right upper lung. KUB on arrival with PEG tube left upper abdomen left lateral to the L1 vertebral body; nonobstructive bowel pattern. Labs with WBC, HGB WNL; plts noted to be low (98, now 74; intermittently so for the last few years), normal transaminases, slightly elevated ALP 153 -> 95), normal tbili. Is being tx with IV ABX. Not currently febrile. Pt had been noted to be vomiting at her residence ([facility]). She has been tx with Zofra n, IVF. GI consulted for vomiting, concern for PEG Malfunction. This AM noted to have vomiting of "strong smelling brown liquid" and gagging. Pt has had several PEGs since having suffered brain injury in 2007; most recently PEG changed 11/16/18 - with placement of low profile 20 Fr Arsenio-Murrell gastrostromy tube (prior to that, PEG placed 02/2017, externally removable Devonte Cook 20Fr). EGD 11/16/18: Normal upper third of esophagus, middle third of esophagus and lower third of esophagus. Small hiatal hernia. A gastric tube was found in the stomach. Removal was successful. Intact gastrostomy with a patent G-tube present. Normal examined duodenum. Allergies Allergy/AdvReac Type Severity Reaction Status Date / Time morphine Allergy Intermediate Hives Verified 08/26/19 17:14 Sulfa (Sulfonamide Allergy Unknown Unknown Verified 08/26/19 17:14 Antibiotics) Home Medications Home Medications Medication Instructions Recorded Confirmed Type Fleet Enema 118 ml WA DIRECTED PRN 11/14/18 08/26/19 History Probiotic 0 mmu cells FEEDING TUBE BID 11/14/18 08/26/19 History acetaminophen [Tylenol] 650 mg FEEDING TUBE Q6H PRN 11/14/18 08/26/19 History bisacodyl [Dulcolax (bisacodyl)] 10 mg WA DIRECTED PRN 11/14/18 08/26/19 History clonazepam [Klonopin] 0.5 mg FEEDING TUBE BID 11/14/18 08/26/19 History docusate sodium See Rx Instructions .ROUTE .COMPLEX 11/14/18 08/26/19 History famotidine 20 mg FEEDING TUBE DAILY 11/14/18 08/26/19 History gabapentin 400 mg FEEDING TUBE BID 11/14/18 08/26/19 History lactulose 30 g FEEDING TUBE BID 11/14/18 08/26/19 History magnesium hydroxide [Milk of 15 ml FEEDING TUBE DIRECTED PRN 11/14/18 08/26/19 History Magnesia] oxycodone 10 mg FEEDING TUBE Q6H PRN 11/14/18 08/26/19 History sennosides [senna] 8.6 mg FEEDING TUBE BID 11/14/18 08/26/19 History Tar Gel 1 applic TOPICAL 2XWK 08/26/19 08/26/19 History cholecalciferol (vitamin D3) 4,000 unit FEEDING TUBE DAILY 08/26/19 08/26/19 History multivitamin with minerals See Rx Instructions .ROUTE .COMPLEX 08/26/19 08/26/19 History [Multiple Vitamin-Minerals] potassium chloride 10 meq FEEDING TUBE BID 08/26/19 08/26/19 History selenium sulfide [Selsun Blue] 1 applic TOPICAL 2XWK 08/26/19 08/26/19 History Patient History Medical History Anxiety Aphasia Contracture of knee R/L Dementia UNSPECIFIED WITH BEHAVIORIAL DISTURBANCE Depression Dysphagia GERD (gastroesophageal reflux disease) Hemiplegia AND HEMIPARESIS-LEFT SIDE Hydrocephalus COMMUNICATING Hypertension Stroke Tremor Surgical History History of brain surgery History of gastrostomy tube placement Social History Preferred Language: Pakistani Communication Ability: 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 Beliefs That Will Affect Care: None Current Living Situation: Long Term Current Living Situation Comment: [facility]IDENT OF [facility] Feels Safe at Home: Yes Smoking Status: Never smoker Hx Alcohol Use: No Hx Substance Use: No Review of Systems Review of Systems: Unobtainable due to cognitive status Physical Exam Constitutional: well developed; no acute distress Respiratory: normal respiratory effort; no respiratory distress Neurologic: Awake and alert Results & Data ([facility]) Vital Signs (Past 12 Hours) Vital Signs Temp Pulse Pulse Resp BP Pulse Ox 08/28/19 07:39 37.2 C 60 18 130/68 96 08/28/19 03:58 37.2 C 54 L 16 111/80 93 08/28/19 00:00 38.0 C H 64 18 149/87 H 96 08/27/19 23:59 62 Laboratory Results Laboratory Results - last 48 hr 08/26/19 08/26/19 08/26/19 16:40 16:40 16:40 WBC RBC Hgb Hct MCV MCH MCHC RDW Std Deviation RDW Coeff of Julia Plt Count MPV Immature Gran % (Auto) Neut % (Auto) Lymph % (Auto) Weld % (Auto) Eos % (Auto) Baso % (Auto) Immature Gran # (Auto) Neut # (Auto) Lymph # (Auto) Weld # (Auto) Eos # (Auto) Baso # (Auto) PT INR APTT PTT Ratio ABG pH ABG pCO2 ABG pO2 ABG HCO3 ABG O2 Saturation ABG Base Excess Gabriel Test Barometric Pressure Oxygen Given Sodium Potassium Chloride Carbon Dioxide Anion Gap BUN Creatinine Est Cr Clr Drug Dosing Est GFR ( Amer) Est GFR (Non-Af Amer) BUN/Creatinine Ratio Glucose Lactate Calcium Phosphorus Magnesium Total Bilirubin AST ALT Alkaline Phosphatase Troponin I Total Protein Albumin Globulin Albumin/Globulin Ratio Procalcitonin Urine Color Urine Appearance Urine pH Ur Specific [place] Urine Protein Urine Glucose (UA) Urine Ketones Urine Blood Urine Nitrite Urine Bilirubin Urine Urobilinogen Ur Leukocyte Esterase Urine WBC (Auto) Urine RBC (Auto) U Hyaline Cast (Auto) U Epithel Cells (Auto) Urine Bacteria (Auto) Nasal Screen MRSA (PCR) Vancomycin Trough COVID-19 PCR NEGATIVE Influenza Type A (PCR) Neg for Influ A Influenza Type B (PCR) Neg for Influ B SARS-CoV-2 RNA (RT-PCR) Cancelled 08/26/19 08/26/19 08/26/19 16:46 16:46 16:46 WBC 5.76 RBC 5.26 Hgb 17.0 H Hct 52.4 H MCV 99.6 MCH 32.3 MCHC 32.4 RDW Std Deviation 49.9 H RDW Coeff of Julia 13.6 Plt Count 98 L MPV 11.7 H Immature Gran % (Auto) 0.2 Neut % (Auto) 77.7 Lymph % (Auto) 18.6 Weld % (Auto) 3.3 Eos % (Auto) 0.0 Baso % (Auto) 0.2 Immature Gran # (Auto) 0.01 Neut # (Auto) 4.48 Lymph # (Auto) 1.07 L Weld # (Auto) 0.19 Eos # (Auto) 0.00 Baso # (Auto) 0.01 PT 11.9 INR 1.1 APTT 23.6 PTT Ratio 0.8 ABG pH ABG pCO2 ABG pO2 ABG HCO3 ABG O2 Saturation ABG Base Excess Gabriel Test Barometric Pressure Oxygen Given Sodium 136 Potassium Chloride 103 Carbon Dioxide 26 Anion Gap 8.0 BUN 18 Creatinine 0.66 Est Cr Clr Drug Dosing Not Reportable Est GFR ( Amer) 107.4 Est GFR (Non-Af Amer) 92.7 BUN/Creatinine Ratio 26.7 H Glucose 130 H Lactate Calcium 8.9 Phosphorus Magnesium TNP Total Bilirubin 0.9 AST ALT 38 Alkaline Phosphatase 153 H Troponin I < 0.015 Total Protein 7.7 Albumin 2.8 L Globulin 4.9 H Albumin/Globulin Ratio 0.6 L Procalcitonin Urine Color Urine Appearance Urine pH Ur Specific [place] Urine Protein Urine Glucose (UA) Urine Ketones Urine Blood Urine Nitrite Urine Bilirubin Urine Urobilinogen Ur Leukocyte Esterase Urine WBC (Auto) Urine RBC (Auto) U Hyaline Cast (Auto) U Epithel Cells (Auto) Urine Bacteria (Auto) Nasal Screen MRSA (PCR) Vancomycin Trough COVID-19 PCR Influenza Type A (PCR) Influenza Type B (PCR) SARS-CoV-2 RNA (RT-PCR) 08/26/19 08/26/19 08/26/19 16:46 16:46 18:12 WBC RBC Hgb Hct MCV MCH MCHC RDW Std Deviation RDW Coeff of Julia Plt Count MPV Immature Gran % (Auto) Neut % (Auto) Lymph % (Auto) Weld % (Auto) Eos % (Auto) Baso % (Auto) Immature Gran # (Auto) Neut # (Auto) Lymph # (Auto) Weld # (Auto) Eos # (Auto) Baso # (Auto) PT INR APTT PTT Ratio ABG pH ABG pCO2 ABG pO2 ABG HCO3 ABG O2 Saturation ABG Base Excess Gabriel Test Barometric Pressure Oxygen Given Sodium Potassium 3.6 Chloride Carbon Dioxide Anion Gap BUN Creatinine Est Cr Clr Drug Dosing Est GFR ( Amer) Est GFR (Non-Af Amer) BUN/Creatinine Ratio Glucose Lactate 2.5 H* Calcium Phosphorus Magnesium 2.0 Total Bilirubin AST 12 L ALT Alkaline Phosphatase Troponin I Total Protein Albumin Globulin Albumin/Globulin Ratio Procalcitonin Cancelled Urine Color Urine Appearance Urine pH Ur Specific [place] Urine Protein Urine Glucose (UA) Urine Ketones Urine Blood Urine Nitrite Urine Bilirubin Urine Urobilinogen Ur Leukocyte Esterase Urine WBC (Auto) Urine RBC (Auto) U Hyaline Cast (Auto) U Epithel Cells (Auto) Urine Bacteria (Auto) Nasal Screen MRSA (PCR) Vancomycin Trough COVID-19 PCR Influenza Type A (PCR) Influenza Type B (PCR) SARS-CoV-2 RNA (RT-PCR) 08/26/19 08/26/19 08/26/19 18:12 18:50 19:51 WBC RBC Hgb Hct MCV MCH MCHC RDW Std Deviation RDW Coeff of Julia Plt Count MPV Immature Gran % (Auto) Neut % (Auto) Lymph % (Auto) Weld % (Auto) Eos % (Auto) Baso % (Auto) Immature Gran # (Auto) Neut # (Auto) Lymph # (Auto) Weld # (Auto) Eos # (Auto) Baso # (Auto) PT INR APTT PTT Ratio ABG pH 7.41 ABG pCO2 44 ABG pO2 43 L ABG HCO3 27 H ABG O2 Saturation 77.6 L ABG Base Excess 2.0 H Gabriel Test POS Barometric Pressure 735.9 Oxygen Given FI O2 80% Sodium Potassium Chloride Carbon Dioxide Anion Gap BUN Creatinine Est Cr Clr Drug Dosing Est GFR ( Amer) Est GFR (Non-Af Amer) BUN/Creatinine Ratio Glucose Lactate 2.1 H* Calcium Phosphorus Magnesium Total Bilirubin AST ALT Alkaline Phosphatase Troponin I Total Protein Albumin Globulin Albumin/Globulin Ratio Procalcitonin 1.11 H Urine Color Urine Appearance Urine pH Ur Specific [place] Urine Protein Urine Glucose (UA) Urine Ketones Urine Blood Urine Nitrite Urine Bilirubin Urine Urobilinogen Ur Leukocyte Esterase Urine WBC (Auto) Urine RBC (Auto) U Hyaline Cast (Auto) U Epithel Cells (Auto) Urine Bacteria (Auto) Nasal Screen MRSA (PCR) Vancomycin Trough COVID-19 PCR Influenza Type A (PCR) Influenza Type B (PCR) SARS-CoV-2 RNA (RT-PCR) 08/26/19 08/26/19 08/27/19 20:50 22:06 07:29 WBC 7.38 RBC 4.54 Hgb 14.5 Hct 44.1 MCV 97.1 MCH 31.9 MCHC 32.9 RDW Std Deviation 47.3 H RDW Coeff of Jluia 13.3 Plt Count 74 L MPV 12.2 H Immature Gran % (Auto) 0.5 Neut % (Auto) 86.4 Lymph % (Auto) 8.8 Weld % (Auto) 4.2 Eos % (Auto) 0.0 Baso % (Auto) 0.1 Immature Gran # (Auto) 0.04 H Neut # (Auto) 6.37 Lymph # (Auto) 0.65 L Weld # (Auto) 0.31 Eos # (Auto) 0.00 Baso # (Auto) 0.01 PT INR APTT PTT Ratio ABG pH ABG pCO2 ABG pO2 ABG HCO3 ABG O2 Saturation ABG Base Excess Gabriel Test Barometric Pressure Oxygen Given Sodium Potassium Chloride Carbon Dioxide Anion Gap BUN Creatinine Est Cr Clr Drug Dosing Est GFR ( Amer) Est GFR (Non-Af Amer) BUN/Creatinine Ratio Glucose Lactate Calcium Phosphorus Magnesium Total Bilirubin AST ALT Alkaline Phosphatase Troponin I Total Protein Albumin Globulin Albumin/Globulin Ratio Procalcitonin Urine Color Dark Yellow Urine Appearance Clear Urine pH 7.0 Ur Specific [place] 1.037 H Urine Protein 1+ H Urine Glucose (UA) Negative Urine Ketones 1+ H Urine Blood Trace H Urine Nitrite Negative Urine Bilirubin Negative Urine Urobilinogen Negative Ur Leukocyte Esterase 1+ H Urine WBC (Auto) >30 H Urine RBC (Auto) 0-4 U Hyaline Cast (Auto) 10-30 H U Epithel Cells (Auto) 10-20 H Urine Bacteria (Auto) 1+ H Nasal Screen MRSA (PCR) Positive A Vancomycin Trough COVID-19 PCR Influenza Type A (PCR) Influenza Type B (PCR) SARS-CoV-2 RNA (RT-PCR) 08/27/19 08/27/19 07:29 19:40 WBC RBC Hgb Hct MCV MCH MCHC RDW Std Deviation RDW Coeff of Julia Plt Count MPV Immature Gran % (Auto) Neut % (Auto) Lymph % (Auto) Weld % (Auto) Eos % (Auto) Baso % (Auto) Immature Gran # (Auto) Neut # (Auto) Lymph # (Auto) Weld # (Auto) Eos # (Auto) Baso # (Auto) PT INR APTT PTT Ratio ABG pH ABG pCO2 ABG pO2 ABG HCO3 ABG O2 Saturation ABG Base Excess Gabriel Test Barometric Pressure Oxygen Given Sodium 142 Potassium 4.7 D Chloride 115 H Carbon Dioxide 22 Anion Gap 5.0 BUN 12 Creatinine 0.42 L Est Cr Clr Drug Dosing 131.1 Est GFR ( Amer) 124.7 Est GFR (Non-Af Amer) 107.6 BUN/Creatinine Ratio 27.9 H Glucose 150 H Lactate Calcium 8.4 L Phosphorus 1.5 L* Magnesium 2.2 Total Bilirubin 0.6 AST 11 L ALT 29 Alkaline Phosphatase 95 Troponin I Total Protein 6.2 L Albumin 2.1 L Globulin 4.1 H Albumin/Globulin Ratio 0.5 L Procalcitonin Urine Color Urine Appearance Urine pH Ur Specific [place] Urine Protein Urine Glucose (UA) Urine Ketones Urine Blood Urine Nitrite Urine Bilirubin Urine Urobilinogen Ur Leukocyte Esterase Urine WBC (Auto) Urine RBC (Auto) U Hyaline Cast (Auto) U Epithel Cells (Auto) Urine Bacteria (Auto) Nasal Screen MRSA (PCR) Vancomycin Trough 17.4 COVID-19 PCR Influenza Type A (PCR) Influenza Type B (PCR) SARS-CoV-2 RNA (RT-PCR)
[2019-08-28] MEDS ORDERED: FIBERSOURCE HN 1.2 CAL 1000 ML BAG GT SCH (11:30)
[2019-08-28] MEDS ORDERED: CHOLECALCIFEROL 1,000 UNITS 25 MCG TAB GT SCH (11:30)
[2019-08-28] MEDS ORDERED: DOCUSATE SODIUM SYRUP 100 MG/10 ML UDC PEG SCH (11:30)
[2019-08-28] MEDS ORDERED: LACTOBACILLUS ACIDOPHILUS (FLORANEX) TAB PO SCH (12:00)
--- NOTE | 2019-08-28 12:06 | Electrocardiogram Report ---
Test Reason : Blood Pressure : / mmHG Vent. Rate : 048 BPM Atrial Rate : 048 BPM P-R Int : 126 ms QRS Dur : 086 ms QT Int : 452 ms P-R-T Axes : 040 -11 004 degrees QTc Int : 403 ms Sinus bradycardia Nonspecific T wave abnormality Abnormal ECG When compared with ECG of 28-AUG-2019 04:17, (unconfirmed) No significant change was found Confirmed by Severino Armendariz ([id number]) on 08/28/2019 12:05:53 PM [facility] Confirmed By:Severino Armendariz
[2019-08-28 13:05] LABS: Potassium 4.1 mmol/L (3.5-5.1)
[2019-08-28 13:10] LABS: Magnesium 2.2 mg/dl (1.8-2.4)
[2019-08-28 13:38] LABS: Creatinine Clr Calc Pharmacy 97.3 ml/min; Est GFR (African American) 112.7; Est GFR (Non-African American) 97.3
[2019-08-28 13:39] LABS: Calcium 8.7 mg/dl (8.5-10.1)
[2019-08-28 13:40] LABS: Phosphorus 1.5 mg/dl (2.5-4.9)
[2019-08-28 13:41] LABS: Albumin Level 2.4 gm/dl (3.4-5.0); Bilirubin,Total 0.6 mg/dl (0.2-1); Globulin 4.1 gm/dl (2.5-4.0); Total Protein 6.5 gm/dl (6.4-8.2)
[2019-08-28 13:43] LABS: Albumin Globulin Ratio 0.6 (0.9-2); BUN Creatinine Ratio 17.7 (10-20)
[2019-08-28] MEDS ORDERED: ONDANSETRON 4 MG OD TAB SL PRN (14:30)
[2019-08-28] MEDS ORDERED: ACETAMINOPHEN 650 MG SUPP PR PRN (14:30)
[2019-08-28] MEDS ORDERED: ATROPINE SULFATE 1% OP SOLN 2 ML BTL SL PRN (14:30)
--- NOTE | 2019-08-28 15:52 | Palliative Care Progress Note ---
Date of Service August 28, 2019 Assessment & Plan (1) Goals of care, counseling/discussion: -63 year old female patient with PMH brain aneurysm s/p brain surgery 2007/2008, PEG Tube, left sided hemiplegia, anxiety, and depression, presented to the ED yesterday in acute respiratory distress with vomiting and a fever. Patient resides at the [facility], they reported patient had a fever and was given Tylenol. Her respiratory status continued to worsen and she had a vomiting episode. In ED, patient had a witnessed vomiting episode as well. She was on a non-rebreather but eventually was placed on bipap. CXR showed small parenchymal infiltrates left base and right upper lung. Patient lost IV access, in light of a possible complete bowel obstruction treating a possible pneumonia or UTI will likely not change her prognosis. Family does not want a central line placed for IV antibiotics. Will transition to comfort care only. -Comfort meds including morphine, Haldol, Ativan and Klonopin can be given sublingual, would avoid meds via G-tube due to bowel obstruction. -Discussed placing PEG tube to gravity drainage, discussed with nursing. -Discussed patient's prognosis is several days-son contacting his sister, Donna, as well as other family to visit. -Patient will likely not be able to be transferred back to the [facility] due to symptoms of fecal vomiting-we will put discharge on hold. If vomiting is controlled and patient lingers more than a few days will reconsider. -We will continue to follow and provide support to family. (2) Respiratory distress: (3) Aspiration pneumonia: (4) Vomiting: Subjective Patient awake alert, able to answer simple yes and no questions appropriately, patient son at bedside. Notified by attending physician, Dr. Marsh, that patient has started vomiting fecal material. Spoke with son at length-these new symptoms likely indicate a complete bowel obstruction. The only treatment would be surgery-family does not want any aggressive measures, knows she would not be a good surgical candidate. Family has opted for comfort care-canceled CT scan as well as GI consult, discussed prognosis - several days. Will discontinue meds via PEG, start comfort meds sublingually. Will have nursing attempt to place tubing at PEG tube site and placed to gravity drainage. Discussed with nursing. Collaborated with case management. [facility] will likely not be able to handle symptoms of complete bowel obstruction with vomiting of stool. Will see if able to place PEG tube to gravity drainage to minimize vomiting. Review of Systems Review of Systems: Patient denied pain, fever, chills, shortness of breath, or abdominal pain Physical Exam Physical Exam: PE: Patient awake and alert, able to nod yes or no to questions HEENT: Hearing and within normal limits, excess oral secretions Respirations: Coarse breath sounds bilaterally CV: Regular rate Abdomen: Absent bowel sounds, nontender to palpation Extremities: Warm to touch, no mottling Neuro: Comprehension of simple questions waxes and wanes, was alert and answered appropriately on exam today. Results & Data Vital Signs (Past 12 Hours) Vital Signs Temp Pulse Resp BP Pulse Ox 08/28/19 12:55 99.0 F 60 18 164/70 H 96 08/28/19 07:39 99.0 F 60 18 130/68 96 08/28/19 03:58 99.0 F 54 L 16 111/80 93 PG Care Time/CCT Total # of Minutes Spent Total Time Spent with Patient: Total time spent 65 minutes on 2 separate visits discussing patient's current status, prognosis as well as establishing goals of care with patient's son at bedside. Prolonged Care Time Prolonged Care Time: Yes Total Prolonged Care Time: 30 Coding Level of Care Code 80423 Subseq Hosp Care Lvl 3 Diagnoses Goals of care, counseling/discussion Z71.89 Respiratory distress R06.03 Aspiration pneumonia J69.0 Vomiting R11.10 Additional Codes Prolonged Care Time - Prolonged Care Time: Yes ([id number]) Time Spent (min) 65 Critical Care Time Prolonged Care Time Prolonged Care Time: Yes Total Prolonged Care Time: 30
[2019-08-28] MEDS: ATROPINE SULFATE 1% OP SOLN 2 ML BTL PO PRN ×2 (17:13→21:34)
[2019-08-28] MEDS: LORazepam 0.5 MG TAB SL PRN (21:34)
--- NOTE | 2019-08-28 22:36 | Hospitalist Progress Note ---
Date of Service August 28, 2019 Assessment & Plan (1) Aspiration pneumonia: Patient is a 63 year old female with PMHx Brain Aneurysm s/p brain surgery , PEG Tube, L side Hemiplagia, Anxiety, and Depression who presented in acute respiratory distress, vomiting, and fever. ED Course: 2L NSS, Zosyn 4.5gm IV, Vancomycin 1500mg IV, Tylenol 1000mg IV, Zofran 4mg IV Acute respiratory failure with hypoxia in setting of aspiration pneumonia Patient had an episode of vomiting fecal matter. Initially consulted GI but due to transitioning to SHOE SALESMAN, will transfer to -Although concern for aspiration pneumonia, as patient is a DNI. However, patient lost IV access. Had discussion with son, patient will need a central line as attempt to place peripheral line via ultrasound was unsuccessful via IV team However son wants to transition her to comfort measures. -will hold steroids and antibiotics. -NPO Vomiting fecal matter. -Patient was noted to have vomited at [facility] and in the ED -Was suctioned in ED post emesis and given Zofran which has controlled her vomiting. -NPO Hx PEG Tube Malfunction -Patients son notes malfunction that required replacement in 11/16/2018 of patients Devonte Cook 20Fr PEG at the time. -PEG was replaced then with a low profile 20 Fr Arsenio-Murrell gastrostomy tube. -Abdominal exam appears negative at this time, but low suspicion for reoccurrence of malfunction. -At this point does not appear to have any sort of malfunction as her history points towards vomiting. and aspiration pneumonia. -NPO and Nothing per PEG tube at this time. Possible UTI -UA concerning for infection, though likely chronic given patient is incontinent. stopping antibiotics. History of Brain Injury -Per son history of Brain aneurysm requiring surgery in [id number] -Patient has been hemiplegic of L arm and leg since -Discussed with son about patients poor prognosis, she will be placed on comfort measures. -Palliative consulted. Dispo: Telemetry DVT heparin subq Will transfer to medical. Spent 65 minutes in management of patient. from 9:00 to 9:20 from 10:30 to 10:40 from 13:00 to 13:20 from 15:00 to 15:15 (2) PEG tube malfunction: (3) Vomiting: (4) Brain injury: (5) Possible urinary tract infection: (6) Respiratory distress: Admission and Anticipated Discharge Date Admission Date: August 26, 2019 Subjective Patient had an episode of throwing up fecal matter as per nurse. It was dark brown and foul smelling. I had extensive discussion with the son on the phone and in person to discuss goals of care. Son does wants to focus on comfort and forego further treatment as patient may have cancer, will need a central line. D.W palliative care Review of Systems Review of Systems: Unobtainable due to cognitive status Physical Exam Physical Exam: Constitutional: + physical limitations, + language barrier. Does not appear to be in distress Eyes: + anicteric sclerae and PERRL; + EOM not intact (unable to determine, patient did not follow commands ) Neck: trachea midline, no thyromegaly Respiratory: normal respiratory effort (while on Bipap ) and symmetric chest movement; + not able to speak in complete sentence and no stridor Auscultation: lungs clear to auscultation bilaterally (front lung herman); no crackles, no rhonchi and no wheezes Cardiovascular: RRR, no murmur, no edema Gastrointestinal (Abdomen): Inspection/Auscultation: abdomen normal to inspection and normal bowel sounds; abdomen not distended, no abdominal edema and no high-pitched sounds Percussion/Palpation: abdomen soft; abdomen nontender and abdomen not firm PEG tube in place, no erythema noted surrounding tube insertion site Musculoskeletal: Head/Neck/Chest: + head abnormal to inspection (R crainum deformity, chronic, 2/2 prior surgery) Gait: + abnormal gait Able to grasp with R hand. L arm and leg immobile. Skin: no rashes, warm and dry Neurologic: awake Speech / Cognition: + abnormal speech (minimally verbal) Cranial Nerves: PERRL Psychiatric: Orientation: alert Eye Contact: + poor eye contact Speech: + mute Results & Data Results & Data ([facility]) Vital Signs (Past 12 Hours) Vital Signs Temp Pulse Resp BP Pulse Ox 08/28/19 12:55 37.2 C 60 18 164/70 H 96 PG Care Time/CCT Total # of Minutes Spent Total Time Spent with Patient: Total time spent is greater than 50% in coordination of care (as documented) at patient's floor/unit and/or counseling patient: Prolonged Care Time Prolonged Care Time: Yes Total Prolonged Care Time: 65 Spent 65 minutes in management of patient. from 9:00 to 9:20 from 10:30 to 10:40 from 13:00 to 13:20 from 15:00 to 15:15 Coding Level of Care Code 10964 Subseq Hosp Care Lvl 3 Diagnoses Aspiration pneumonia J69.0 PEG tube malfunction K94.23 Vomiting R11.10 Brain injury S06.9X9A Possible urinary tract infection R39.89 Respiratory distress R06.03 Additional Codes Prolonged Care Time - Prolonged Care Time: Yes ([id number]) Time Spent (min) 65
[2019-08-29] MEDS: CHECK SCOPOLAMINE PATCH PLACEMENT SCH ×4 (00:02→23:52)
[2019-08-29] MEDS: LORazepam 0.5 MG TAB SL PRN ×4 (04:56→20:22)
[2019-08-29] MEDS ORDERED: CHOLECALCIFEROL 1,000 UNITS 25 MCG TAB PEG SCH (09:00)
[2019-08-29] MEDS: ATROPINE SULFATE 1% OP SOLN 2 ML BTL PO PRN (16:34)
[2019-08-29] MEDS: haloperidoL 1 MG TAB PO PRN ×2 (17:24→23:52)
--- NOTE | 2019-08-29 22:51 | Hospitalist Progress Note ---
Date of Service August 29, 2019 Assessment & Plan (1) Aspiration pneumonia: Patient is a 63 year old female with PMHx Brain Aneurysm s/p brain surgery , PEG Tube, L side Hemiplagia, Anxiety, and Depression who presented in acute respiratory distress, vomiting, and fever. ED Course: 2L NSS, Zosyn 4.5gm IV, Vancomycin 1500mg IV, Tylenol 1000mg IV, Zofran 4mg IV Acute respiratory failure with hypoxia in setting of aspiration pneumonia Patient had an episode of vomiting fecal matter. Initially consulted GI but due to transitioning to DSP ENGINEER, will transfer to -Although concern for aspiration pneumonia, as patient is a DNI. However, patient lost IV access. Had discussion with son, patient will need a central line as attempt to place peripheral line via ultrasound was unsuccessful via IV team However son wants to transition her to comfort measures. -will hold steroids and antibiotics. -NPO -Patient is now on comfort measures. Vomiting fecal matter. -Patient was noted to have vomited at [facility] and in the ED -Was suctioned in ED post emesis and given Zofran which has controlled her vomiting. -NPO -now with peg tube to gravity drainage. Hx PEG Tube Malfunction -Patients son notes malfunction that required replacement in 11/16/2018 of patients Devonte Cook 20Fr PEG at the time. -PEG was replaced then with a low profile 20 Fr Arsenio-Murrell gastrostomy tube. -Abdominal exam appears negative at this time, but low suspicion for reoccurrence of malfunction. -At this point does not appear to have any sort of malfunction as her history points towards vomiting. and aspiration pneumonia. -NPO and Nothing per PEG tube at this time. Possible UTI -UA concerning for infection, though likely chronic given patient is incontinent. stopping antibiotics. History of Brain Injury -Per son history of Brain aneurysm requiring surgery in [id number] -Patient has been hemiplegic of L arm and leg since -Discussed with son about patients poor prognosis, she will be placed on comfort measures. -Palliative consulted. Dispo: Telemetry DVT heparin subq Had discussion with son, will hopefully discharge tomorrow, will discuss with palliative care. Spent 35 minutes in management of patient. (2) PEG tube malfunction: (3) Vomiting: (4) Brain injury: (5) Possible urinary tract infection: (6) Respiratory distress: Admission and Anticipated Discharge Date Admission Date: August 26, 2019 Subjective Patient has not had any new episodes of vomiting. Review of Systems Review of Systems: All systems reviewed & are unremarkable except as noted in HPI & below Physical Exam Physical Exam: Constitutional: + physical limitations, + language barrier. Does not appear to be in distress Eyes: + anicteric sclerae and PERRL; + EOM not intact (unable to determine, patient did not follow commands ) Neck: trachea midline, no thyromegaly Respiratory: normal respiratory effort; not able to speak in complete sentence and no stridor Auscultation: lungs clear to auscultation bilaterally (front lung herman); no crackles, no rhonchi and no wheezes Cardiovascular: RRR, no murmur, no edema Gastrointestinal (Abdomen): Inspection/Auscultation: abdomen normal to inspection and normal bowel sounds; abdomen not distended, no abdominal edema and no high-pitched sounds Percussion/Palpation: abdomen soft; abdomen nontender and abdomen not firm PEG tube in place, now draining dark brown fluid to gravity to bag, no erythema noted surrounding tube insertion site Musculoskeletal: Gait: + abnormal gait Able to grasp with R hand. L arm and leg immobile. Skin: no rashes, warm and dry Neurologic: awake Speech / Cognition: + abnormal speech (minimally verbal) Cranial Nerves: PERRL Psychiatric: Orientation: alert Eye Contact: + poor eye contact Speech: + mute PG Care Time/CCT Total # of Minutes Spent Total Time Spent with Patient: Total time spent is greater than 50% in coordination of care (as documented) at patient's floor/unit and/or counseling patient: Coding Level of Care Code 04975 Subseq Hosp Care Lvl 3 Diagnoses Aspiration pneumonia J69.0 Aspiration pneumonia type: due to vomit Laterality: bilateral Lung location: unspecified part of lung PEG tube malfunction K94.23 Vomiting R11.10 Brain injury S06.9X9A Possible urinary tract infection R39.89 Respiratory distress R06.03 (1) Aspiration pneumonia Aspiration pneumonia type: due to vomit Laterality: bilateral Lung location: unspecified part of lung Qualified Code(s): J69.0 - Pneumonitis due to inhalation of food and vomit
[2019-08-30] MEDS: LORazepam 0.5 MG TAB SL PRN (05:58)
[2019-08-30] MEDS: haloperidoL 1 MG TAB PO PRN (08:58)
[2019-08-30] MEDS: CHECK SCOPOLAMINE PATCH PLACEMENT SCH (09:20)
--- NOTE | 2019-08-30 14:09 | Palliative Care Progress Note ---
Date of Service August 30, 2019 Assessment & Plan (1) Goals of care, counseling/discussion: -63 year old female patient with PMH brain aneurysm s/p brain surgery 2007/2008, PEG Tube, left sided hemiplegia, anxiety, and depression, presented to the ED yesterday in acute respiratory distress with vomiting and a fever. Patient resides at the [facility], they reported patient had a fever and was given Tylenol. Her respiratory status continued to worsen and she had a vomiting episode. In ED, patient had a witnessed vomiting episode as well. She was on a non-rebreather but eventually was placed on bipap. CXR showed small parenchymal infiltrates left base and right upper lung. Patient lost IV access, in light of a possible complete bowel obstruction treating a possible pneumonia or UTI will likely not change her prognosis. Family does not want a central line placed for IV antibiotics. Will transition to comfort care only. -Comfort meds including morphine, Haldol, Ativan can be given sublingual, would avoid meds via G-tube due to bowel obstruction. - PEG tube to gravity drainage -draining loose fecal material-we will need to monitor closely for any clogging of the tube which may lead to vomiting tube can be flushed as needed. -Discussed patient's prognosis is several days with patient's son, patient's daughter is in town. -Patient is planned for transfer back to the [facility] with hospice care-has not had any vomiting for greater than 48 hours. Patient appears stable for transfer -provided support to son at bedside. (2) Respiratory distress: Resolved-stable on O2 at 2 L (3) Aspiration pneumonia: Resolving, low-grade temp, Tylenol for comfort (4) Vomiting: Likely due to to bowel obstruction-patient not a surgical candidate, f roberta does not wish aggressive care. G-tube now to gravity drainage-draining fecal material. Continue comfort meds Subjective Patient seen and examined, patient's son, Willian, at bedside. Case management also present for part of the visit. Collaborated with attending physician as well as hospice termite control representative. Patient is plan to return to the [facility] with hospice-[facility] Patient appears comfortable at rest, is nonverbal. Patient did reportedly have a bowel movement on 6 1 as well as 6 3-volume unknown. Patient had only 1 void yesterday-was incontinent, G-tube drainage was 500 cc yesterday of fecal material. In the past 24 hours she required 1 PRN atropine, for PRN Ativan and 3 PRN Haldol for comfort. Review of Systems Review of Systems: Patient can only nod yes or no, denied pain or discomfort Physical Exam Physical Exam: PE: Patient awake, alert, appears comfortable HEENT: EOMI, hearing appears to be within normal limits Respirations: Unlabored CV: Regular rate Abdomen: Soft, [id number] button with tubing draining into the Harry bag via gravity-watery fecal material in bag Neuro: Patient alert, still recognizes her son, nonverbal PG Care Time/CCT Total # of Minutes Spent Total Time Spent with Patient: Total time spent 35 minutes with greater than 50% of the time spent at bedside reviewing goals and plan of care with son and providing support regarding decision making. Coding Level of Care Code 57148 Subseq Hosp Care Lvl 3 Diagnoses Goals of care, counseling/discussion Z71.89 Respiratory distress R06.03 Aspiration pneumonia J69.0 Aspiration pneumonia type: due to vomit Laterality: bilateral Lung location: unspecified part of lung Vomiting R11.10 Time Spent (min) 35 (1) Aspiration pneumonia Aspiration pneumonia type: due to vomit Laterality: bilateral Lung location: unspecified part of lung Qualified Code(s): J69.0 - Pneumonitis due to inhalation of food and vomit
[2019-08-30] MEDS: SCOPOLAMINE 1.5 MG TDSY TD SCH (15:31)
--- NOTE | 2019-09-05 10:55 | Discharge Summary ---
Date of Service August 30, 2019 Admission HPI Per Admitting Provider Patient is a 63 year old female with PMHx Brain Aneurysm s/p brain surgery , PEG Tube, L side Hemiplagia, Anxiety, and Depression who presented in acute respiratory distress, vomiting, and fever. Patient was minimally able to provide history. All history was obtained from prior documentation review, discussion with the ED provider, and discussion with patients son Jr who is POA. Patient presents from [facility] where it was noted earlier this evening patient was febrile and was given tylenol. Upon reassessment of her, she was having increased respiratory distress and had an episode of vomiting. She presented via EMS and was placed initially on 15L non-rebreather for her respiratory distress. Patient also had an episode of yellow-mucus like vomit while being examined by the ED provider and was suctioned on the spot. Due to worsening respiratory status the patient was placed on Bipap and has had improved respiratory status since. Upon discussion with the son, he states that back in January patient had a very similar episode and it was noted she had a malfunction with her PEG tube which required replacement at the time. Principal Diagnosis Aspiration Pneumonia Discharge Exam Constitutional: + physical limitations, + language barrier. Does not appear to be in distress Eyes: + anicteric sclerae and PERRL; + EOM not intact (unable to determine, patient did not follow commands ) Neck: trachea midline, no thyromegaly Respiratory: normal respiratory effort; not able to speak in complete sentence and no stridor Auscultation: lungs clear to auscultation bilaterally (front lung herman); no crackles, no rhonchi and no wheezes Cardiovascular: RRR, no murmur, no edema Gastrointestinal (Abdomen): Inspection/Auscultation: abdomen normal to inspection and normal bowel sounds; abdomen not distended, no abdominal edema and no high-pitched sounds Percussion/Palpation: abdomen soft; abdomen nontender and abdomen not firm PEG tube in place, no erythema noted surrounding tube insertion site Musculoskeletal: Gait: + abnormal gait Able to grasp with R hand. L arm and leg immobile. Skin: no rashes, warm and dry Neurologic: awake Speech / Cognition: + abnormal speech (minimally verbal) Cranial Nerves: PERRL Psychiatric: Orientation: alert Eye Contact: + poor eye contact Speech: + mute Discharge Data Allergies Allergy/AdvReac Type Severity Reaction Status Date / Time morphine Allergy Intermediate Hives Verified 08/26/19 17:14 Sulfa (Sulfonamide Allergy Unknown Unknown Verified 08/26/19 17:14 Antibiotics) Consultations 08/26/19 20:27 ED Decision to Admit Stat 08/26/19 21:52 Consult Case Management - Discharge Planning Routine Consult Palliative Care Routine 08/28/19 14:31 Consult Case Management - Discharge Planning Routine Hospital Course (1) Aspiration pneumonia: Patient is a 63 year old female with PMHx Brain Aneurysm s/p brain surgery , PEG Tube, L side Hemiplagia, Anxiety, and Depression who presented in acute respiratory distress, vomiting, and fever. ED Course: 2L NSS, Zosyn 4.5gm IV, Vancomycin 1500mg IV, Tylenol 1000mg IV, Zofran 4mg IV Acute respiratory failure with hypoxia in setting of aspiration pneumonia Patient had an episode of vomiting fecal matter. Initially consulted GI but due to transitioning to TECHNICAL SUPPORT COORDINATOR, will transfer to -Although concern for aspiration pneumonia, as patient is a DNI. However, patient lost IV access. Had discussion with son, patient will need a central line as attempt to place peripheral line via ultrasound was unsuccessful via IV team However son wants to transition her to comfort measures. -will hold steroids and antibiotics. -NPO -Patient is now on comfort measures. will be discharged on hospice. D/W Son who is in agreement. Vomiting fecal matter. -Patient was noted to have vomited at [facility] and in the ED -Was suctioned in ED post emesis and given Zofran which has controlled her vomiting. -NPO -now with peg tube to gravity drainage. Hx PEG Tube Malfunction -Patients son notes malfunction that required replacement in 11/16/2018 of patients Devonte Cook 20Fr PEG at the time. -PEG was replaced then with a low profile 20 Fr Arsenio-Murrell gastrostomy tube. -Abdominal exam appears negative at this time, but low suspicion for reoccurrence of malfunction. -At this point does not appear to have any sort of malfunction as her history points towards vomiting. and aspiration pneumonia. -NPO and Nothing per PEG tube at this time. Possible UTI -UA concerning for infection, though likely chronic given patient is incontinent. stopping antibiotics. History of Brain Injury -Per son history of Brain aneurysm requiring surgery in [id number] -Patient has been hemiplegic of L arm and leg since -Discussed with son about patients poor prognosis, she will be placed on comfort measures. -Palliative consulted. Dispo: Telemetry DVT heparin subq (2) PEG tube malfunction: (3) Vomiting: (4) Brain injury: (5) Possible urinary tract infection: (6) Respiratory distress: Total Time Total Time Spent Total Time Spent (In Minutes): 31 Total Time Includes: Examination of the Patient, Discharge Planning, Medication Reconciliation and Communication With Other Providers Discharge Plan Discharge Items Patient Disposition: Hospice - Medical Facility Reason For Visit: RESPIRATORY DISTRESS Discharge Diagnosis: respiratory distress Activity: Resume your previous activity Non-emergency contact: Primary Care Provider Call non-emergency contact if: you have any medication questions Follow-up/Referrals: Rainer Garcia [Primary Care Provider] - Diet: Other - See Diet Comment Diet Comment: npo Addtl Attending Provider Instructions: being discharged to hospice. rememeber to flush peg tube when outout decreases or becomes too thick. Pending Studies at Discharge: No Stand-Alone Forms: Instilling [employer] Skilled Items Patient informed of condition?: No DNR: No Discharge Level of Care: Acute rehab Communicable Disease: No Discharge Prognosis: Stable Lines: None Urinary Catheter: No Medications and DC Order Prescriptions: New lorazepam 0.5 mg Tablet 0.5 mg sublingual Q4H PRN (Reason: agitation/sob) Qty: 30 RF: 0 atropine 1 % Drops 4 drp sublingual Q1H PRN (Reason: secretions) Qty: 15 RF: 0 acetaminophen [Feverall] 650 mg Suppository 650 mg NM Q6H PRN (Reason: pain) Qty: 10 RF: 0 haloperidol 1 mg Tablet 1 mg PO Q2H PRN (Reason: agitation) Qty: 10 RF: 0 bisacodyl 10 mg Suppository 10 mg NM Q3D PRN (Reason: constipation) Qty: 7 RF: 0 scopolamine base [Transderm-Scop] 1 mg over 3 days Patch 3 Day 1.5 mg transdermal Q72H Qty: 3 RF: 0 ondansetron 4 mg Tablet,Disintegrating 4 mg sublingual Q4H PRN (Reason: nausea, vomiting) Qty: 7 RF: 0 Continued multivitamin with minerals [Multiple Vitamin-Minerals] Tablet See Rx Instructions .ROUTE .COMPLEX RF: 0 cholecalciferol (vitamin D3) 100 mcg (4,000 unit) Tablet 4,000 unit feeding tube DAILY RF: 0 Selsun Blue 1 % Shampoo 1 applic TOPICAL 2XWK RF: 0 Discontinued potassium chloride 20 mEq/15 mL liquid 10 meq feeding tube BID RF: 0 Tar Gel 1 applic topical 2XWK RF: 0 famotidine 20 mg Tablet 20 mg feeding tube DAILY RF: 0 bisacodyl [Dulcolax (bisacodyl)] 10 mg Suppository 10 mg NM DIRECTED PRN (Reason: Constipation) RF: 0 Fleet Enema 19-7 gram/118 mL Enema 118 ml NM DIRECTED PRN (Reason: Constipation) RF: 0 docusate sodium 100 mg Capsule See Rx Instructions .ROUTE .COMPLEX RF: 0 acetaminophen [Tylenol] 325 mg Capsule 650 mg feeding tube Q6H PRN (Reason: Fever Or Pain) RF: 0 gabapentin 250 mg/5 mL (5 mL) Solution 400 mg feeding tube BID RF: 0 sennosides [senna] 8.6 mg Tablet 8.6 mg feeding tube BID RF: 0 clonazepam [Klonopin] 0.5 mg Tablet 0.5 mg feeding tube BID RF: 0 magnesium hydroxide [Milk of Magnesia] 400 mg/5 mL Suspension 15 ml feeding tube DIRECTED PRN (Reason: Constipation) RF: 0 oxycodone 10 mg Tablet 10 mg feeding tube Q6H PRN (Reason: Pain) RF: 0 lactulose 20 gram/30 mL Solution 30 g feeding tube BID RF: 0 Probiotic 3 billion cell Capsule 0 mmu cells feeding tube BID RF: 0 Discharge Orders: Discharge Order (Routine); Ordered 08/30/19 Ordered By: Won Marsh Admission Data Admit Date/Time: 08/26/19 20:35 Attending Provider: Won Marsh Admit Provider: Kevin Aquino Primary Care Provider: Rainer Garcia Other Providers: Jon Thayer ; Kevin Auqino ; Malka Celis Other Interventions: Discharge Summary Assessment (RN) Last Done: 08/30/19 14:51 DC Date/Time DO NOT enter until pt leaves facility: 08/30/19 15:53 Coding Level of Care Code D/C Day Management >30 mins Diagnoses Aspiration pneumonia J69.0 Aspiration pneumonia type: due to vomit Laterality: bilateral Lung location: unspecified part of lung PEG tube malfunction K94.23 Vomiting R11.10 Brain injury S06.9X9A Possible urinary tract infection R39.89 Respiratory distress R06.03
== END 2019-08-30 15:53 | disposition hospice, inpatient (51) | DRG 177 ==
LOC: ED 16:03 → 2S 20:35 → SUATTDRO 20:35 → 2S 21:29 → 2W 08-28 14:58